=== PATIENT | male | born 1950 | race Caucasian/White ===

== ENCOUNTER → 2018-03-12 08:03 | Outpatient (CLI) | payer MEDICARE, OTHER, SELFPAY ==
[2018-03-12 12:39] LABS: Absolute Lymphocyte Count 1.04 X10^3/ul (0.83-4.51); Absolute Neutrophil Count 3.6 X10^3/uL (2.0-7.7); Basophil# 0.04 X10^3/uL; Basophil% 0.7 % (0-1); Eosinophil# 0.24 X10^3/uL; Eosinophils% 4.2 % (0-5); Hematocrit 37.7 % (40-54); Hemoglobin 11.5 g/dl (13.0-16.5); Lymphocyte # 1.04 X10^3/ul (4.0); Lymphocyte % 18.2 % (19-41); Mean Corp Hgb Conc 30.5 g/gl (32-36); Mean Corpuscular Hgb 26.9 pg (27.0-32.0); Mean Corpuscular Volume 88.1 fL (80-94); Mean Platelet Vol. 11.8 fl (6.2-12.0); Monocyte# 0.74 X10^3/uL; Neutrophil % 63.2 % (47-70); Platelet Count 213 K/mm3 (150-450); RBC Distribution Width CV 13.6 % (11.6-14.6); RBC Distribution Width SD 43.2 fl (35.1-43.9); Red Blood Count 4.28 M/mm3 (4.6-6.2); White Blood Count 5.7 K/mm3 (4.4-11.0)
[2018-03-12 12:41] LABS: POSITIVE COUNT NO; POSITIVE DIFFERENTIAL NO; POSITIVE MORPHOLOGY NO
[2018-03-12 12:56] LABS: ALB/GLOB Ratio 0.9 RATIO (0.9-2.4); AST(SGOT) 15 U/L (15-37); Alanine Aminotransfer ALT/SGPT 31 U/L (16-61); Albumin, Serum 3.3 g/dL (3.2-5.0); Alkaline Phosphatase 74 U/L (45-117); Anion Gap 7 (5-15); BUN 30 mg/dL (7-18); BUN/Creat Ratio 23.8 RATIO (10-20); Calcium,Total 8.4 mg/dL (8.5-10.1); Chloride 108 mmol/L (98-107); Cholesterol 200 mg/dL (200); Creatinine, Serum 1.26 mg/dL (0.70-1.30); EST Glomerular Filtration Rate 60 mL/min (>60); Est Glom Filt Rate - Afr Amer 73 mL/min (>60); Globulin 3.6 g/dL (2.2-4.2); Glucose 131 mg/dL (74-106); High Density Lipoprotein 44 mg/dL; PSA,Total - Annual Screen 1.07 ng/mL (0.00-4.00); Potassium 4.2 mmol/L (3.5-5.1); Protein, Total 6.9 g/dL (6.4-8.2); Sodium Level 141 mmol/L (136-145); Triglycerides 229 mg/dL; Very Low Density Lipoprotein 46 mg/dL (5-40)
[2018-03-12 13:04] LABS: Microalbumin,Random Urine 33.9 mg/L (NO RANGE EST.); Microalbumin:Creatinine Ratio 27.6 mg/g CRE (<30 mg/g CRE)
== END ==
PROVIDERS: Family Provider Family Medicine; PCP Family Medicine; Visit Provider Family Medicine
DX: E11.59 Type 2 diabetes mellitus with other circulatory complications (principal); I10 Essential (primary) hypertension; E78.5 Hyperlipidemia, unspecified; Z12.5 Encounter for screening for malignant neoplasm of prostate
CPT/HCPCS: 36415; 80053; 80061; 82043; 82570; 83036; 84153; 85025; G0103

== ENCOUNTER 2018-07-05 12:13 | Inpatient (IN) | payer MEDICARE, OTHER, SELFPAY ==
[2018-04-04 09:29] VITALS: BMI 38.5
[2018-07-05] VITALS (8 sets, daily range): BP systolic 117–153; BP diastolic 52–69; PULSE 72–104; RESP 15–18; TEMP 36.7–37.4; O2SAT 93–98; BMI 37.5
--- NOTE | 2018-07-05 12:50 | PCM.CONS.GEN ---
Reason for Consult Date of Consultation: 07/05/18 Reason for Consultation: Hematochezia History of Present Illness: The patient is a 67 year old M who noted onset of bright blood mixed within his stool starting this morning. He denied melena before. He notes no abdominal pain. He had a prior screening colonoscopy 20 years previously. His father of colon cancer which was the reason for his prior endoscopy. He has not had prior upper endoscopy. He takes a 81mg aspirin but has no other anticoagulants. hemoglobin today is 10.0 it is decreased approximately 2 g from previously measured Past Medical History Past Medical History (Chronic Problems): Chronic Problems (Last Reviewed 04/04/17 @ 10:59 by Vincent Gonzalez MD) History of left heart catheterization (Chronic) 09/26/2015 @ [facility]>tsfer to [facility] for CABG History of non-ST elevation myocardial infarction (NSTEMI) (Chronic) Hyperlipidemia (Chronic) Obstructive sleep apnea (Chronic) Diabetes mellitus, type II (Chronic) Hypertension (Chronic) Hx of CABG (Chronic) CABG X 3: BLANCO to LAD, SVG to PDA and SVG to Ramus 09/29/2015 @ [facility] per Dr. Milton Atherosclerotic heart disease of [place] coronary artery without angina pectoris (Chronic) CABG X 3: BLANCO to LAD, SVG to PDA and SVG to Ramus 09/29/2015 @ [facility] per Dr. Milton Obesity (BMI 30-39.9) (Chronic) Medical History: Medical History (Last Reviewed 04/04/17 @ 10:59 by Vincent Gonzalez MD) History of non-ST elevation myocardial infarction (NSTEMI) (Chronic) I25.2 Hyperlipidemia (Chronic) E78.5 Obstructive sleep apnea (Chronic) G47.33 Diabetes mellitus, type II (Chronic) E11.9 Hypertension (Chronic) I10 Atherosclerotic heart disease of [place] coronary artery without angina pectoris (Chronic) I25.10 CABG X 3: BLANCO to LAD, SVG to PDA and SVG to Ramus 09/29/2015 @ [facility] per Dr. Milton Obesity (BMI 30-39.9) (Chronic) E66.9 Allergies No Known Allergies Allergy (Verified 07/05/18 12:14) Home Medications: Ambulatory Orders Medication Instructions Recorded Amlodipine Besylate 10 mg PO DAILY 08/30/15 Garlic 2,000 mg PO DAILY 08/30/15 [place]-3 Fatty Acids/Fish Oil 2 ea PO BID 08/30/15 [[place] 3 1,000 mg Softgel] Aspirin [Aspirin, Baby] 81 mg PO DAILY@0800 09/23/15 Multivitamin [Daily Multiple 1 ea PO DAILY 09/23/15 Vitamin] Pravastatin [Pravachol] 80 mg PO QHS 11/03/15 cinnamon bark 500 mg capsule 1,000 mg PO BID ea 03/22/17 hydrochlorothiazide 25 mg tablet 25 mg PO QDAY 04/04/17 metformin 1,000 mg tablet 1,000 mg PO BID 04/04/17 lisinopril 40 mg tablet 40 mg PO DAILY 04/04/18 Surgical History: Surgical History (Last Reviewed 04/04/17 @ 10:59 by Vincent Gonzalez MD) History of left heart catheterization (Chronic) Z98.890 09/26/2015 @ [facility]>tsfer to [facility] for CABG Hx of CABG (Chronic) Z95.1 CABG X 3: BLANCO to LAD, SVG to PDA and SVG to Ramus 09/29/2015 @ [facility] per Dr. Milton Surgical History: - - Right thoracentesis for pleural effusion, Drain tube bile duct 08/24. Smoking Status: Never smoker - *Family History Maternal Family History: Family History (Last Reviewed 04/04/17 @ 10:59 by Vincent Gonzalez MD) Mother CAD (coronary artery disease) Hypertension Father Colon cancer Sister Parkinson's disease History Items: Diabetes Paternal Family History: Family History (Last Reviewed 04/04/17 @ 10:59 by Vincent Gonzalez MD) Mother CAD (coronary artery disease) Hypertension Father Colon cancer Sister Parkinson's disease History Items: Heart Disease Review of Systems Constitutional: Denies: Chills, Fever, Weight Change HEENT: Denies: Head Aches, Sinus Congestion, Sinus Drainage Cardiovascular: Denies: Chest Pain, Palpitations Respiratory: Denies: Cough, Shortness of breath at rest, Sputum production Gastrointestinal: Reports: Hematochezia. Denies: Abdominal Pain, Nausea, Vomiting Genitourinary: Denies: Dysuria Musculoskeletal: Denies: Joint Pain, Joint Tenderness Skin: Denies: Rash, Wounds Neurological: Denies: Numbness, Tingling, Focal weakness Psychiatric: Denies: Anxiety, Depression, Homicidal Ideations, Suicidal Ideations Hematologic/ Lymphatic: Denies: Easy Bruising, Easy Bleeding - Physical Exam General: Alert, Oriented x3, Cooperative Lungs: Clear to auscultation, Normal air movement Cardiovascular: Regular rate, No murmurs Abdomen: Bowel Sounds Present, Soft, Non Tender Vital Signs Temp Pulse Resp BP Pulse Ox 98.1 F 72 18 124/57 H 98 07/05/18 12:14 07/05/18 12:14 07/05/18 12:14 07/05/18 12:14 07/05/18 12:14 Oxygen Delivery Method Room Air Weight: 115.122 kg Body Mass Index (BMI) 37.5 Finger Stick Blood Glucose 391 Laboratory Tests Past 24 Hrs 07/05/18 07/05/18 07/05/18 12:30 12:30 12:30 WBC Pending RBC Pending Hgb Pending Hct Pending MCV Pending MCH Pending MCHC Pending RDW Pending RDW Differential Pending Plt Count Pending Neut % (Auto) Pending Absolute Neuts (auto) Pending Total Counted Pending PT Pending INR Pending APTT Pending Sodium Pending Potassium Pending Chloride Pending Carbon Dioxide Pending Anion Gap Pending BUN Pending Creatinine Pending Est GFR (MDRD) Af Amer Pending Est GFR (MDRD) Non-Af Pending BUN/Creatinine Ratio Pending Glucose Pending Calcium Pending Blood Type Antibody Screen 07/05/18 12:30 WBC RBC Hgb Hct MCV MCH MCHC RDW RDW Differential Plt Count Neut % (Auto) Absolute Neuts (auto) Total Counted PT INR APTT Sodium Potassium Chloride Carbon Dioxide Anion Gap BUN Creatinine Est GFR (MDRD) Af Amer Est GFR (MDRD) Non-Af BUN/Creatinine Ratio Glucose Calcium Blood Type Pending Antibody Screen Pending Assessment/Plan All Active Problems (Last Reviewed 04/04/17 @ 10:59 by Vincent Gonzalez MD) Carotid artery stenosis (Acute) Acute cholecystitis (Acute) Lactic acid increased (Acute) Abdominal pain (Acute) lower GI bleed-hematochezia I plan to perform upper and lower endoscopy. The patient understand the risks, benefits, complications and possible alternatives and consents to endoscopy. Plan for GoLYTELY bowel prep tonight and nothing by mouth with plans for endoscopy to 8:00 tomorrow morning. I already spoken with endoscopy staff and anesthesia.
--- NOTE | 2018-07-05 12:54 | CON.PCM_ITS ---
Reason for Consult Date of Consultation: 07/05/18 Reason for Consultation: Hematochezia History of Present Illness: The patient is a 67 year old M who noted onset of bright blood mixed within his stool starting this morning. He denied melena before. He notes no abdominal pain. He had a prior screening colonoscopy 20 years previously. His father of colon cancer which was the reason for his prior endoscopy. He has not had prior upper endoscopy. He takes a 81mg aspirin but has no other anticoagulants. hemoglobin today is 10.0 it is decreased approximately 2 g from previously measured Past Medical History Past Medical History (Chronic Problems): Chronic Problems (Last Reviewed 04/04/17 @ 10:59 by Vincent Gonzalez MD) History of left heart catheterization (Chronic) 09/26/[address] [facility]>tsfer to [facility] for CABG History of non-ST elevation myocardial infarction (NSTEMI) (Chronic) Hyperlipidemia (Chronic) Obstructive sleep apnea (Chronic) Diabetes mellitus, type II (Chronic) Hypertension (Chronic) Hx of CABG (Chronic) CABG X 3: BLANCO to LAD, SVG to PDA and SVG to Ramus 09/29/2015 @ [facility] per Dr. Milton Atherosclerotic heart disease of [place] coronary artery without angina pectoris (Chronic) CABG X 3: BLANCO to LAD, SVG to PDA and SVG to Ramus 09/29/2015 @ [facility] per Dr. Mitlon Obesity (BMI 30-39.9) (Chronic) Medical History: Medical History (Last Reviewed 04/04/17 @ 10:59 by Vincent Gonzalez MD) History of non-ST elevation myocardial infarction (NSTEMI) (Chronic) I25.2 Hyperlipidemia (Chronic) E78.5 Obstructive sleep apnea (Chronic) G47.33 Diabetes mellitus, type II (Chronic) E11.9 Hypertension (Chronic) I10 Atherosclerotic heart disease of [place] coronary artery without angina pectoris (Chronic) I25.10 CABG X 3: BLANCO to LAD, SVG to PDA and SVG to Ramus 09/29/2015 @ [facility] per Dr. Milton Obesity (BMI 30-39.9) (Chronic) E66.9 Allergies No Known Allergies Allergy (Verified 07/05/18 12:14) Home Medications: Ambulatory Orders Medication Instructions Recorded Amlodipine Besylate 10 mg PO DAILY 08/30/15 Garlic 2,000 mg PO DAILY 08/30/15 [place]-3 Fatty Acids/Fish Oil 2 ea PO BID 08/30/15 [[place] 3 1,000 mg Softgel] Aspirin [Aspirin, Baby] 81 mg PO DAILY@0800 09/23/15 Multivitamin [Daily Multiple 1 ea PO DAILY 09/23/15 Vitamin] Pravastatin [Pravachol] 80 mg PO QHS 11/03/15 cinnamon bark 500 mg capsule 1,000 mg PO BID ea 03/22/17 hydrochlorothiazide 25 mg tablet 25 mg PO QDAY 04/04/17 metformin 1,000 mg tablet 1,000 mg PO BID 04/04/17 lisinopril 40 mg tablet 40 mg PO DAILY 04/04/18 Surgical History: Surgical History (Last Reviewed 04/04/17 @ 10:59 by Vincent Gonzalez MD) History of left heart catheterization (Chronic) Z98.890 09/26/[address] [facility]>tsfer to [facility] for CABG Hx of CABG (Chronic) Z95.1 CABG X 3: BLANCO to LAD, SVG to PDA and SVG to Ramus 09/29/2015 @ [facility] per Dr. Milton Surgical History: - - Right thoracentesis for pleural effusion, Drain tube bile duct 08/24. Smoking Status: Never smoker - *Family History Maternal Family History: Family History (Last Reviewed 04/04/17 @ 10:59 by Vincent Gonzalez MD) Mother CAD (coronary artery disease) Hypertension Father Colon cancer Sister Parkinson's disease History Items: Diabetes Paternal Family History: Family History (Last Reviewed 04/04/17 @ 10:59 by Vincent Gonzalez MD) Mother CAD (coronary artery disease) Hypertension Father Colon cancer Sister Parkinson's disease History Items: Heart Disease Review of Systems Constitutional: Denies: Chills, Fever, Weight Change HEENT: Denies: Head Aches, Sinus Congestion, Sinus Drainage Cardiovascular: Denies: Chest Pain, Palpitations Respiratory: Denies: Cough, Shortness of breath at rest, Sputum production Gastrointestinal: Reports: Hematochezia. Denies: Abdominal Pain, Nausea, Vomiting Genitourinary: Denies: Dysuria Musculoskeletal: Denies: Joint Pain, Joint Tenderness Skin: Denies: Rash, Wounds Neurological: Denies: Numbness, Tingling, Focal weakness Psychiatric: Denies: Anxiety, Depression, Homicidal Ideations, Suicidal [place]le ations Hematologic/ Lymphatic: Denies: Easy Bruising, Easy Bleeding - Physical Exam General: Alert, Oriented x3, Cooperative Lungs: Clear to auscultation, Normal air movement Cardiovascular: Regular rate, No murmurs Abdomen: Bowel Sounds Present, Soft, Non Tender Vital Signs Temp Pulse Resp BP Pulse Ox 98.1 F 72 18 124/57 H 98 07/05/18 12:14 07/05/18 12:14 07/05/18 12:14 07/05/18 12:14 07/05/18 12:14 Oxygen Delivery Method Room Air Weight: 115.122 kg Body Mass Index (BMI) 37.5 Finger Stick Blood Glucose 391 Laboratory Tests Past 24 Hrs 07/05/18 07/05/18 07/05/18 12:30 12:30 12:30 WBC Pending RBC Pending Hgb Pending Hct Pending MCV Pending MCH Pending MCHC Pending RDW Pending RDW Differential Pending Plt Count Pending Neut % (Auto) Pending Absolute Neuts (auto) Pending Total Counted Pending PT Pending INR Pending APTT Pending Sodium Pending Potassium Pending Chloride Pending Carbon Dioxide Pending Anion Gap Pending BUN Pending Creatinine Pending Est GFR (MDRD) Af Amer Pending Est GFR (MDRD) Non-Af Pending BUN/Creatinine Ratio Pending Glucose Pending Calcium Pending Blood Type Antibody Screen 07/05/18 12:30 WBC RBC Hgb Hct MCV MCH MCHC RDW RDW Differential Plt Count Neut % (Auto) Absolute Neuts (auto) Total Counted PT INR APTT Sodium Potassium Chloride Carbon Dioxide Anion Gap BUN Creatinine Est GFR (MDRD) Af Amer Est GFR (MDRD) Non-Af BUN/Creatinine Ratio Glucose Calcium Blood Type Pending Antibody Screen Pending Assessment/Plan All Active Problems (Last Reviewed 04/04/17 @ 10:59 by Vincent Gonzalez MD) Carotid artery stenosis (Acute) Acute cholecystitis (Acute) Lactic acid increased (Acute) Abdominal pain (Acute) lower GI bleed-hematochezia I plan to perform upper and lower endoscopy. The patient understand the risks, benefits, complications and possible alternatives and consents to endoscopy. Plan for GoLYTELY bowel prep tonight and nothing by mouth with plans for endoscopy to 8:00 tomorrow morning. I already spoken with endoscopy staff and anesthesia.
[2018-07-05 12:56] LABS: Absolute Neutrophil Count 5.8 X10^3/uL (2.0-7.7); Basophil# 0.04 X10^3/uL; Basophil% 0.5 % (0-1); Eosinophil# 0.08 X10^3/uL; Eosinophils% 1.1 % (0-5); Hemoglobin 10.2 g/dl (13.0-16.5); Lymphocyte % 10.6 % (19-41); Mean Corp Hgb Conc 30.9 g/gl (32-36); Mean Corpuscular Hgb 26.4 pg (27.0-32.0); Mean Corpuscular Volume 85.5 fL (80-94); Mean Platelet Vol. 11.2 fl (6.2-12.0); Monocyte# 0.75 X10^3/uL; Neutrophil # 5.81 X10^3/uL (2.7-7.7); Neutrophil % 77.3 % (47-70); Platelet Count 203 K/mm3 (150-450); RBC Distribution Width CV 14.6 % (11.6-14.6); Red Blood Count 3.86 M/mm3 (4.6-6.2); White Blood Count 7.5 K/mm3 (4.4-11.0)
[2018-07-05 12:57] LABS: POSITIVE COUNT NO; POSITIVE DIFFERENTIAL NO; POSITIVE MORPHOLOGY NO
[2018-07-05 13:02] LABS: International Normalized Ratio 1.1; Prothrombin Time (Protime)PT. 13.7 SECONDS (11.7-14.9)
[2018-07-05 13:03] LABS: Partial Thromboplast Time 29.8 Seconds (24.1-36.2)
[2018-07-05] MEDS: 0.9% Normal Saline 1,000 ML 150 ML IV ×2 (13:14→18:05)
[2018-07-05 13:20] LABS: Anion Gap 7 (5-15); BUN 49 mg/dL (7-18); BUN/Creat Ratio 29.2 RATIO (10-20); Calcium,Total 8.4 mg/dL (8.5-10.1); Chloride 104 mmol/L (98-107); Creatinine, Serum 1.68 mg/dL (0.70-1.30); EST Glomerular Filtration Rate 43 mL/min (>60); Est Glom Filt Rate - Afr Amer 52 mL/min (>60); Estimated Creatinine Clearance 42.08 ml/min; Glucose 274 mg/dL (74-106); Potassium 5.3 mmol/L (3.5-5.1); Sodium Level 135 mmol/L (136-145)
--- NOTE | 2018-07-05 14:21 | ED.VISSUMM ---
- ER Visit Summary Date of Service: 07/05/18 Chief Complaint: GI bleed History of Present Illness: The patient is a 67 M who reports bright red blood in his stool today. He initially thought it was the red cough syrup he had been taking recently. Second episode of bloody stool made him feel lightheaded and he states he fell off the commode. He did not pass out. Patient has a history of coronary disease, [place], diabetes, sleep apnea. He takes baby aspirin daily but no other anticoagulants. He states his last colonoscopy was approximately 20 years ago. Physical Examination: Vital signs unremarkable. Patient lying in bed no acute distress. Heart is regular rate and rhythm. Lung sounds are clear. Abdomen is soft with no focal tenderness. Hypoactive bowel sounds are present. Rectal examination reveals what appears to be bright red blood on gloved finger. Test Results: CBC was normal white count with hemoglobin 10.2. In March his hemoglobin was 11.5. Chemistry studies reveal glucose of 274, BUN 49, creatinine 1.68. In March his creatinine was 1.26. Stool guaiac does return positive. Emergency Department Course and Treatment: Patient's vital signs been stable here. He has been receiving IV fluids. Dr. Arango saw the patient in the emergency room. He will plan to do upper and lower endoscopy tomorrow. Treatment Plan: [] Disposition: Admit Impression: GI bleed This note was generated with [employer] dictation software. It may contain incorrect words, spelling, and punctuation that were not noted in review of the chart prior to signing ED Disposition - Plan for ED Patient: Referrals: Refugio Peterson DO [Primary Care Provider] -
--- NOTE | 2018-07-05 14:49 | HP.PCM_ITS ---
Problem List (1) GI (gastrointestinal bleed) Status: Acute (2) Pre-syncope Status: Acute (3) Carotid artery stenosis Status: Chronic Comment: per Carotid doppler done10/01/15 prior to CABG @ [facility]. Right common carotid 50-69% (4) History of left heart catheterization Status: Chronic [facility] (5) History of non-ST elevation myocardial infarction (NSTEMI) Status: Chronic (6) Hyperlipidemia Status: Chronic Qualifiers: Hyperlipidemia type: pure hypercholesterolemia Qualified Code(s): E78.00 - Pure hypercholesterolemia, unspecified; E78.0 - Pure hypercholesterolemia (7) Obstructive sleep apnea Status: Chronic (8) Diabetes mellitus, type II Status: Chronic (9) Hypertension Status: Chronic Qualifiers: Hypertension type: essential hypertension Qualified Code(s): I10 - Essent ial (primary) hypertension (10) Hx of CABG Status: Chronic Comment: CABG X 3: BLANCO to LAD, SVG to PDA and SVG to Ramus 09/29/2015 @ [facility] per Dr. Milton (11) Atherosclerotic heart disease of [place] coronary artery without angina pectoris Status: Chronic Qualifiers: [place] vs. transplanted heart: [place] heart Qualified Code(s): I25.10 - Atherosclerotic heart disease of [place] coronary artery without angina pectoris Comment: CABG X 3: BLANCO to LAD, SVG to PDA and SVG to Ramus 09/29/2015 @ [facility] per Dr. Milton (12) Acute cholecystitis Status: Acute (13) Obesity (BMI 30-39.9) Status: Chronic (14) Lactic acid increased Status: Acute (15) Abdominal pain Status: Acute Qualifiers: Abdominal location: right upper quadrant Qualified Code(s): R10.11 - Right upper quadrant pain History of Present Illness Date of Admission: 07/05/18 Chief Complaint: Blood in stool The patient is a 67 year old M with past medical history cigar for hypertension, dyslipidemia CAD status post CABG who presented with blood in the stool. Per patient he was in his usual state of health until the morning of this admission when he used the bathroom and noticed sundar blood in the toilet bowl. Patient in addition did experience lightheadedness and apparently fell but did not lose consciousness. Subsequently presented to the emergency department and assessment of acute GI bleed of undetermined etiology made admitted to a monitored bed for further management. Patient was seen and assessed by Dr. Arango prior to patient being admitted with plans for patient undergo both upper and lower endoscopic evaluation on 07/06/2018. Past Medical History Past Medical History (Chronic Problems): Chronic Problems (Last Reviewed 04/04/17 @ 10:59 by Vincent Gonzalez MD) Carotid artery stenosis (Chronic) per Carotid doppler done10/01/15 prior to CABG @ [facility]. Right common carotid 50-69% History of left heart catheterization (Chronic) 09/26/2015 @ [facility]>tsfer to [facility] for CABG History of non-ST elevation myocardial infarction (NSTEMI) (Chronic) Hyperlipidemia (Chronic) Obstructive sleep apnea (Chronic) Diabetes mellitus, type II (Chronic) Hypertension (Chronic) Hx of CABG (Chronic) CABG X 3: BLANCO to LAD, SVG to PDA and SVG to Ramus 09/29/2015 @ [facility] per Dr. Milton Atherosclerotic heart disease of [place] coronary artery without angina pectoris (Chronic) CABG X 3: BLANCO to LAD, SVG to PDA and SVG to Ramus 09/29/2015 @ [facility] per Dr. Milton Obesity (BMI 30-39.9) (Chronic) Medical History: Medical History (Last Reviewed 07/05/18 @ 15:00 by Cr Hendricks MD) History of non-ST elevation myocardial infarction (NSTEMI) (Chronic) I25.2 Hyperlipidemia (Chronic) E78.5 Obstructive sleep apnea (Chronic) G47.33 Diabetes mellitus, type II (Chronic) E11.9 Hypertension (Chronic) I10 Atherosclerotic heart disease of [place] coronary artery without angina pectoris (Chronic) I25.10 CABG X 3: BLANCO to LAD, SVG to PDA and SVG to Ramus 09/29/2015 @ [facility] per Dr. Milton Obesity (BMI 30-39.9) (Chronic) E66.9 Allergies No Known Allergies Allergy (Verified 07/05/18 12:14) Home Medications: Ambulatory Orders Medication Instructions Recorded Amlodipine Besylate 10 mg PO DAILY 08/30/15 Garlic 2,000 mg PO DAILY 08/30/15 Simla-3 Fatty Acids/Fish Oil 2 ea PO BID 08/30/15 [Simla 3 1,000 mg Softgel] Aspirin [Aspirin, Baby] 81 mg PO DAILY@0800 09/23/15 Multivitamin [Daily Multiple 1 ea PO DAILY 09/23/15 Vitamin] Pravastatin [Pravachol] 80 mg PO QHS 11/03/15 cinnamon bark 500 mg capsule 1,000 mg PO BID ea 03/22/17 hydrochlorothiazide 25 mg tablet 25 mg PO QDAY 04/04/17 metformin 1,000 mg tablet 1,000 mg PO BID 04/04/17 lisinopril 40 mg tablet 40 mg PO DAILY 04/04/18 Surgical History: Surgical History (Last Reviewed 07/05/18 @ 15:00 by Cr Hendricks MD) History of left heart catheterization (Chronic) Z98.890 09/26/2015 @ [facility]>tsfer to [facility] for CABG Hx of CABG (Chronic) Z95.1 CABG X 3: BLANCO to LAD, SVG to PDA and SVG to Ramus 09/29/2015 @ [facility] per Dr. Milton Surgical History: - - Right thoracentesis for pleural effusion, Drain tube bile duct 08/24. Smoking Status: Never smoker - *Family History Maternal Family History: Family History (Last Reviewed 07/05/18 @ 15:00 by Cr Hendricks MD) Mother CAD (coronary artery disease) Hypertension Father Colon cancer Sister Parkinson's disease History Items: Diabetes Paternal Family History: Family History (Last Reviewed 07/05/18 @ 15:00 by Cr Hendricks MD) Mother CAD (coronary artery disease) Hypertension Father Colon cancer Sister Parkinson's disease History Items: Heart Disease Review of Systems Constitutional: Reports: Weakness HEENT: Denies: Head Aches, Sinus Congestion, Sinus Drainage Cardiovascular: Reports: Syncope. Denies: Chest Pain, Orthopnea, Palpitations, Paroxysmal Noc. Dyspnea Respiratory: Denies: Cough, Shortness of breath at rest, Shortness of breath upon exertion, Sputum production Gastrointestinal: Denies: Abdominal Pain, Hematemesis, Hematochezia, Nausea, Melena, Vomiting Genitourinary: Denies: Dysuria, Frequency, Hematuria, Urgency Musculoskeletal: Denies: Joint Pain, Joint Tenderness Skin: Denies: Rash Neurological: Denies: Focal weakness, Numbness, Tingling Psychiatric: Denies: Homicidal Ideations, Suicidal Ideations Hematologic/ Lymphatic: Denies: Easy Bruising, Easy Bleeding VTE Information - Inpt Only VTE Present on Admission: No VTE Mechan Device Prophylaxis: Knee High JUVE Hose VTE Pharm Prophylaxis ordered?: No Reason prophylaxis not ordered:: Medical Contraindication Patient Problems: Active and Suspected Problems (Last Reviewed 04/04/17 @ 10:59 by Vincent Gonzalez MD) GI (gastrointestinal bleed) (Acute) Pre-syncope (Acute) Objective: GENERAL: cooperative HEENT: Atraumatic; moist oral mucosa EYES; Anicteric, Normal Conjunctiva NECK; supple, normal thyroid, no distended JVD. RESPIRATORY: Diminished to auscultation bilaterally, CARDIOVASCULAR: Regular S1 S2, no audible murmurs GI: soft, non-tender, normoactive bowel sounds, : No Renal angle tenderness; EXTREMITIES: No edema, no clubbing, no cyanosis. MUSCULOSKELETAL: No Joint Tenderness; no muscle waisting NEURO: Awake; no lateralizing signs. SKIN: No Rash PSYCH; Normal affect - Physical Exam Vital Signs Temp Pulse Resp BP Pulse Ox 98.1 F 86 16 125/55 H 96 07/05/18 12:14 07/05/18 14:42 07/05/18 14:42 07/05/18 14:42 07/05/18 14:42 Oxygen Delivery Method Room Air Weight: 115.122 kg Body Mass Index (BMI) 37.5 Finger Stick Blood Glucose 391 Microbiology Past 72 Hours 07/05/18 13:35 Stool Occult Blood (SANTHOSH) - Final Stool Occult Blood Positive Laboratory Tests Past 24 Hrs 07/05/18 07/05/18 07/05/18 12:30 12:30 12:30 WBC 7.5 RBC 3.86 L Hgb 10.2 L Hct 33.0 L MCV 85.5 MCH 26.4 L MCHC 30.9 L RDW 14.6 RDW Differential 46.0 H Plt Count 203 MPV 11.2 Immature Gran % (Auto) 0.500 Neut % (Auto) 77.3 H Lymph % (Auto) 10.6 L [place] % (Auto) 10.0 Eos % (Auto) 1.1 Baso % (Auto) 0.5 Absolute Neuts (auto) 5.8 Absolute Lymphs (auto) 0.80 L Total Counted Not Reportable PT 13.7 INR 1.1 APTT 29.8 Sodium 135 L Potassium 5.3 H Chloride 104 Carbon Dioxide 24.0 Anion Gap 7 BUN 49 H Creatinine 1.68 H Estim Creat Clear Calc 42.08 Est GFR (MDRD) Af Amer 52 L Est GFR (MDRD) Non-Af 43 L BUN/Creatinine Ratio 29.2 H Glucose 274 H Calcium 8.4 L Blood Type Antibody Screen 07/05/18 12:30 WBC RBC Hgb Hct MCV MCH MCHC RDW RDW Differential Plt Count MPV Immature Gran % (Auto) Neut % (Auto) Lymph % (Auto) [place] % (Auto) Eos % (Auto) Baso % (Auto) Absolute Neuts (auto) Absolute Lymphs (auto) Total Counted PT INR APTT Sodium Potassium Chloride Carbon Dioxide Anion Gap BUN Creatinine Estim Creat Clear Calc Est GFR (MDRD) Af Amer Est GFR (MDRD) Non-Af BUN/Creatinine Ratio Glucose Calcium Blood Type O POSITIVE Antibody Screen NEGATIVE Assessment/Plan All Active Problems (Last Reviewed 04/04/17 @ 10:59 by Vincent Gonzalez MD) GI (gastrointestinal bleed) (Acute) Pre-syncope (Acute) Acute cholecystitis (Acute) Lactic acid increased (Acute) Abdominal pain (Acute) Patient is a 67-year-old gentleman who presented with bleeding per rectum and presyncope 1. Acute Lower GI bleed: Patient has been admitted to monitored bed. Patient was typed and screened for 2 unit PRBC started and PPI consultation placed to Dr. Otto who did evaluate the patient in the emergency department with plans for patient undergo endoscopic evaluation by yusef on 07/06/2018. 2. Presyncope secondary to above patient has been admitted to monitored bed for subsequent management 3. Coronary artery disease status post CABG; CABG X 3: BLANCO to LAD, SVG to PDA and SVG to Ramus 09/29/2015 @ [facility] 4. Essential hypertension held patient antihypertensive medication with patient having experienced presyncope 5. Dyslipidemia-patient is on statin therapy, continued at home dose 6. Diabetes mellitus type II: Controlled, patient's oral hypoglycemics held. Placed on Accu-Cheks a.c. and at bedtime and covered with sliding scale insulin 7. Obesity with BMI of 37.5 weight loss advised 8. DVT prophylaxis bilateral SCDs Code Visit Inpatient E&M: 34994 Init Hosp L3
[2018-07-05 17:55] LABS: Bedside Glucose 168 mg/dL (70-110)
[2018-07-05 18:05] LABS: Hematocrit 30.8 % (40-54); Hemoglobin 9.8 g/dl (13.0-16.5)
[2018-07-05] MEDS: Electrolyte Solution/Peg's 4000 ML PO (18:07)
[2018-07-05] MEDS: Pravastatin 80 MG Tablet PO (21:16)
[2018-07-05 22:35] LABS: Bedside Glucose 205 mg/dL (70-110)
[2018-07-05 22:44] LABS: Hematocrit 29.3 % (40-54); Hemoglobin 9.2 g/dl (13.0-16.5)
[2018-07-06] VITALS (13 sets, daily range): BP systolic 115–165; BP diastolic 58–76; PULSE 62–113; RESP 16–18; TEMP 36.3–37.4; O2SAT 92–97; BMI 37.5
[2018-07-06] MEDS: 0.9% Normal Saline 1,000 ML 100 ML IV ×3 (01:59→21:53)
[2018-07-06 02:34] LABS: Hematocrit 32.1 % (40-54); Hemoglobin 10.2 g/dl (13.0-16.5)
[2018-07-06 06:41] LABS: Bedside Glucose 193 mg/dL (70-110)
[2018-07-06 07:38] LABS: Absolute Lymphocyte Count 0.65 X10^3/ul (0.83-4.51); Absolute Neutrophil Count 4.2 X10^3/uL (2.0-7.7); Basophil# 0.03 X10^3/uL; Basophil% 0.5 % (0-1); Eosinophil# 0.05 X10^3/uL; Eosinophils% 0.8 % (0-5); Lymphocyte # 0.65 X10^3/ul (4.0); Lymphocyte % 10.8 % (19-41); Mean Corpuscular Hgb 26.5 pg (27.0-32.0); Mean Corpuscular Volume 85.3 fL (80-94); Mean Platelet Vol. 11.9 fl (6.2-12.0); Monocyte# 1.05 X10^3/uL; Monocyte% 17.4 % (0-10); Neutrophil # 4.18 X10^3/uL (2.7-7.7); Neutrophil % 69.5 % (47-70); Platelet Count 181 K/mm3 (150-450); RBC Distribution Width CV 14.5 % (11.6-14.6); RBC Distribution Width SD 43.2 fl (35.1-43.9)
[2018-07-06 07:43] LABS: POSITIVE COUNT NO; POSITIVE DIFFERENTIAL NO; POSITIVE MORPHOLOGY NO
[2018-07-06 07:56] LABS: Anion Gap 5 (5-15); BUN 33 mg/dL (7-18); BUN/Creat Ratio 25.4 RATIO (10-20); Calcium,Total 7.9 mg/dL (8.5-10.1); Chloride 109 mmol/L (98-107); EST Glomerular Filtration Rate 58 mL/min (>60); Est Glom Filt Rate - Afr Amer 70 mL/min (>60); Estimated Creatinine Clearance 54.38 ml/min; Glucose 190 mg/dL (74-106); Potassium 4.8 mmol/L (3.5-5.1); Sodium Level 138 mmol/L (136-145)
--- NOTE | 2018-07-06 08:00 | IMM_PTH ---
PATIENT: JESUS ALBERTO BUSTILLO Jr. LOC: [facility] U#:[id number] AGE/SX: 67/M ROOM: [facility] RE07/05/[address]: Dr. Jayden Vilchis DO : 1950 BED: 1 DIS: 07/10/2018 SPEC #: [id number] RECD: 07/07/18 09:22 STATUS: SOUSamia REQ #: [id number] WALESKA: 07/06/18 08:[address]: Fan Otto DEPT: IMMUNOHISTOCHEMISTRY RECD BY: Kay Llanos ENTERED: 07/07/18 09:24 SP TYPE: IMMUNO OTHR DR: MD Dr. Jayden Kenny DO Dr. Mark Stutzman, DO Dr. Paul Moodispaw, MD Tissues: A - Stomach, NOS Procedures: H Pylori (initial) Comments: @ Ordering doctor for H.PYLORI edited from to @ by CONCHA at 07/07/18923 @ Submitting doctor edited from to @ by CONCHA at 07/07/18923 PHYSICIAN & INSTITUTION [place] [id number] SPECIMEN INFORMATION: Tissue Source: A - Gastric antrum biopsy Clinical Info: GI bleed Specimen Number: [id number] CPT code: 82380 METHODOLOGY: Deparaffinized sections of prefer/formalin-fixed tissue or PAP/DQ stained slides are incubated with monoclonal/polyclonal antibodies/oligonucleotide probes. Localization is made via biotin free immunoperoxidase method. Appropriate controls are performed and reacted as expected. Results on target cell population are indicated in the following table: RESULTS: ANTIBODY / CLONE RESULT Block A H Pylori (polyclonal) negative These tests were developed and their performance characteristics determined by [facility]. They may not have been cleared or approved by the U.S. Food and Drug Administration. The FDA has determined that such clearance or approval is not necessary. INTERPRETATION: A. Gastric antrum, biopsy: Negative for Helicobacter pylori organisms. JAYY:paloma 07/08/18
--- NOTE | 2018-07-06 08:00 | EGD_PTH ---
PATIENT: JESUS ALBERTO BUSTILLO Jr. LOC: [facility] U#:[id number] AGE/SX: 67/M ROOM: [facility] RE07/05/[address]: Dr. Jayden Vilchis DO : 1950 BED: 1 DIS: 07/10/2018 SPEC #: [id number] RECD: 07/06/18 09:23 STATUS: IMMANUEL REAyla #: [id number] WALESKA: 07/06/18 08:[address]: Fan Otto DEPT: SURGICAL PATHOLOGY RECD BY: Donna Allison ENTERED: 07/07/18 10:29 SP TYPE: EGD BIOPSY OTHR DR: MD Dr. Jayden Kenny DO Dr. Mark Stutzman, DO Dr. Paul Moodispaw, MD Tissues: A - Gastric mucous membrane B - Ascending colon C - POLYP D - POLYP Procedures: Surgery Specimen Level IV Comments: @ Ordering doctor for SUIV edited from to @ melissa MARTINEZ at 07/07/18 1029 @ Submitting doctor edited from to @ melissa MARTINEZ at 07/07/18 1029 HEADER OPERATION: Colonoscopy, EGD ([facility] [place]) PRE-OP DIAGNOSIS: GI bleed TISSUE SUBMITTED: A. Biopsy gastric antrum, H. Pylori and path, B. Biopsy mass ascending colon, C. Polyp 35 cm, D. Polyp 20 cm MICROSCOPIC DIAGNOSIS A. Gastric antrum, biopsy: Mild gastritis. See microscopic description and comment. B. Mass ascending colon, biopsy: A fragment of colonic mucosa with changes suggestive of serrated adenoma and cautery artifacts. See comment. C. Polyp at 35 cm, biopsy: Fragments of tubulovillous adenoma with high grade dysplasia. See comment. D. Polyp at 20 cm, biopsy: Fragments of tubulovillous adenoma. SJ:paloma 07/08/18 COMMENT A. The results of immunohistochemistry for Helicobacter pylori will be reported separately ([id number]). B. Correlation with clinical, endoscopic findings and appropriate follow up are necessary. C. A pedicle is noted in the larger piece of polyp which is free of adenomatous changes. High grade dysplastic changes are noted on the luminal surface of the polyp. MICROSCOPIC DESCRIPTION Slides are reviewed. A. The specimen shows fragments of gastric mucosa with chronic inflammatory cell infiltrates in the lamina propria consisting of lymphocytes and plasma cells, consistent with mild chronic gastritis. GROSS DESCRIPTION A - Received in fixative is one container labeled with the patient's name and designated biopsy gastric antrum. The specimen consists of one irregular fragment of light gooden soft tissue that measures 0.4 x 0.3 x 0.1 cm. The specimen is totally submitted in one cassette. B - Received in fixative is one container labeled with the patient's name and designated biopsy mass ascending colon. The specimen consists of one irregular fragment of light gooden soft tissue that measures 0.3 x 0.2 x 0.1 cm. The specimen is totally submitted in one cassette. C - Received in fixative is one container labeled with the patient's name and designated polyp 35 cm. The specimen consists of two gooden-pink polyps measuring 2 x 2 x 1.2 cm and 1.5 x 1.5 x 0.8 cm. The larger polyp shows a pedicle and measures 0.5 cm in length and 0.7 cm in diameter. Apparent base of smaller polyp is inked black. The polyp is serially sectioned. The smaller polyp is bisected. The entire specimen is submitted in three cassettes as follows: 1 & 2 - larger polyp, 3 - smaller polyp. D - Received in fixative is one container labeled with the patient's name and designated polyp 20 cm. The specimen consists of multiple irregular fragments of light gooden soft tissue that in aggregate measure 1 x 0.3 x 0.1 cm. The specimen is totally submitted in one cassette. / SJ:rg 07/07/18 TC:1 CPT: 03599 x4
--- NOTE | 2018-07-06 08:39 | RAD_ITS ---
STUDY: X-RAY CHEST REASON FOR EXAM: Male, 67 years old. Cough. TECHNIQUE: Frontal and lateral views of the chest. COMPARISON: September 21, 2015 FINDINGS: The lungs are hyperexpanded and there is a diffuse interstitial pattern unchanged. There are no focal consolidations. There is no demonstrated pleural abnormality. There is stable cardiomegaly with sternotomy wires and changes of coronary artery bypass grafting. Normal mediastinum and benito. Normal visualized pulmonary arteries. There is atherosclerotic calcification of the aortic arch with tortuosity. There are diffuse degenerative changes of the visualized thoracic spine. Normal visualized ribs, clavicles, and shoulders. There is no demonstrated abnormality of the visualized soft tissue structures of the upper abdomen. RAD/Chest PA and Lateral IMPRESSION: Stable appearance of the chest. No acute finding. Electronically Signed: Red Simon MD at 15:27 EDT , Service support ,
--- NOTE | 2018-07-06 08:40 | EKG12_ITS ---
Test Reason : PRE-OP Blood Pressure : / mmHG Vent. Rate : 086 BPM Atrial Rate : 086 BPM P-R Int : 196 ms QRS Dur : 080 ms QT Int : 364 ms P-R-T Axes : 045 067 197 degrees QTc Int : 435 ms Normal sinus rhythm Cannot rule out Inferior infarct , age undetermined ST & T wave abnormality, consider lateral ischemia Abnormal ECG Confirmed by PRIYANKA HAM, ANU ([id number]), editor in chief newspaper HEATHER PHILLIP ([id number]) on 07/08/2018 11:31:37 AM Referred By: PALAK Confirmed By:ANU MATHEW MD
--- NOTE | 2018-07-06 08:41 | PCM.PN.SRG ---
Patient Problems: Active and Suspected Problems (Last Reviewed 07/05/18 @ 15:00 by Cr Hendricks MD) GI (gastrointestinal bleed) (Acute) Pre-syncope (Acute) Subjective: GI bleeding, some liquid stool still in commode - Physical Exam General: Alert, Oriented x3, Cooperative Neck: Supple, No JVD, Negative Carotid Bruits Lungs: Clear to auscultation, Normal air movement Cardiovascular: Regular rate, No murmurs Abdomen: Bowel Sounds Present, Soft, Non Tender Vital Signs Temp Pulse Resp BP Pulse Ox 97.4 F L 89 18 154/60 H 97 07/06/18 03:10 07/06/18 07:00 07/06/18 03:10 07/06/18 03:10 07/06/18 03:10 Oxygen Delivery Method Room Air Weight: 115.3 kg Body Mass Index (BMI) 37.5 Finger Stick Blood Glucose 391 Intake and Output for Last 24 Hours 07/04/18 07/05/18 07/06/18 23:59 23:59 23:59 Intake Total 1932 / 1932 3757 / 3757 Output Total 2 / 2 Balance 1932 / 1932 3755 / 3755 Microbiology Past 72 Hours 07/05/18 13:35 Stool Occult Blood (SANTHOSH) - Final Stool Occult Blood Positive Laboratory Tests Past 24 Hrs 07/05/18 07/05/18 07/05/18 12:30 12:30 12:30 WBC 7.5 RBC 3.86 L Hgb 10.2 L Hct 33.0 L MCV 85.5 MCH 26.4 L MCHC 30.9 L RDW 14.6 RDW Differential 46.0 H Plt Count 203 MPV 11.2 Immature Gran % (Auto) 0.500 Neut % (Auto) 77.3 H Lymph % (Auto) 10.6 L [place] % (Auto) 10.0 Eos % (Auto) 1.1 Baso % (Auto) 0.5 Absolute Neuts (auto) 5.8 Absolute Lymphs (auto) 0.80 L Total Counted Not Reportable PT 13.7 INR 1.1 APTT 29.8 Sodium 135 L Potassium 5.3 H Chloride 104 Carbon Dioxide 24.0 Anion Gap 7 BUN 49 H Creatinine 1.68 H Estim Creat Clear Calc 42.08 Est GFR (MDRD) Af Amer 52 L Est GFR (MDRD) Non-Af 43 L BUN/Creatinine Ratio 29.2 H Glucose 274 H Calcium 8.4 L Magnesium Troponin I Blood Type Antibody Screen Crossmatch 07/05/18 07/05/18 07/05/18 12:30 12:30 16:25 WBC RBC Hgb Hct MCV MCH MCHC RDW RDW Differential Plt Count MPV Immature Gran % (Auto) Neut % (Auto) Lymph % (Auto) [place] % (Auto) Eos % (Auto) Baso % (Auto) Absolute Neuts (auto) Absolute Lymphs (auto) Total Counted PT INR APTT Sodium Potassium Chloride Carbon Dioxide Anion Gap BUN Creatinine Estim Creat Clear Calc Est GFR (MDRD) Af Amer Est GFR (MDRD) Non-Af BUN/Creatinine Ratio Glucose Calcium Magnesium Troponin I 0.018 Blood Type O POSITIVE Antibody Screen NEGATIVE Crossmatch See Detail 07/05/18 07/05/18 07/05/18 17:45 19:15 22:30 WBC RBC Hgb 9.8 L 9.2 L Hct 30.8 L 29.3 L MCV MCH MCHC RDW RDW Differential Plt Count MPV Immature Gran % (Auto) Neut % (Auto) Lymph % (Auto) [place] % (Auto) Eos % (Auto) Baso % (Auto) Absolute Neuts (auto) Absolute Lymphs (auto) Total Counted PT INR APTT Sodium Potassium Chloride Carbon Dioxide Anion Gap BUN Creatinine Estim Creat Clear Calc Est GFR (MDRD) Af Amer Est GFR (MDRD) Non-Af BUN/Creatinine Ratio Glucose Calcium Magnesium Troponin I 0.022 Blood Type Antibody Screen Crossmatch 07/05/18 07/06/18 07/06/18 22:30 02:07 06:00 WBC 6.0 RBC 3.40 L Hgb 10.2 L 9.0 L Hct 32.1 L 29.0 L MCV 85.3 MCH 26.5 L MCHC 31.0 L RDW 14.5 RDW Differential 43.2 Plt Count 181 MPV 11.9 Immature Gran % (Auto) 1.000 H Neut % (Auto) 69.5 Lymph % (Auto) 10.8 L [place] % (Auto) 17.4 H Eos % (Auto) 0.8 Baso % (Auto) 0.5 Absolute Neuts (auto) 4.2 Absolute Lymphs (auto) 0.65 L Total Counted Not Reportable PT INR APTT Sodium Potassium Chloride Carbon Dioxide Anion Gap BUN Creatinine Estim Creat Clear Calc Est GFR (MDRD) Af Amer Est GFR (MDRD) Non-Af BUN/Creatinine Ratio Glucose Calcium Magnesium Troponin I 0.030 Blood Type Antibody Screen Crossmatch 07/06/18 06:00 WBC RBC Hgb Hct MCV MCH MCHC RDW RDW Differential Plt Count MPV Immature Gran % (Auto) Neut % (Auto) Lymph % (Auto) [place] % (Auto) Eos % (Auto) Baso % (Auto) Absolute Neuts (auto) Absolute Lymphs (auto) Total Counted PT INR APTT Sodium 138 Potassium 4.8 Chloride 109 H Carbon Dioxide 24.0 Anion Gap 5 BUN 33 H Creatinine 1.30 Estim Creat Clear Calc 54.38 Est GFR (MDRD) Af Amer 70 Est GFR (MDRD) Non-Af 58 L BUN/Creatinine Ratio 25.4 H Glucose 190 H Calcium 7.9 L Magnesium 2.0 Troponin I Blood Type Antibody Screen Crossmatch POC Glucose 07/06/18 07/05/18 07/05/18 06:33 21:12 17:48 POC Glucose 193 H 205 H 168 H Medical Necessity - Tobacco Use Smoking Status: Never smoker Assessment/Plan All Active Problems (Last Reviewed 07/05/18 @ 15:00 by Cr Hendricks MD) GI (gastrointestinal bleed) (Acute) Pre-syncope (Acute) Acute cholecystitis (Acute) Lactic acid increased (Acute) Abdominal pain (Acute) lower GI bleed-hematochezia - Ascending colon cancer, multiple polyps Patient has normal upper endoscopy. COlonsocopy demonstrated a bulky tumor in the ascending colon with smaller polyps in the cecal base. Tumor was biopsied, inked and marker clip applied. One larger polyp at 35cm was removed with a good stalk and fantasma inked. 2 smaller rectal polyps were removed with a snare. Discussed the findings with the patient. HE would like to proceed with laparoscopic right hemicolectomy. WIll maintain on clear liquids. continue per op prep with neomycin and flagyl. Will check KUB, EKG, CXR and labs with CEA. Will ask medicine colleagues risk stratification given his prior MN and CABG. patient currently has no cardiac symptoms.
--- NOTE | 2018-07-06 08:44 | OP.ENDO_ITS ---
07/06/2018 Refugio Peterson [address] [place] [address] Re : Upper GI endoscopy procedure for Frank Mcgrath Dear Dr. Peterson This procedure was performed on Friday, July 06, 2018. My impressions and recommendations are as follows: Impressions : - Normal examined jejunum. - Normal examined duodenum. - Normal stomach. Biopsied. - Normal esophagus. Recommendations : - Await pathology results. - [facility]. - Continue present medications. My findings are described in the full procedure note, which is enclosed. If I can be of further assistance, please feel free to contact me at Doctor phone number(s): , Work: . Sincerely, Fan Otto MD 07/06/2018 8:44:25 AM This report has been signed electronically.
--- NOTE | 2018-07-06 08:50 | OP.ENDO_ITS ---
07/06/2018 Refugio Peterson [address] [place] [address] Re : Colonoscopy procedure for Frank Mcgrath Dear Dr. Peterson This procedure was performed on Friday, July 06, 2018. My impressions and recommendations are as follows: Impressions : - Hemorrhoids found on perianal exam. - Likely malignant tumor in the mid ascending colon. Biopsied. Tattooed. Clip (MR conditional) was placed. - One 17 mm polyp at 35 cm proximal to the anus, removed with a hot snare. Resected and retrieved. Injected. - Two small polyps at the recto-sigmoid colon, removed with a hot snare. Resected and retrieved. - The distal rectum and anal verge are normal on retroflexion view. Recommendations : - [facility]. - Clear liquid diet. - Surgical consultation for consideration of a right hemicolectomy tomorrow. - Repeat colonoscopy in 1 year for surveillance. - Continue present medications. - No aspirin, ibuprofen, naproxen, or other non-steroidal anti-inflammatory drugs for 3 days. My findings are described in the full procedure note, which is enclosed. If I can be of further assistance, please feel free to contact me at Doctor phone number(s): , Work: . Sincerely, Fan Otto MD 07/06/2018 8:49:26 AM This report has been signed electronically.
--- NOTE | 2018-07-06 09:38 | PCM.PN.HOSP ---
Patient Problems: Active and Suspected Problems (Last Reviewed 07/05/18 @ 15:00 by Cr Hendricks MD) GI (gastrointestinal bleed) (Acute) Pre-syncope (Acute) Subjective: Patient is a 67-year-old gentleman who presented with bleeding per rectum and presyncope. Consultation was placed to general surgery patient was seen by Dr. Otto who did perform endoscopic evaluation both upper and lower on the morning of 07/06/2018. Findings included a bulky tumor in the ascending colon with small polyp in the cecal base. Tumor was biopsied. Patient was also found to have a large polyp at 35 cm which was removed. Case discussed with that meant plan is for patient to undergo colon resection on 07/07/2018 pending cardiology evaluation Objective: GENERAL: cooperative HEENT: Atraumatic; moist oral mucosa EYES; Anicteric, Normal Conjunctiva NECK; supple, normal thyroid, no distended JVD. RESPIRATORY: Diminished to auscultation bilaterally, CARDIOVASCULAR: Regular S1 S2, no audible murmurs GI: soft, non-tender, normoactive bowel sounds, : No Renal angle tenderness; EXTREMITIES: No edema, no clubbing, no cyanosis. MUSCULOSKELETAL: No Joint Tenderness; no muscle waisting NEURO: Awake; no lateralizing signs. SKIN: No Rash PSYCH; Normal affect Vitals/I&O's: Vital Signs Temp Pulse Resp BP Pulse Ox 98.2 F 90 16 129/66 H 93 07/06/18 08:55 07/06/18 08:55 07/06/18 08:55 07/06/18 08:55 07/06/18 08:55 Oxygen Delivery Method Room Air Weight: 115.3 kg Body Mass Index (BMI) 37.5 Finger Stick Blood Glucose 391 Intake and Output for Last 24 Hours 07/04/18 07/05/18 07/06/18 23:59 23:59 23:59 Intake Total 1932 2597 / 4757 Output Total / Balance 1932 4855 / 4755 Microbiology Past 72 Hours 07/05/18 13:35 Stool Stool Occult Blood ([facility]) - Final Occult Blood Positive Laboratory Results 07/05/18 12:30: WBC 7.5, RBC 3.86 L, Hgb 10.2 L, Hct 33.0 L, MCV 85.5, MCH 26.4 L, MCHC 30.9 L, RDW 14.6, RDW Differential 46.0 H, Plt Count 203, MPV 11.2, Immature Gran % (Auto) 0.500, Neut % (Auto) 77.3 H, Lymph % (Auto) 10.6 L, [place] % (Auto) 10.0, Eos % (Auto) 1.1, Baso % (Auto) 0.5, Absolute Neuts (auto) 5.8, Absolute Lymphs (auto) 0.80 L, Total Counted Not Reportable 07/05/18 12:30: PT 13.7, INR 1.1, APTT 29.8 07/05/18 12:30: Sodium 135 L, Potassium 5.3 H, Chloride 104, Carbon Dioxide 24.0, Anion Gap 7, BUN 49 H, Creatinine 1.68 H, Estim Creat Clear Calc 42.08, Est GFR (MDRD) Af Amer 52 L, Est GFR (MDRD) Non-Af 43 L, BUN/Creatinine Ratio 29.2 H, Glucose 274 H, Calcium 8.4 L 07/05/18 12:30: Blood Type O POSITIVE, Antibody Screen NEGATIVE 07/05/18 12:30: Crossmatch See Detail 07/05/18 16:25: Troponin I 0.018 07/05/18 17:45: Hgb 9.8 L, Hct 30.8 L 07/05/18 17:48: POC Glucose 168 H 07/05/18 19:15: Troponin I 0.022 07/05/18 21:12: POC Glucose 205 H 07/05/18 22:30: Hgb 9.2 L, Hct 29.3 L 07/05/18 22:30: Troponin I 0.030 07/06/18 02:07: Hgb 10.2 L, Hct 32.1 L 07/06/18 06:00: WBC 6.0, RBC 3.40 L, Hgb 9.0 L, Hct 29.0 L, MCV 85.3, MCH 26.5 L, MCHC 31.0 L, RDW 14.5, RDW Differential 43.2, Plt Count 181, MPV 11.9, Immature Gran % (Auto) 1.000 H, Neut % (Auto) 69.5, Lymph % (Auto) 10.8 L, [place] % (Auto) 17.4 H, Eos % (Auto) 0.8, Baso % (Auto) 0.5, Absolute Neuts (auto) 4.2, Absolute Lymphs (auto) 0.65 L, Total Counted Not Reportable 07/06/18 06:00: Sodium 138, Potassium 4.8, Chloride 109 H, Carbon Dioxide 24.0, Anion Gap 5, BUN 33 H, Creatinine 1.30, Estim Creat Clear Calc 54.38, Est GFR (MDRD) Af Amer 70, Est GFR (MDRD) Non-Af 58 L, BUN/Creatinine Ratio 25.4 H, Glucose 190 H, Calcium 7.9 L, Magnesium 2.0 07/06/18 06:33: POC Glucose 193 H 07/06/18 08:52: Carcinoembryonic Ag Pending Current Medications Acetaminophen (Tylenol) 650 mg PO Q6H PRN PRN PRN Reason: Mild Pain (1-3)/Temp > 100.7 F Al Hydroxide/Mg Hydroxide (Mylanta Ii) 30 ml PO Q6H PRN PRN PRN Reason: Gastric Burning Albuterol Sulfate (Ventolin Aerosols) 2.5 mg INHALATION Q2H PRN PRN PRN Reason: Shortness of Breath/Wheezing Dextrose (D50w Syringe) 0 gm IV X1 PRN; Protocol PRN Reason: Hypoglycemia Glucagon () 1 mg IM .X1 PRN PRN Reason: Hypoglycemia Guaifenesin (Robitussin) 20 ml PO Q4H PRN PRN PRN Reason: COUGH Pantoprazole Sodium 80 mg/ (Sodium Chloride) 100 mls @ 10 mls/hr CONT INF Q10H [facility] Last Admin: 07/06/18 01:59 Dose: 10 mls/hr Sodium Chloride () 1,000 mls @ 100 mls/hr IV .Q10H [facility] Last Admin: 07/06/18 01:59 Dose: 100 mls/hr Insulin Human Lispro (Humalog Kwikpen (Bkc)) 0 unit SQ ACHS [facility]; Protocol Last Admin: 07/06/18 06:34 Dose: Not Given Magnesium Hydroxide (Milk Of Magnesia) 30 ml PO DAILY PRN PRN PRN Reason: Constipation Melatonin (Melatonin) 3 mg PO QHS PRN PRN PRN Reason: INSOMNIA Metronidazole (Flagyl) 1,000 mg PO 1300,1400,2300 [facility] Stop: 07/06/18 23:01 Neomycin Sulfate (Neomycin) 1,000 mg PO 1300,1400,2300 [facility] Stop: 07/06/18 23:01 Ondansetron HCl (Zofran) 4 mg IV Q8H PRN PRN PRN Reason: NAUSEA/VOMITING Oxycodone HCl (Oxyir) 10 mg PO Q4H PRN PRN PRN Reason: Moderate Pain (4-6/10) Pravastatin Sodium (Pravachol) 80 mg PO QHS [facility] Last Admin: 07/05/18 21:16 Dose: 80 mg Promethazine HCl (Phenergan) 25 mg IM Q6H PRN PRN PRN Reason: Breakthrough nausea/vomiting Sodium Chloride () 5 - 15 ml IV UD PRN PRN Reason: SALINE FLUSH Medical Necessity - Tobacco Use Smoking Status: Never smoker Assessment/Plan All Active Problems (Last Reviewed 07/05/18 @ 15:00 by Cr Hendricks MD) GI (gastrointestinal bleed) (Acute) Pre-syncope (Acute) Acute cholecystitis (Acute) Lactic acid increased (Acute) Abdominal pain (Acute) Patient is a 67-year-old gentleman who presented with bleeding per rectum and presyncope. Consultation was placed to general surgery patient was seen by Dr. Otto who did perform endoscopic evaluation both upper and lower on the morning of 07/06/2018. Findings included a bulky tumor in the ascending colon with small polyp in the cecal base. Tumor was biopsied. Patient was also found to have a large polyp at 35 cm which was removed. 1. Acute Lower GI bleed: Patient has been admitted to monitored bed. Patient was typed and screened for 2 unit PRBC started and PPI consultation placed to Dr. Otto who did evaluate the patient in the emergency department; Dr. Otto did perform endoscopic evaluation both upper and lower on the morning of 07/06/2018. Findings included a bulky tumor in the ascending colon with small polyp in the cecal base. Tumor was biopsied. Patient was also found to have a large polyp at 35 cm which was removed. Patient undergo colonic resection pending cardiology evaluation consultation subsequently placed with Dr. Corado. Echo ordered as part of his preop evaluation 2. Presyncope secondary to above patient has been admitted to monitored bed for subsequent management 3. Anemia secondary to acute on chronic blood loss from patient colonic mass management as discussed above. Patient has no required any blood transfusion 4. Coronary artery disease status post CABG; CABG X 3: BLANCO to LAD, SVG to PDA and SVG to Ramus 09/29/2015 @ [facility] 5. Essential hypertension held patient antihypertensive medication with patient having experienced presyncope 6. Dyslipidemia-patient is on statin therapy, continued at home dose 7. Diabetes mellitus type II: Controlled, patient's oral hypoglycemics held. Placed on Accu-Cheks a.c. and at bedtime and covered with sliding scale insulin 8. Obesity with BMI of 37.5 weight loss advised 9. DVT prophylaxis bilateral SCDs Code Visit Inpatient E&M: 19467 Subs Hosp L3
--- NOTE | 2018-07-06 09:45 | ECHOCS_ITS ---
Reason For Study: CAD- CABG Procedure This was a 2D Doppler, Color Flow transthoracic echocardiogram. The exam was of adequate technical quality. Exam performed portable in patient room. Left Ventricle Normal LV size. Segmental dysfunction with preserved ejection fraction (see wall motion). The estimated ejection fraction is 65 %. There is evidence of diastolic dysfunction. Infero-Basal: Hypokinetic. Mid-Inferior: Mildly hypokinetic. Inferior [place] : Hypokinetic. Right Ventricle Normal RV size. Normal systolic function. Atria The left atrium is mildly enlarged. Normal right atrium. Hypermobile atrial septum. Color flow doppler cannot exclude a small PFO vs. ASD. Mitral Valve There is no mitral annular calcification. Normal mitral valve. Trivial mitral valve insufficiency. Tricuspid Valve Normal tricuspid valve. Trivial tricuspid valve insufficiency. Right ventricular systolic pressure estimated to be 32 mmHg. Aortic Valve Trisinus/trileaflet aortic valve. Mild diffuse aortic valve thickening. Mild diffuse aortic valve calcification. Mild aortic stenosis. Pulmonic Valve The pulmonic valve is not well visualized. Mild (1+) pulmonic valve insufficiency. Great Vessels Normal sized aortic root. Pericardium/Pleural No pericardial effusion. MMode/2D Measurements & Calculations LVIDd: 3.8 cm IVSd: 1.5 cm LVOT diam: 2.1 cm LVIDs: 2.5 cm LVPWd: 1.5 cm LVOT area: 3.5 cm2 FS: 34.7 % Ao root diam: 3.5 cm LAV(MOD-bp): 80.7 ml LA A4 area: 23.9 cm2 LAV(MOD-bp) Indexed: 35.3 ml/m2 LAV(MOD-sp2): 86.6 ml LAV(MOD-sp4): 72.7 ml LA dimension(2D): 4.6 cm RA A4 area: 21.0 cm2 Doppler Measurements & Calculations MV E max rashid: 99.7 cm/sec Lat Peak E' Rashid: 7.2 cm/sec Med Peak E' Rashid: 4.9 cm/sec MV A max rashid: 107.2 cm/sec E/E' lat: 13.8 E/E' med: 20.3 MV E/A: 0.93 Ao V2 max: 291.3 cm/sec LV V1 max: 162.7 cm/sec SV(LVOT): 110.3 ml Ao max P.0 mmHg LV V1 max P.6 mmHg Ao V2 mean: 210.8 cm/sec LV V1 mean P.3 mmHg Ao mean P.7 mmHg LV V1 mean: 119.5 cm/sec Ao V2 VTI: 52.9 cm LV V1 VTI: 31.7 cm KI(I,D): 2.1 cm2 KI(V,D): 1.9 cm2 PA V2 max: 116.5 cm/sec TR max rashid: 267.0 cm/sec TR max P.7 mmHg Interpretation Summary Segmental dysfunction with preserved ejection fraction (see wall motion). The estimated ejection fraction is 65 %. The left atrium is mildly enlarged. Trivial mitral valve insufficiency. Trivial tricuspid valve insufficiency. Mild aortic stenosis. Mild (1+) pulmonic valve insufficiency. Right ventricular systolic pressure estimated to be 32 mmHg. Color flow doppler cannot exclude a small PFO vs. ASD. Ordering Physician: Cr Hendricks Referring Physician: Refugio Peterson Performed By: Lamar Landeros RDCS, RVT
[2018-07-06 12:56] LABS: Bedside Glucose 191 mg/dL (70-110)
--- NOTE | 2018-07-06 13:15 | PCM.CONS.C ---
Problem List (1) CAD (coronary artery disease) Status: Chronic Qualifiers: Coronary Disease-Associated Artery/Lesion type: [place] artery [place] vs. transplanted heart: [place] heart (2) Hx of CABG Status: Chronic Comment: CABG X 3: BLANCO to LAD, SVG to PDA and SVG to Ramus 09/29/2015 @ [facility] per Dr. Milton (3) Aortic valve disease Status: Chronic (4) Hyperlipidemia Status: Chronic Qualifiers: Hyperlipidemia type: pure hypercholesterolemia Qualified Code(s): E78.00 - Pure hypercholesterolemia, unspecified; E78.0 - Pure hypercholesterolemia (5) Hypertension Status: Chronic Qualifiers: Hypertension type: essential hypertension Qualified Code(s): I10 - Essential (primary) hypertension (6) Diabetes mellitus, type II Status: Chronic (7) GI (gastrointestinal bleed) Status: Acute (8) Pre-operative cardiovascular examination Status: Acute Reason for Consult Date of Consultation: 07/06/18 History of Present Illness: The patient is a 67 year old white male with a past medical history of hyperlipidemia, hypertension, CAD, CABG, aortic valve disorder/stenosis, superimposed upon diabetes mellitus, who now presents for evaluation of gastrointestinal bleeding with subsequent colonoscopy finding and ascending colonic mass concerning for malignancy who is pending upcoming general surgery. The patient states that since his last outpatient cardiovascular visit he has noted no ongoing chest discomfort or worsening shortness of breath or dyspnea. There is been no episodes of orthopnea, PND, or peripheral pitting edema. There has been no near syncope or syncope other than that related to his current presentation. He states that he was in his usual state of health until yesterday. Yesterday he had abdominal discomfort. He was having a bowel movement. He noted his bowel movement appeared to be somewhat red. He states later on he had recurrent abdominal discomfort and a recurrent bowel movement. At that time he stated that he did not feel well, he felt somewhat warm and clammy, and subsequently found himself partially on the commode and partially propping himself up from the floor. He states that he subsequently noted that the commode was full of blood. He subsequently had his family bring him to the hospital for further evaluation. He has since then undergone evaluation by colonoscopy and found to have an a sending colonic mass lesion concerning for malignancy. He is scheduled for general surgery tomorrow. From a cardiac standpoint he had a troponin I level performed which was negative. He had an ECG that demonstrated sinus rhythm with nonspecific ST and T wave abnormality. He has been monitored and his remained in sinus rhythm. [] Past Medical History Allergies/Adverse Reactions: Allergies No Known Allergies Allergy (Verified 07/05/18 12:14) Home Medications: Ambulatory Orders Medication Instructions Recorded Amlodipine Besylate 10 mg PO DAILY 08/30/15 Garlic 2,000 mg PO DAILY 08/30/15 [place]-3 Fatty Acids/Fish Oil 2 ea PO BID 08/30/15 [[place] 3 1,000 mg Softgel] Aspirin [Aspirin, Baby] 81 mg PO DAILY@0800 09/23/15 Multivitamin [Daily Multiple 1 ea PO DAILY 09/23/15 Vitamin] Pravastatin [Pravachol] 80 mg PO QHS 11/03/15 cinnamon bark 500 mg capsule 1,000 mg PO BID ea 03/22/17 hydrochlorothiazide 25 mg tablet 25 mg PO QDAY 04/04/17 metformin 1,000 mg tablet 1,000 mg PO BID 04/04/17 lisinopril 40 mg tablet 40 mg PO DAILY 04/04/18 Past Medical History (Chronic Problems): Chronic Problems (Last Reviewed 07/05/18 @ 15:00 by Cr Hendricks MD) CAD (coronary artery disease) (Chronic) Aortic valve disease (Chronic) Carotid artery stenosis (Chronic) per Carotid doppler done10/01/15 prior to CABG @ [facility]. Right common carotid 50-69% History of left heart catheterization (Chronic) 09/26/2015 @ [facility]>tsfer to [facility] for CABG History of non-ST elevation myocardial infarction (NSTEMI) (Chronic) Hyperlipidemia (Chronic) Obstructive sleep apnea (Chronic) Diabetes mellitus, type II (Chronic) Hypertension (Chronic) Hx of CABG (Chronic) CABG X 3: BLANCO to LAD, SVG to PDA and SVG to Ramus 09/29/2015 @ [facility] per Dr. Milton Atherosclerotic heart disease of [place] coronary artery without angina pectoris (Chronic) CABG X 3: BLANCO to LAD, SVG to PDA and SVG to Ramus 09/29/2015 @ [facility] per Dr. Milton Obesity (BMI 30-39.9) (Chronic) Surgical History: coronary bypass surgery, - - Right thoracentesis for pleural effusion, Drain tube bile duct 08/24. - *Family History Maternal Family History: Family History (Last Reviewed 07/05/18 @ 15:00 by Cr Hendricks MD) Mother CAD (coronary artery disease) Hypertension Father Colon cancer Sister Parkinson's disease History Items: Diabetes Paternal Family History: Family History (Last Reviewed 07/05/18 @ 15:00 by Cr Hendricks MD) Mother CAD (coronary artery disease) Hypertension Father Colon cancer Sister Parkinson's disease History Items: Heart Disease Smoking Status: Never smoker Alcohol: None Drugs: None Review of Systems - Review of Systems General: Denies: Fever, Night Sweats, Fatigue Cardiovascular: Denies: Chest Discomfort, Shortness of Breath, Orthopnea, PND, Peripheral Edema, Palpitations, Lightheadedness, Dizziness, Near Syncope, Syncope Respiratory: Denies: Cough, Sputum Production, Hemoptysis Gastrointestinal: Reports: Abdominal Discomfort, Hematochezia. Denies: Hematemesis, Melena Genitourinary: Denies: Dysuria, Hematuria Skin: Denies: Rash Subjectve: This is an overweight 59-year-old white male who appears resting comfortably at the moment in no acute distress. Objective: Vital Signs Temp Pulse Resp BP Pulse Ox 99.2 F H 90 17 149/63 H 94 07/06/18 10:40 07/06/18 10:40 07/06/18 10:40 07/06/18 10:40 07/06/18 10:40 Oxygen Delivery Method Room Air Weight: 254 lb 3.088 oz Body Mass Index (BMI) 37.5 Finger Stick Blood Glucose 391 Intake and Output for Last 24 Hours 07/04/18 07/05/18 07/06/18 23:59 23:59 23:59 Intake Total 1932 5753 / 4757 Output Total / Balance 1932 7663 / 4755 General: Awake, Alert, Oriented x 3, Cooperative, No Acute Distress HEENT: Atraumatic, Normocephalic, PERRL, EOMI Oral: Moist Mucosa Neck: Supple, Good ROM, No JVD Lungs: Clear to auscultation Cardiovascular: Regular Rhythm, Normal S1, Normal S2 Murmur Murmur: Grade 3/6, Harsh, Mid Systolic, LLSB, LVOT, Sternal Notch Vascular: No Carotid Bruits Abdomen: Bowel Sounds Present, Soft, Non Tender Extremities: No edema Neurological: No Focal Motor or Sensory Deficit Psych/Mental Status: Appropriate 07/05/18 12:30: Sodium 135 L, Potassium 5.3 H, Chloride 104, Carbon Dioxide 24.0, Anion Gap 7, BUN 49 H, Creatinine 1.68 H, Est GFR (MDRD) Af Amer 52 L, Est GFR (MDRD) Non-Af 43 L, BUN/Creatinine Ratio 29.2 H, Glucose 274 H, Calcium 8.4 L 07/05/18 16:25: Troponin I 0.018 07/05/18 17:45: Hgb 9.8 L, Hct 30.8 L 07/05/18 19:15: Troponin I 0.022 07/05/18 22:30: Hgb 9.2 L, Hct 29.3 L 07/05/18 22:30: Troponin I 0.030 07/06/18 02:07: Hgb 10.2 L, Hct 32.1 L 07/06/18 06:00: WBC 6.0, RBC 3.40 L, Hgb 9.0 L, Hct 29.0 L, MCV 85.3, MCH 26.5 L, MCHC 31.0 L, RDW 14.5, RDW Differential 43.2, Plt Count 181, MPV 11.9, Immature Gran % (Auto) 1.000 H, Neut % (Auto) 69.5, Lymph % (Auto) 10.8 L, [place] % (Auto) 17.4 H, Eos % (Auto) 0.8, Baso % (Auto) 0.5, Absolute Neuts (auto) 4.2, Total Counted Not Reportable 07/06/18 06:00: Sodium 138, Potassium 4.8, Chloride 109 H, Carbon Dioxide 24.0, Anion Gap 5, BUN 33 H, Creatinine 1.30, Est GFR (MDRD) Af Amer 70, Est GFR (MDRD) Non-Af 58 L, BUN/Creatinine Ratio 25.4 H, Glucose 190 H, Calcium 7.9 L, Magnesium 2.0 Rhythm: Sinus rhythm EKG: As noted above ECHO: 09-27-15: [facility]: Left ventricle considered normal with an LVEF of 60%; moderate concentric LVH mild left atrial enlargement; mild MR; aortic valve sclerosis/mild aortic valve stenosis Stress Test: 02-01-16: Exercise tolerance test/nuclear imaging study: Considered negative for myocardial perfusion changes indicative of stress-induced myocardial ischemia with a gated LVEF of 60% Cardiac Cath: 09-26-15: Left ventricle reported as normal with an LVEF of 65%; left main coronary artery with distal 20% stenosis; LAD reporting with proximal 80% stenosis; LCx reported as ectatic and aneurysmal with a mid 80% stenosis and a third OM branch with 80% stenosis; RCA reported as occluded CT Surgery: 09-29-15: [facility]: BLANCO to the LAD; SVG to the intermediate ramus; SVG to the PDA Assessment/Plan 1. CAD status post CABG The patient has history of CAD. He is undergone noninvasive and invasive evaluation as noted above. This led to CABG as noted above. The present time he describes no acute cardiovascular symptoms with respect to his underlying coronary status. His initial troponin I level is negative. His ECG demonstrated no acute ECG changes. He should continue medical management as deemed appropriate at this time. Ideally he would be on medical therapy such as aspirin although that is on hold secondary to his gastrointestinal bleeding process. He can have nitrates as needed. He apparently has not been on beta-janet therapy in the past. This can be introduced as needed. He should continue lipid-lowering therapy. 2. Aortic valve disorder/stenosis The patient does have an underlying cardiac murmur. He does have a history of aortic valve sclerosis/stenosis as previously noted. At the present time he will continue to be followed. A follow-up echocardiogram will be requested to further assess his aortic valve anatomy and physiology. 3. Hyperlipidemia The patient will continue lipid-lowering therapy. 4. Hypertension The patient's blood pressure can be followed. His medications which he has been on, which has included GISELA inhibitors and dihydropyridine agents, can be adjusted as deemed appropriate. 5. Diabetes mellitus He will continue under the care of internal medicine. 6. Gastrointestinal bleeding process He has been found to have hematochezia. He has been found to have a colonic mass in the ascending colon. The concern is malignancy. He is tentatively scheduled for general surgery tomorrow. 7. Preoperative cardiovascular evaluation At the present time he appears to be symptomatically and hemodynamically stable. He will continue to be monitored. He will continue medical therapy with adjustment as needed. He is been asked to have further evaluation with a transthoracic echocardiogram to reassess his left ventricular wall motion systolic function and his aortic valve anatomy and physiology to help guide future evaluation and care. However, it does not appear that there is a cardiovascular issue at this time that would prohibit him to proceeding with his much-needed general surgical procedure. He should have close monitoring of his cardiac rate rhythm and blood pressure during and following his procedure. He should continue with cardiac monitoring post procedure. Hopefully based upon what appears to be his stable cardiovascular course, with close monitoring, etc. he has risks for adverse cardiovascular events for noncardiac surgery will be at a minimum. Comment: The patient's case was discussed and reviewed with the patient and Dr. Hendricks. This note was generated with [employer] dictation software. It may contain incorrect words, spelling, and punctuation that were not noted in checking the note before signing.
--- NOTE | 2018-07-06 13:20 | CON.PCM_ITS ---
Problem List (1) CAD (coronary artery disease) Status: Chronic Qualifiers: Coronary Disease-Associated Artery/Lesion type: holy cross artery Platinum vs. transplanted heart: holy cross heart (2) Hx of CABG Status: Chronic Comment: CABG X 3: BLANCO to LAD, SVG to PDA and SVG to Ramus 09/29/2015 @ [facility] per Dr. Milton (3) Aortic valve disease Status: Chronic (4) Hyperlipidemia Status: Chronic Qualifiers: Hyperlipidemia type: pure hypercholesterolemia Qualified Code(s): E78.00 - Pure hypercholesterolemia, unspecified; E78.0 - Pure hypercholesterolemia (5) Hypertension Status: Chronic Qualifiers: Hypertension type: essential hypertension Qualified Code(s): I10 - Essential (primary) hypertension (6) Diabetes mellitus, type II Status: Chronic (7) GI (gastrointestinal bleed) Status: Acute (8) Pre-operative cardiovascular examination Status: Acute Reason for Consult Date of Consultation: 07/06/18 History of Present Illness: The patient is a 67 year old white male with a past medical history of hyperlipidemia, hypertension, CAD, CABG, aortic valve disorder/stenosis, superimposed upon diabetes mellitus, who now presents for evaluation of gastrointestinal bleeding with subsequent colonoscopy finding and ascending colonic mass concerning for malignancy who is pending upcoming general surgery. The patient states that since his last outpatient cardiovascular visit he has noted no ongoing chest discomfort or worsening shortness of breath or dyspnea. There is been no episodes of orthopnea, PND, or peripheral pitting edema. There has been no near syncope or syncope other than that related to his current presentation. He states that he was in his usual state of health until yesterday. Yesterday he had abdominal discomfort. He was having a bowel movement. He noted his bowel movement appeared to be somewhat red. He states later on he had recurrent abdominal discomfort and a recurrent bowel movement. At that time he stated that he did not feel well, he felt somewhat warm and clammy, and subsequently found himself partially on the commode and partially propping himself up from the floor. He states that he subsequently noted that the commode was full of blood. He subsequently had his family bring him to the hospital for further evaluation. He has since then undergone evaluation by colonoscopy and found to have an a sending colonic mass lesion concerning for malignancy. He is scheduled for general surgery tomorrow. From a cardiac standpoint he had a troponin I level performed which was negative. He had an ECG that demonstrated sinus rhythm with nonspecific ST and T wave abnormality. He has been monitored and his remained in sinus rhythm. [] Past Medical History Allergies/Adverse Reactions: Allergies No Known Allergies Allergy (Verified 07/05/18 12:14) Home Medications: Ambulatory Orders Medication Instructions Recorded Amlodipine Besylate 10 mg PO DAILY 08/30/15 Garlic 2,000 mg PO DAILY 08/30/15 [place]-3 Fatty Acids/Fish Oil 2 ea PO BID 08/30/15 [[place] 3 1,000 mg Softgel] Aspirin [Aspirin, Baby] 81 mg PO DAILY@0800 09/23/15 Multivitamin [Daily Multiple 1 ea PO DAILY 09/23/15 Vitamin] Pravastatin [Pravachol] 80 mg PO QHS 11/03/15 cinnamon bark 500 mg capsule 1,000 mg PO BID ea 03/22/17 hydrochlorothiazide 25 mg tablet 25 mg PO QDAY 04/04/17 metformin 1,000 mg tablet 1,000 mg PO BID 04/04/17 lisinopril 40 mg tablet 40 mg PO DAILY 04/04/18 Past Medical History (Chronic Problems): Chronic Problems (Last Reviewed 07/05/18 @ 15:00 by Cr Hendricks MD) CAD (coronary artery disease) (Chronic) Aortic valve disease (Chronic) Carotid artery stenosis (Chronic) per Carotid doppler done10/01/15 prior to CABG @ [facility]. Right common carotid 50-69% History of left heart catheterization (Chronic) 09/26/2015 @ [facility]>tsfer to [facility] for CABG History of non-ST elevation myocardial infarction (NSTEMI) (Chronic) Hyperlipidemia (Chronic) Obstructive sleep apnea (Chronic) Diabetes mellitus, type II (Chronic) Hypertension (Chronic) Hx of CABG (Chronic) CABG X 3: BLANCO to LAD, SVG to PDA and SVG to Ramus 09/29/2015 @ [facility] per Dr. Milton Atherosclerotic heart disease of holy cross coronary artery without angina pectoris (Chronic) CABG X 3: BLANCO to LAD, SVG to PDA and SVG to Ramus 09/29/2015 @ [facility] per Dr. Milton Obesity (BMI 30-39.9) (Chronic) Surgical History: coronary bypass surgery, - - Right thoracentesis for pleural effusion, Drain tube bile duct 08/24. - *Family History Maternal Family History: Family History (Last Reviewed 07/05/18 @ 15:00 by Cr Hendricks MD) Mother CAD (coronary artery disease) Hypertension Father Colon cancer Sister Parkinson's disease History Items: Diabetes Paternal Family History: Family History (Last Reviewed 07/05/18 @ 15:00 by Cr Hendricks MD) Mother CAD (coronary artery disease) Hypertension Father Colon cancer Sister Parkinson's disease History Items: Heart Disease Smoking Status: Never smoker Alcohol: None Drugs: None Review of Systems - Review of Systems General: Denies: Fever, Night Sweats, Fatigue Cardiovascular: Denies: Chest Discomfort, Shortness of Breath, Orthopnea, PND, Peripheral Edema, Palpitations, Lightheadedness, Dizziness, Near Syncope, Syncope Respiratory: Denies: Cough, Sputum Production, Hemoptysis Gastrointestinal: Reports: Abdominal Discomfort, Hematochezia. Denies: Hematemesis, Melena Genitourinary: Denies: Dysuria, Hematuria Skin: Denies: Rash Subjectve: This is an overweight 59-year-old white male who appears resting comfortably at the moment in no acute distress. Objective: Vital Signs Temp Pulse Resp BP Pulse Ox 99.2 F H 90 17 149/63 H 94 07/06/18 10:40 07/06/18 10:40 07/06/18 10:40 07/06/18 10:40 07/06/18 10:40 Oxygen Delivery Method Room Air Weight: 254 lb 3.088 oz Body Mass Index (BMI) 37.5 Finger Stick Blood Glucose 391 Intake and Output for Last 24 Hours 07/04/18 07/05/18 07/06/18 23:59 23:59 23:59 Intake Total 1932 5044 / 4757 Output Total / Balance 1932 9094 / 4755 General: Awake, Alert, Oriented x 3, Cooperative, No Acute Distress HEENT: Atraumatic, Normocephalic, PERRL, EOMI Oral: Moist Mucosa Neck: Supple, Good ROM, No JVD Lungs: Clear to auscultation Cardiovascular: Regular Rhythm, Normal S1, Normal S2 Murmur Murmur: Grade 3/6, Harsh, Mid Systolic, LLSB, LVOT, Sternal Notch Vascular: No Carotid Bruits Abdomen: Bowel Sounds Present, Soft, Non Tender Extremities: No edema Neurological: No Focal Motor or Sensory Deficit Psych/Mental Status: Appropriate 07/05/18 12:30: Sodium 135 L, Potassium 5.3 H, Chloride 104, Carbon Dioxide 24.0, Anion Gap 7, BUN 49 H, Creatinine 1.68 H, Est GFR (MDRD) Af Amer 52 L, Est GFR (MDRD) Non-Af 43 L, BUN/Creatinine Ratio 29.2 H, Glucose 274 H, Calcium 8.4 L 07/05/18 16:25: Troponin I 0.018 07/05/18 17:45: Hgb 9.8 L, Hct 30.8 L 07/05/18 19:15: Troponin I 0.022 07/05/18 22:30: Hgb 9.2 L, Hct 29.3 L 07/05/18 22:30: Troponin I 0.030 07/06/18 02:07: Hgb 10.2 L, Hct 32.1 L 07/06/18 06:00: WBC 6.0, RBC 3.40 L, Hgb 9.0 L, Hct 29.0 L, MCV 85.3, MCH 26.5 L , MCHC 31.0 L, RDW 14.5, RDW Differential 43.2, Plt Count 181, MPV 11.9, Immat ure Gran % (Auto) 1.000 H, Neut % (Auto) 69.5, Lymph % (Auto) 10.8 L, [place] % (Auto) 17.4 H, Eos % (Auto) 0.8, Baso % (Auto) 0.5, Absolute Neuts (auto) 4.2, Total Counted Not Reportable 07/06/18 06:00: Sodium 138, Potassium 4.8, Chloride 109 H, Carbon Dioxide 24.0, Anion Gap 5, BUN 33 H, Creatinine 1.30, Est GFR (MDRD) Af Amer 70, Est GFR (MDRD) Non-Af 58 L, BUN/Creatinine Ratio 25.4 H, Glucose 190 H, Calcium 7.9 L, Magnesium 2.0 Rhythm: Sinus rhythm EKG: As noted above ECHO: 09-27-15: [facility]: Left ventricle considered normal with an LVEF of 60%; moderate concentric LVH mild left atrial enlargement; mild MR; aortic valve sclerosis/mild aortic valve stenosis Stress Test: 02-01-16: Exercise tolerance test/nuclear imaging study: Considered negative for myocardial perfusion changes indicative of stress-induced myocardial ischemia with a gated LVEF of 60% Cardiac Cath: 09-26-15: Left ventricle reported as normal with an LVEF of 65%; left main coronary artery with distal 20% stenosis; LAD reporting with proximal 80% stenosis; LCx reported as ectatic and aneurysmal with a mid 80% stenosis and a third OM branch with 80% stenosis; RCA reported as occluded CT Surgery: 09-29-15: [facility]: BLANCO to the LAD; SVG to the intermediate ramus; SVG to the PDA Assessment/Plan 1. CAD status post CABG The patient has history of CAD. He is undergone noninvasive and invasive evaluation as noted above. This led to CABG as noted above. The present time he describes no acute cardiovascular symptoms with respect to his underlying coronary status. His initial troponin I level is negative. His ECG demonstrated no acute ECG changes. He should continue medical management as deemed appropriate at this time. Ideally he would be on medical therapy such as aspirin although that is on hold secondary to his gastrointestinal bleeding process. He can have nitrates as needed. He apparently has not been on beta-janet therapy in the past. This can be introduced as needed. He should continue lipid-lowering therapy. 2. Aortic valve disorder/stenosis The patient does have an underlying cardiac murmur. He does have a history of aortic valve sclerosis/stenosis as previously noted. At the present time he will continue to be followed. A follow-up echocardiogram will be requested to further assess his aortic valve anatomy and physiology. 3. Hyperlipidemia The patient will continue lipid-lowering therapy. 4. Hypertension The patient's blood pressure can be followed. His medications which he has been on, which has included GISELA inhibitors and dihydropyridine agents, can be adjusted as deemed appropriate. 5. Diabetes mellitus He will continue under the care of internal medicine. 6. Gastrointestinal bleeding process He has been found to have hematochezia. He has been found to have a colonic mass in the ascending colon. The concern is malignancy. He is tentatively scheduled for general surgery tomorrow. 7. Preoperative cardiovascular evaluation At the present time he appears to be symptomatically and hemodynamically stable. He will continue to be monitored. He will continue medical therapy with adjustment as needed. He is been asked to have further evaluation with a transthoracic echocardiogram to reassess his left ventricular wall motion sy stolic function and his aortic valve anatomy and physiology to help guide future evaluation and care. However, it does not appear that there is a cardiovascular issue at this time that would prohibit him to proceeding with his much-needed general surgical procedure. He should have close monitoring of his cardiac rate rhythm and blood pressure during and following his procedure. He should continue with cardiac monitoring post procedure. Hopefully based upon what appears to be his stable cardiovascular course, with close monitoring, etc. he has risks for adverse cardiovascular events for noncardiac surgery will be at a minimum. Comment: The patient's case was discussed and reviewed with the patient and Dr. Hendricks. This note was generated with [employer] dictation software. It may contain incorrect words, spelling, and punctuation that were not noted in checking the note before signing.
--- NOTE | 2018-07-06 14:20 | RAD_ITS ---
STUDY: X-RAY - ABDOMEN/PELVIS REASON FOR EXAM: Male, 67 years old. Colonoscopy this morning. Ascending colon cancer. TECHNIQUE: Single AP view of the abdomen / pelvis. COMPARISON: None. FINDINGS: Normal visualized lung bases. There is mild dilatation of both large and small bowel with air seen to the level of the rectosigmoid. There is an endoscopic clip at the distal aspect of the ascending colon. There is no demonstrated free abdominal air. The visualized liver, spleen and kidneys are grossly normal in size and morphology. Normal soft tissue structures. Normal visualized osseous structures. RAD/Abdomen Single View IMPRESSION: No acute abnormality. Electronically Signed: Red Simon MD at 14:42 EDT , Service support ,
[2018-07-06] MEDS: metroNIDAZOLE 500 MG Tablet 1000 MG PO ×3 (15:01→22:02)
[2018-07-06] MEDS: 0.9% NaCl Peripheral Flush Adult/Peds IV (15:04)
[2018-07-06 16:41] LABS: Bedside Glucose 180 mg/dL (70-110)
[2018-07-06] MEDS: Pravastatin 80 MG Tablet PO (21:45)
[2018-07-06] MEDS: Insulin Lispro 100 UNIT/ML INSULN.PEN SQ (21:53)
[2018-07-06 21:55] LABS: Bedside Glucose 230 mg/dL (70-110)
[2018-07-06] MEDS: Lisinopril 10 MG Tablet PO (22:05)
[2018-07-07] VITALS (23 sets, daily range): BP systolic 141–227; BP diastolic 43–107; PULSE 80–108; RESP 12–25; TEMP 36.9–37.7; O2SAT 92–100; BMI 37.5
--- NOTE | 2018-07-07 | COL._PTH ---
PATIENT: JESUS ALBERTO BUSTILLO Jr. LOC: [facility] U#:[id number] AGE/SX: 67/M ROOM: [facility] RE07/05/[address]: Dr. Jayden Vilchis DO : 1950 BED: 1 DIS: 07/10/2018 SPEC #: [id number] RECD: 07/07/18 12:12 STATUS: IMMANUEL REQ #: [id number] WALESKA: 07/07/18 00:[address]: Fan Otto DEPT: SURGICAL PATHOLOGY RECD BY: Bin Luciano ENTERED: 07/08/18 12:13 SP TYPE: COLON OTHR DR: MD Dr. Cr Mcintyre MD Dr. Eric Jopperi, DO Dr. Mark Stutzman, DO Dr. Paul Moodispaw, MD Dr. Richard Guttman, MD Tissues: A - Colon, NOS B - HERNIA Procedures: Surgery Specimen Level II Surgery Specimen Level Comments: @ Ordering doctor for SUII edited from to DR.RGUTTM Feldman by CONCHA at 07/08/18 1557 @ Ordering doctor for SUVI edited from to DR.RGUTTM Feldman by CONCHA at 07/08/18 1555 @ Submitting doctor edited from to @ by CONCHA at 07/08/18 1555 HEADER OPERATION: Colonoscopy, [place] PRE-OP DIAGNOSIS: GI bleed TISSUE SUBMITTED: A - Right colon segment and omentum, B - Hernia sac MICROSCOPIC DIAGNOSIS A. Right colon segment and omentum: Ulcerated mass 3 cm distal to ileocecal valve: Invasive adenocarcinoma, moderately to poorly differentiated (4 x 3 x 0.3 cm) involving muscularis propria. Terminal ileum, serosal surface, mesenteric margin and distal colectomy margin are free of tumor. Large polypoid mass, 8 cm distal to ileocecal valve: Tubulovillous adenoma (6 x 4 x 1 cm). Additional polyps: Tubulovillous adenoma (1). Tubular adenomas (4). Appendix: Mild lymphoid hyperplasia, negative for tumor. B. Hernia sac: Mesothelium-lined fibroadipose tissue, compatible with hernia sac. CE:paloma 07/10/18 COLON CANCER SUMMARY: Specimen - terminal ileum, cecum, appendix, ascending colon, transverse colon Procedure - right hemicolectomy Specimen length - 32.5 cm Tumor site - cecum Tumor size - 4 x 3 x 0.3 cm Macroscopic tumor perforation - not identified Histologic type - adenocarcinoma Histologic grade - predominantly moderately differentiated and focally poorly differentiated. Histologic features suggestive of Microsatellite Instability: Intratumoral lymphocytic response - mild Peritumoral lymphocytic response (Crohn-like) - mild Tumor subtype and differentiation: High histologic grade (focal) Microscopic tumor extension - tumor invades muscularis propria Margins: Proximal margin - uninvolved Distal margin - uninvolved Mesenteric margin - uninvolved Lymph-Vascular invasion - not identified Perineural invasion - not identified Tumor deposits - present (1) Type of polyp in which invasive carcinoma arose - none identified Primary tumor - tumor invades muscularis propria Regional lymph nodes - no regional lymph node metastasis Number of lymph nodes examined - 18 Number of lymph nodes involved - 0 Distant metastasis - not applicable Additional pathologic findings - tubulovillous adenomas and tubular adenomas Ancillary studies: Immunohistochemistry studies for mismatch repair proteins are pending and will be reported separately ([id number]). PATHOLOGIC STAGE: pT2 pN0 M0 The above summary is in compliance with [employer] (CAP) Cancer Protocols Checklist and [place] [employer] Committee on Cancer (AJCC), Staging Manual, 8th Ed. MICROSCOPIC DESCRIPTION Slides are reviewed. GROSS DESCRIPTION A - Received in fixative is one container labeled with the patient's name and designated right colon segment and omentum. The specimen consists of a previously opened right hemicolectomy specimen consisting of cecum and ascending colon, portion of transverse colon, small segment of small intestine and appendix. The cecum, ascending colon and transverse colon measures 24 cm in length. The segment of small intestine measures 8.5 cm in length and the appendix measures 6 cm in length and 0.5 cm in diameter. 3 cm away from the ileocecal valve there is a gooden, ulcerated, indurated mass measuring 4 x 3 x 0.3 cm. Sections of this mass reveal full thickness involvement of the bowel wall. A second large polypoid mass is also noted 5 cm distal to the ulcerated mass and 8 cm away from the ileocecal valve and 11 cm away from the distal resection margin and this second mass measures 6 x 4 x 1 cm. Multiple smaller polyps are also noted proximal and distal to these masses and measure 0.3 to 0.7 cm in greatest dimension. A metallic clip is noted slightly distal to the second mass described. Both resection margins are stapled. The omentum measures 34 x 13 x 3 cm. The lumen contains small amount of fecal material. Sections of omentum do not reveal any mass lesion. The pericolonic adipose tissue is fixed in lymph node revealing solution. Sections will be submitted after overnight fixation. / SJ:paloma 07/08/18 A staple line is also noted in the container measuring 5 x 0.5 x 0.5 cm. Sections of appendix reveal pinpoint lumen without any mass lesion. A total of five smaller polyps are identified. Sections of the larger polypoid mass closer to the clip show predominantly mucosa in location. Sections of pericolonic adipose tissue reveal multiple lymph nodes. The largest lymph node measures 1 cm. Retail Training Manager sections are submitted as follows: 1 - staple line, 2 - appendix, 3 - proximal and distal resection margins, 4 - three smaller polyps (one of the polyps is bisected and inked black), 5 - two polyps, bisected (one polyp is noted close to the ulcerated mass which is inked black and another polyp is inked blue), 6-10 - ulcerated mass, entirely submitted, 11-16 - larger polypoid mass close to the clip, 17 - ileocecal valve, small intestine, large intestine patient financial representative sections, 18 - omentum and one bisected lymph node, 19 - multiple lymph nodes, 20 - one bisected lymph node, 21 - one bisected lymph node, 22 - one serially sectioned lymph node / SJ:paloma 07/09/18 B - Received in fixative is one container labeled with the patient's name and designated hernia sac. The specimen consists of multiple variable sized pieces of gooden-pink soft tissue that in aggregate measure 5 x 5 x 0.8 cm. No mass lesion is identified. Retail Training Manager sections are submitted in one cassette. / SJ:paloma 07/08/18 TC:0 CPT: 77836, 37703
--- NOTE | 2018-07-07 | IMM_PTH ---
PATIENT: JESUS ALBERTO BUSTILLO Jr. LOC: [facility] U#:[id number] AGE/SX: 67/M ROOM: [facility] RE07/05/[address]: Dr. Jayden Vilchis DO : 1950 BED: 1 DIS: 07/10/2018 SPEC #: [id number] RECD: 07/10/18 14:02 STATUS: IMMANUEL REQ #: [id number] WALESKA: 07/07/18 00:[address]: Fan Otto DEPT: IMMUNOHISTOCHEMISTRY RECD BY: Kay Llanos ENTERED: 07/10/18 14:06 SP TYPE: IMMUNO OTHR DR: MD Dr. Cr Mcintyre MD Dr. Eric Jopperi, DO Dr. Mark Stutzman, DO Dr. Paul Moodispaw, MD Tissues: Colon, NOS Procedures: MSH2 (add) MLH-1 (add) MSH6 (add) Anti-PMS2 (add) [place]-2 (add) P53 (add) KI-67 (initial) PHYSICIAN & [place] [id number] SPECIMEN INFORMATION: Tissue Source: A - Right colon segment and omentum Clinical Info: GI bleed Specimen Number: [id number] A10 CPT code: 35007, 74500 x6 METHODOLOGY: Deparaffinized sections of prefer/formalin-fixed tissue or PAP/DQ stained slides are incubated with monoclonal/polyclonal antibodies/oligonucleotide probes. Localization is made via biotin free immunoperoxidase method. Appropriate controls are performed and reacted as expected. Results on target cell population are indicated in the following table: RESULTS: ANTIBODY / CLONE RESULT Block A10 Ki-67 (30-9) positive, high P53 (DO-7) positive [place]-2 (SP21) positive MLH-1 (M1) positive MSH2 (25D12) positive MSH6 (44) positive PMS2 ([id number]) positive These tests were developed and their performance characteristics determined by [facility]. They may not have been cleared or approved by the U.S. Food and Drug Administration. The FDA has determined that such clearance or approval is not necessary. INTERPRETATION: A. Right colon segment and omentum: Invasive adenocarcinoma. Result of Microsatellite Instability Study: Negative (no loss of mismatch protein; no microsatellite instability detected). SJ:paloma 07/11/18
[2018-07-07 05:42] LABS: Absolute Lymphocyte Count 0.74 X10^3/ul (0.83-4.51); Basophil# 0.02 X10^3/uL; Basophil% 0.3 % (0-1); Hematocrit 27.3 % (40-54); Hemoglobin 8.4 g/dl (13.0-16.5); Lymphocyte # 0.74 X10^3/ul (4.0); Lymphocyte % 9.5 % (19-41); Mean Corp Hgb Conc 30.8 g/gl (32-36); Mean Corpuscular Volume 84.5 fL (80-94); Mean Platelet Vol. 11.4 fl (6.2-12.0); Monocyte# 1.02 X10^3/uL; Monocyte% 13.2 % (0-10); Neutrophil # 5.95 X10^3/uL (2.7-7.7); Neutrophil % 76.7 % (47-70); Platelet Count 166 K/mm3 (150-450); RBC Distribution Width CV 14.5 % (11.6-14.6); RBC Distribution Width SD 43.1 fl (35.1-43.9); Red Blood Count 3.23 M/mm3 (4.6-6.2); White Blood Count 7.8 K/mm3 (4.4-11.0)
[2018-07-07 05:46] LABS: POSITIVE COUNT NO; POSITIVE DIFFERENTIAL NO; POSITIVE MORPHOLOGY NO
[2018-07-07 06:09] LABS: ALB/GLOB Ratio 0.8 RATIO (0.9-2.4); AST(SGOT) 18 U/L (15-37); Alanine Aminotransfer ALT/SGPT 24 U/L (16-61); Albumin, Serum 2.7 g/dL (3.2-5.0); Alkaline Phosphatase 59 U/L (45-117); Anion Gap 6 (5-15); BUN 18 mg/dL (7-18); BUN/Creat Ratio 13.7 RATIO (10-20); Calcium,Total 7.7 mg/dL (8.5-10.1); Chloride 108 mmol/L (98-107); Creatinine, Serum 1.31 mg/dL (0.70-1.30); EST Glomerular Filtration Rate 58 mL/min (>60); Est Glom Filt Rate - Afr Amer 70 mL/min (>60); Estimated Creatinine Clearance 53.97 ml/min; Globulin 3.2 g/dL (2.2-4.2); Glucose 214 mg/dL (74-106); Potassium 4.3 mmol/L (3.5-5.1); Protein, Total 5.9 g/dL (6.4-8.2); Sodium Level 139 mmol/L (136-145)
[2018-07-07] MEDS: Insulin Lispro 100 UNIT/ML INSULN.PEN SQ ×2 (06:50→21:42)
[2018-07-07 06:55] LABS: Bedside Glucose 215 mg/dL (70-110)
--- NOTE | 2018-07-07 07:35 | PN.SURG_ITS ---
Patient Problems: Active and Suspected Problems (Last Updated 07/07/18 @ 07:28 by Fan Otto MD) GI (gastrointestinal bleed) (Acute) Pre-syncope (Acute) Pre-operative cardiovascular examination (Acute) S/P laparoscopic cholecystectomy (Acute) Hx laparoscopic cholecystectomy (Acute) Subjective: ready for surgery, does not wish to be transferred elsewhere - Physical Exam General: Alert, Oriented x3, Cooperative Lungs: Clear to auscultation, Normal air movement Cardiovascular: Regular rate, Murmur - aortic outflow mild consistent with aortic stenosis Abdomen: Bowel Sounds Present, Soft, Non Tender, Hernia - at supraumbilical incision Vital Signs Temp Pulse Resp BP Pulse Ox 98.8 F 102 H 16 165/75 H 94 07/07/18 04:00 07/07/18 04:10 07/07/18 04:00 07/07/18 04:00 07/07/18 04:00 Oxygen Flow Rate (L/min) 2 Oxygen Delivery Method Nasal Cannula Weight: 115.3 kg Body Mass Index (BMI) 37.5 Finger Stick Blood Glucose 391 Intake and Output for Last 24 Hours 07/05/18 07/06/18 07/07/18 23:59 23:59 23:59 Intake Total 1932 6373.0 / 6373.0 1657 / 1657 Output Total 2 / 2 Balance 1932 / 1932 6371.0 / 6371.0 1657 / 1657 Microbiology Past 72 Hours 07/05/18 13:35 Stool Occult Blood ([facility]) - Final Stool Occult Blood Positive Laboratory Tests Past 24 Hrs 07/06/18 07/06/18 07/06/18 06:00 06:00 08:52 WBC 6.0 RBC 3.40 L Hgb 9.0 L Hct 29.0 L MCV 85.3 MCH 26.5 L MCHC 31.0 L RDW 14.5 RDW Differential 43.2 Plt Count 181 MPV 11.9 Immature Gran % (Auto) 1.000 H Neut % (Auto) 69.5 Lymph % (Auto) 10.8 L [place] % (Auto) 17.4 H Eos % (Auto) 0.8 Baso % (Auto) 0.5 Absolute Neuts (auto) 4.2 Absolute Lymphs (auto) 0.65 L Total Counted Not Reportable Sodium 138 Potassium 4.8 Chloride 109 H Carbon Dioxide 24.0 Anion Gap 5 BUN 33 H Creatinine 1.30 Estim Creat Clear Calc 54.38 Est GFR (MDRD) Af Amer 70 Est GFR (MDRD) Non-Af 58 L BUN/Creatinine Ratio 25.4 H Glucose 190 H Calcium 7.9 L Magnesium 2.0 Total Bilirubin AST ALT Alkaline Phosphatase Total Protein Albumin Globulin Albumin/Globulin Ratio Carcinoembryonic Ag Pending 07/07/18 07/07/18 05:10 05:10 WBC 7.8 RBC 3.23 L Hgb 8.4 L Hct 27.3 L MCV 84.5 MCH 26.0 L MCHC 30.8 L RDW 14.5 RDW Differential 43.1 Plt Count 166 MPV 11.4 Immature Gran % (Auto) 0.300 Neut % (Auto) 76.7 H Lymph % (Auto) 9.5 L [place] % (Auto) 13.2 H Eos % (Auto) 0.0 Baso % (Auto) 0.3 Absolute Neuts (auto) 6.0 Absolute Lymphs (auto) 0.74 L Total Counted Not Reportable Sodium 139 Potassium 4.3 Chloride 108 H Carbon Dioxide 25.0 Anion Gap 6 BUN 18 Creatinine 1.31 H Estim Creat Clear Calc 53.97 Est GFR (MDRD) Af Amer 70 Est GFR (MDRD) Non-Af 58 L BUN/Creatinine Ratio 13.7 Glucose 214 H Calcium 7.7 L Magnesium Total Bilirubin 0.40 AST 18 ALT 24 Alkaline Phosphatase 59 Total Protein 5.9 L Albumin 2.7 L Globulin 3.2 Albumin/Globulin Ratio 0.8 L Carcinoembryonic Ag POC Glucose 07/07/18 07/06/18 07/06/18 06:45 21:47 16:10 POC Glucose 215 H 230 H 180 H 07/06/18 12:52 POC Glucose 191 H Medical Necessity - Tobacco Use Smoking Status: Never smoker Assessment/Plan All Active Problems (Last Updated 07/07/18 @ 07:28 by Fan Otto MD) Acute cholecystitis (Acute) Lactic acid increased (Acute) Abdominal pain (Acute) GI (gastrointestinal bleed) (Acute) Pre-syncope (Acute) Pre-operative cardiovascular examination (Acute) S/P laparoscopic cholecystectomy (Acute) Hx laparoscopic cholecystectomy (Acute) lower GI bleed-hematochezia - Ascending colon cancer, multiple polyps Patient has normal upper endoscopy. Colonsocopy demonstrated a bulky tumor in the ascending colon with smaller polyps in the cecal base. Tumor was biopsied, inked and marker clip applied. One larger polyp at 35cm was removed with a good stalk and fantasma inked. 2 smaller rectal polyps were removed with a snare. Discussed the findings with the patient. He would like to proceed with laparoscopic right hemicolectomy. Maintained on clear liquids. completed pre op prep with neomycin and flagyl. Will check KUB - demonstrates clip at hepatic flexure, EKG no acute changes, CXR and labs with CEA pending. appreciate note from Dr. Corado for his risk stratification given his prior TX and CABG. patient currently has no cardiac symptoms. recall the patient had presented to [facility] with acute cholecystitis in 2016. Did not tolerate attempt at percutaneous cholecystostomy tube and had ST segment changes on induction for surgery. transferred to [place] where underwent percutaneous cholecystostomy tube. Patient then failed stress test and cardiac catheterization resulting in coronary bypass grafting on September 29, 2015. 4 months later he underwent laparoscopic cholecystectomy. Patient's aortic stenosis was associated mild on echocardiogram at that time. Spoke with Dr. Arriaga and Dr. Long this morning - a letter repeat echocardiogram this morning and if no significant worsening in the aortic stenosis we'll plan for surgery at 2:00 this afternoon. We'll plan for admission to ICU post procedure.
[2018-07-07] MEDS: 0.9% Normal Saline 1,000 ML 100 ML IV (07:56)
--- NOTE | 2018-07-07 12:00 | CASEMGMT ---
CINDY TERRY Face to Face with patient for initial transition planning/care coordination assessment. RN CM introduced self and role at [facility]. Patient lying in bed, alert and oriented, son at beside. Patient willing to participate in assessment and is able to answer all questions appropriately. Care providers, pharmacy, and demographics verified. Patient wishes to discharge home, denies need for home health at this time. Patient states he has no further needs or concerns at this time. CM to follow for discharge planning needs that may arise. PCP: Kristen Specialists: Lisa windsmith [facility]erred [facility] Benef[facility]: Yes Living Will/HPOA: Yes son Daniel Mcgrath HPOA LNOK: sons Living Arrangements: Patient lives with son Adolfo in mobile home. Patient states he is independent and able to navigate stairs at home. Transportation: self/sons DME/HHC: Patient has cane, grab bars, and Cpap at home. Patient agreeable to DME through [employer] if needed. Patient denies previous HHC or SNF Disposition Plan: Patient to discharge home with family support and follow-up plans in place. Xi ALBERTO, RN, CM
--- NOTE | 2018-07-07 12:32 | PCM.PROGNOTE ---
Patient Problems: Active and Suspected Problems (Last Updated 07/07/18 @ 07:28 by Fan Otot MD) GI (gastrointestinal bleed) (Acute) Pre-syncope (Acute) Pre-operative cardiovascular examination (Acute) S/P laparoscopic cholecystectomy (Acute) Hx laparoscopic cholecystectomy (Acute) Subjective: Patient seen and examined. States he wants to get surgery this afternoon over with. Denies current pain. Complains of persistent cough which she reports has been ongoing for approximately 1 week. Denies fever, chills. - Physical Exam General: Alert, Oriented x3, Cooperative HEENT: Atraumatic, PERRLA, EOMI, Normocephalic Neck: Supple, No JVD, Negative Carotid Bruits Lungs: Clear to auscultation, Normal air movement Cardiovascular: Regular rate, Regular Rhythm, Normal S1, Normal S2, No murmurs Abdomen: Bowel Sounds Present, Soft, Non Tender, Non-Distended, Obese Extremities: No clubbing, No cyanosis, No edema, Capillary Refill Less than 3 Seconds Skin: No rashes, No breakdown Musculoskeletal: No Tenderness to Palpation of Joints or Extremities Neurological: Cranial nerves II-XII grossly intact, Neuro grossly intact Psych/Mental Status: Normal Affect, Appropriate Vital Signs Temp Pulse Resp BP Pulse Ox 98.4 F 94 18 157/43 H 97 07/07/18 12:03 07/07/18 12:03 07/07/18 12:03 07/07/18 12:03 07/07/18 12:03 Oxygen Flow Rate (L/min) 2 Oxygen Delivery Method Nasal Cannula Weight: 254 lb 3.088 oz Body Mass Index (BMI) 37.5 Finger Stick Blood Glucose 391 Intake and Output for Last 24 Hours 07/05/18 07/06/18 07/07/18 23:59 23:59 23:59 Intake Total 1932 6373.0 / 6373.0 2851 / 2851 Output Total / Balance 1932 6371.0 / 6371.0 2851 / 2851 Microbiology Past 72 Hours 07/05/18 13:35 Stool Occult Blood ([facility]) - Final Stool Occult Blood Positive Laboratory Tests Past 24 Hrs 07/05/18 07/07/18 07/07/18 12:30 05:10 05:10 WBC 7.8 RBC 3.23 L Hgb 8.4 L Hct 27.3 L MCV 84.5 MCH 26.0 L MCHC 30.8 L RDW 14.5 RDW Differential 43.1 Plt Count 166 MPV 11.4 Immature Gran % (Auto) 0.300 Neut % (Auto) 76.7 H Lymph % (Auto) 9.5 L [place] % (Auto) 13.2 H Eos % (Auto) 0.0 Baso % (Auto) 0.3 Absolute Neuts (auto) 6.0 Absolute Lymphs (auto) 0.74 L Total Counted Not Reportable Sodium 139 Potassium 4.3 Chloride 108 H Carbon Dioxide 25.0 Anion Gap 6 BUN 18 Creatinine 1.31 H Estim Creat Clear Calc 53.97 Est GFR (MDRD) Af Amer 70 Est GFR (MDRD) Non-Af 58 L BUN/Creatinine Ratio 13.7 Glucose 214 H Calcium 7.7 L Total Bilirubin 0.40 AST 18 ALT 24 Alkaline Phosphatase 59 Total Protein 5.9 L Albumin 2.7 L Globulin 3.2 Albumin/Globulin Ratio 0.8 L Crossmatch See Detail POC Glucose 07/07/18 07/06/18 07/06/18 06:45 21:47 16:10 POC Glucose 215 H 230 H 180 H 07/06/18 12:52 POC Glucose 191 H Medical Necessity - Tobacco Use Smoking Status: Never smoker Assessment/Plan All Active Problems (Last Updated 07/07/18 @ 07:28 by Fan Otto MD) Acute cholecystitis (Acute) Lactic acid increased (Acute) Abdominal pain (Acute) GI (gastrointestinal bleed) (Acute) Pre-syncope (Acute) Pre-operative cardiovascular examination (Acute) S/P laparoscopic cholecystectomy (Acute) Hx laparoscopic cholecystectomy (Acute) 1. Acute lower GI bleed/ascending colon cancer/multiple polyps-status post 1 unit PRBC, second unit infusing. Continue PPI. Dr. Otto following. Patient underwent EGD/colonoscopy 07/06/2018 which found a bulky tumor in the ascending colon with small polyp in the cecal base. Tumor biopsied. Patient additionally had a large polyp 35 cm which was removed. Plan to undergo laparoscopic right hemicolectomy with Dr. Otto this afternoon. 2. Presyncope secondary to #1- Echocardiogram shows an EF of 65%, mild aortic stenosis, mild pulmonic valve insufficiency, RVSP estimated to be 32 mmHg. 3. Acute blood loss anemia secondary to #1 on chronic normocytic anemia-status post 1 units PRBC. Second unit ordered and infusing. Hemoglobin stable. Trend CBC. 4. CAD status post CABG x3-cardiology following for perioperative cardiovascular clearance. Aspirin on hold secondary to #1. Continue statin. 5. Hypertension-stable, continue home lisinopril, amlodipine. HCTZ on hold. 6. Hyperlipidemia-continue statin. 7. Type 2 diabetes mellitus-hold oral regimen. Accu-Cheks AC at bedtime with sliding scale insulin. 8. Obesity-encouraged diet lifestyle modifications. 9. Chronic kidney disease stage III-at baseline. DVT prophylaxis-SCDs This patient was seen by KYARA Reddy under the supervision of Dr. Vilchis.
[2018-07-07 12:35] LABS: Bedside Glucose 221 mg/dL (70-110)
--- NOTE | 2018-07-07 13:29 | NURSING ---
report called to Jennifer in AC. pt transported down at this time via bed by LUKE Frost.
[2018-07-07 15:07] LABS: Hematocrit 28.5 % (40-54); Hemoglobin 9.3 g/dl (13.0-16.5); Mean Corp Hgb Conc 32.6 g/gl (32-36); Mean Corpuscular Hgb 27.4 pg (27.0-32.0); Mean Corpuscular Volume 83.8 fL (80-94); Mean Platelet Vol. 11.1 fl (6.2-12.0); Platelet Count 179 K/mm3 (150-450); RBC Distribution Width CV 14.8 % (11.6-14.6); RBC Distribution Width SD 45.8 fl (35.1-43.9); White Blood Count 7.3 K/mm3 (4.4-11.0)
[2018-07-07 15:10] LABS: Scan Indicated on CBC? Y/N NO
--- NOTE | 2018-07-07 16:12 | NURSING ---
report called to Tiarra in ICU and pt belongings transferred up to ICU
[2018-07-07] MEDS: BUPIVACAINE LIPOSOME/PF 20 ML VIAL OPERA.SITE (19:13)
[2018-07-07] MEDS: Bupivacaine Mpf 0.5% 30 ML VIAL (19:13)
--- NOTE | 2018-07-07 19:38 | PCM.OPRPT ---
Report of Operation Date of Procedure: 07/07/18 Pre-Operative Diagnosis: RIght colon cancer - hepatic flexure Post-Operative Diagnosis: right metasyncronous colon cancers - Cecum and hepatic flexure, adhesions to liver, right abdomen, incisional herna Surgery/Procedure Performed:: Laparoscopic extended right hemicolectomy, laparoscopic lysis of adhesions production operations manager: Deanne Phillips production operations manager: Alicia Cotter Type of Anesthesia:: General Anesthesiologist: Doni Leone ASA4 Specimen's removed: right colon and omentum, hernia sac Estimated Blood Loss (mL): 150 Fluids Replaced: 1999 Description of Procedure: The patient was brought to the operating suite. Sign in was performed verifying patient, site, procedure, position, and DVT prophylaxis with SCDs. Patient 2 g of cefotetan. Preoperative bowel prep of mechanical and antibiotic comprised of GoLYTELY and then neomycin and Flagyl 1 g 3 doses evening before was given Following induction of general anesthetic. The patient?s abdomen was prepped and draped in the usual fashion. Timeout was performed verifying patient, site, position. Local anesthetic was injected below the umbilicus. Incision made at a super umbilical incisional hernia from his laparoscopic cholecystectomy and the peritoneal cavity entered under direct visualization. A 10 mm Tucker trocar was inserted and the balloon inflated. Pneumoperitoneum to 15 mmHg was insufflated. Visual inspection revealed omental adhesions to the hernia sac and defect, significant adhesions the right upper quadrant and the anterior ink marking tumor noted to be at the hepatic flexure. 3 - 5mm ports were placed in the standard midline position. Harmonic scalpel was used to divide the adhesions to the margin of the hernia sac. Next the patient have dense adhesions to the right upper quadrant abdominal wall and once these were taken down adhesions of the omentum and colon directly to both the right upper quadrant abdominal wall and densely urine to the liver from his previous cholecystectomy. Harmonic scalpel was used to very carefully divided the colon and liver from its adhesions to the abdominal wall and then the colon divided and dissected from the liver again using Harmonic scalpel. At this point the lesser sac was divided to the left of midline and dissection was continued from the left of midline past the midline to the edge of the hepatic flexure and dissection carried down until the proximal duodenum was identified. allowing this,Mobilization the avascular plane was undertaken from the base of the cecum up and around the hepatic flexure. The duodenum was visualized from the right flank region. Next, the terminal ileum area was brought up and a cleavage point noted in the mesentery. Harmonic Scalpel was used to create a window in the terminal ileal mesentery and division was taken down to the ileocolic root. Next the transverse colon was grasped and the vasculature coming from the middle colic vessel was identified. A window was made in the bare area proximal to the middle colic vessels just overlying the duodenal sweep. This was also fully divided. Dissection was then carried out at the ileal colic vessel root. The artery and vein were identified and doubly clipped proximally and doubly clipped distally with Hem-o-karma clips. With full dissection of the mesentery and full mobilization the colon, the supraumbilical incision was extended and a wound protector placed. The terminal ileum and cecum ascending colon part of the transverse colon were delivered through the wound protector. Complete division of the mesentery to the bowel was undertaken at both sites. the in the inked tumor was noted to be right at the hepatic flexure and I therefore performed an extended right hemicolectomy dissecting the colon past the midline. Approximately two thirds the transverse colon omentum was divided and sent with the specimen. both the small bowel and just beyond the mid transverse colon were transected with an intestinal load echelon stapler. following this, a functional stapled end-to-end anastomosis was performed between the ileum and transverse colon with an echelon stapler. The staple line was checked for hemostasis and following this the anastomosis closed with a TA stapler creating a wide triangle opening that was easily palpable. A 3-0 silk suture was used to take tension off the apex of the staple line . At this point, the specimen was opened on the back table. There was noted to be tumor in the expected location at hepatic flexure and a second tumor noted in the ascending colon cecal junction along with a few smaller polyps. Pneumoperitoneum was reestablished and the anastomosis was noted to sit properly in the right upper abdomen.. Gown and gloves were changed. The site had clean towels placed and new instruments were used for fascial closure. the hernia sac was fully dissected and the supra umbilical fascial defect was closed with a running 0 PDS suture. Penumoperitenum was reestablished. There was good anatomic positioning of the small bowel. There was good hemostasis along the incisions. the fascia closure was complete without any trapped material. A lateral rectus abdominus block was performed with Exparal diluted with bupivacaine to 50cc total volume. Additional mixture was injected in the 5mm port sites and lasts some saved for the skin injection Pneumoperitoneum was released. Skin was closed with interrupted 4-0 Monocryl subcuticular sutures. with Exparal diluted with bupivacaine was injected into the skin. Steri-Strips and bandages were applied. The patient was brought to recovery room in stable condition. - Admit VTE Documentation VTE Present on Admission: No VTE Mechan Device Prophylaxis: SCD's VTE Pharm Prophylaxis ordered?: No
--- NOTE | 2018-07-07 19:45 | EKG12_ITS ---
Test Reason : RHYTHM CHANGE Blood Pressure : / mmHG Vent. Rate : 093 BPM Atrial Rate : 093 BPM P-R Int : 182 ms QRS Dur : 080 ms QT Int : 384 ms P-R-T Axes : 038 072 240 degrees QTc Int : [address] & T wave abnormality, consider inferolateral ischemia Premature ventricular complexes Prolonged QT Abnormal ECG When compared with ECG of 06-JUL-2018 09:21, MANUAL COMPARISON REQUIRED, DATA IS UNCONFIRMED Confirmed by JOHANNY BECKETT ([id number]), loan expeditor SWETHA WESTON ([id number]) on 07/14/2018 2:28:14 PM Referred By: PALAK Confirmed By:SILVANA BECKETT
[2018-07-07 20:06] LABS: Bedside Glucose 146 mg/dL (70-110)
[2018-07-07] MEDS: Lactated Ringers 1,000 ML 40 ML IV (20:35)
--- NOTE | 2018-07-07 20:40 | CPS ---
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 Pt with low spo2 on room air so 6L bleed in to his pap was added. SPO2 increased to 96%. Nursing aware.
[2018-07-07] MEDS: Morphine 2 MG/ML Syringe IV (21:35)
[2018-07-07] MEDS: Lisinopril 10 MG Tablet PO (21:37)
[2018-07-07] MEDS: Pravastatin 80 MG Tablet PO (21:37)
[2018-07-07] MEDS: Docusate Sodium 100 MG Capsule PO (21:37)
[2018-07-07 22:01] LABS: Bedside Glucose 220 mg/dL (70-110)
[2018-07-07] MEDS: Acetaminophen 500 MG Tablet 1000 MG PO (23:19)
[2018-07-08] VITALS (22 sets, daily range): BP systolic 116–178; BP diastolic 39–67; PULSE 76–96; RESP 12–21; TEMP 36.6–37.2; O2SAT 94–100
[2018-07-08] MEDS: oxyCODONE 5 MG Tablet 10 MG PO ×2 (00:14→10:05)
[2018-07-08 04:29] LABS: Hematocrit 27.5 % (40-54); Hemoglobin 8.7 g/dl (13.0-16.5); Mean Corp Hgb Conc 31.6 g/gl (32-36); Mean Corpuscular Volume 85.4 fL (80-94); Mean Platelet Vol. 10.9 fl (6.2-12.0); Platelet Count 161 K/mm3 (150-450); RBC Distribution Width CV 14.6 % (11.6-14.6); RBC Distribution Width SD 43.7 fl (35.1-43.9); Red Blood Count 3.22 M/mm3 (4.6-6.2)
[2018-07-08 04:33] LABS: Scan Indicated on CBC? Y/N NO
[2018-07-08 04:42] LABS: Anion Gap 7 (5-15); BUN 21 mg/dL (7-18); BUN/Creat Ratio 13.4 RATIO (10-20); Calcium,Total 7.5 mg/dL (8.5-10.1); Chloride 106 mmol/L (98-107); Creatinine, Serum 1.57 mg/dL (0.70-1.30); EST Glomerular Filtration Rate 47 mL/min (>60); Est Glom Filt Rate - Afr Amer 57 mL/min (>60); Estimated Creatinine Clearance 45.03 ml/min; Glucose 293 mg/dL (74-106); Potassium 4.7 mmol/L (3.5-5.1); Sodium Level 137 mmol/L (136-145)
--- NOTE | 2018-07-08 05:00 | EKG12_ITS ---
Test Reason : AM EKG Blood Pressure : / mmHG Vent. Rate : 081 BPM Atrial Rate : 081 BPM P-R Int : 188 ms QRS Dur : 078 ms QT Int : 378 ms P-R-T Axes : 042 073 230 degrees QTc Int : 439 ms Normal sinus rhythm ST & T wave abnormality, consider lateral ischemia Abnormal ECG When compared with ECG of 07-JUL-2018 20:20, MANUAL COMPARISON REQUIRED, DATA IS UNCONFIRMED Confirmed by JOHANNY BECKETT ([id number]), photo editor SWETHA WESTON ([id number]) on 07/14/2018 2:27:48 PM Referred By: NEISHA Confirmed By:SILVANA BECKETT
[2018-07-08] MEDS: Acetaminophen 500 MG Tablet 1000 MG PO ×3 (05:32→17:03)
[2018-07-08 06:45] LABS: Bedside Glucose 294 mg/dL (70-110)
--- NOTE | 2018-07-08 07:19 | PCM.CON.CC ---
Problem List (1) Abdominal pain Status: Acute Qualifiers: Abdominal location: right upper quadrant Qualified Code(s): R10.11 - Right upper quadrant pain (2) Carotid artery stenosis Status: Chronic Comment: per Carotid doppler done10/01/15 prior to CABG @ [facility]. Right common carotid 50-69% (3) GI (gastrointestinal bleed) Status: Acute (4) CAD (coronary artery disease) Status: Chronic Qualifiers: Coronary Disease-Associated Artery/Lesion type: [place] artery [place] vs. transplanted heart: [place] heart (5) Aortic valve disease Status: Chronic (6) Pre-operative cardiovascular examination Status: Acute (7) S/P laparoscopic cholecystectomy Status: Acute (8) History of left heart catheterization Status: Chronic Comment: 09/26/2015 @ [facility]>tsfer to [facility] for CABG (9) History of non-ST elevation myocardial infarction (NSTEMI) Status: Chronic (10) Hyperlipidemia Status: Chronic Qualifiers: Hyperlipidemia type: pure hypercholesterolemia Qualified Code(s): E78.00 - Pure hypercholesterolemia, unspecified; E78.0 - Pure hypercholesterolemia (11) Obstructive sleep apnea Status: Chronic (12) Diabetes mellitus, type II Status: Chronic (13) Hypertension Status: Chronic Qualifiers: Hypertension type: essential hypertension Qualified Code(s): I10 - Essential (primary) hypertension (14) Atherosclerotic heart disease of [place] coronary artery without angina pectoris Status: Chronic Qualifiers: [place] vs. transplanted heart: [place] heart Qualified Code(s): I25.10 - Atherosclerotic heart disease of [place] coronary artery without angina pectoris Comment: CABG X 3: BLANCO to LAD, SVG to PDA and SVG to Ramus 09/29/2015 @ [facility] per Dr. Milton (15) Obesity (BMI 30-39.9) Status: Chronic Reason for Consult Date of Consultation: 07/08/18 Reason for Consultation: ICU management History of Present Illness: The patient is a 67 year old M, with past medical history listed below, who presented to [facility] on 07/05/2018 secondary to bright red blood per rectum. Patient had originally thought this was some red cough syrup, but the bloody stool made him feel lightheaded and he fell off the commode. Patient denied passing out. Patient does have a history of coronary artery disease, diabetes and sleep apnea and takes a daily aspirin, but no other anticoagulants. Patient had not had a colonoscopy recently. Patient was noted to have a hemoglobin of 11.5. Patient was initiated on IV fluids and seen by surgery in the ER. Patient was admitted to the floor with plans for an upper and lower endoscopy. Lower endoscopy did show a probable colon cancer of the ascending colon. There was some concern given previous cardiac history to proceed with surgery here. Patient went to surgery yesterday at approximately 2 PM and had a laparoscopic right hemicolectomy. Patient tolerated the procedure well. Patient was transferred to the intensive care unit monitored overnight with an arterial line in place. Patient was compliant with baseline ADRIANA therapy. This morning, patient states his pain is well controlled. Patient has not had any bowel sounds, but denies any nausea or vomiting. Patient tolerated CPAP well overnight and feels rested. No hemodynamic instability has been reported. Patient is not reporting any chest pain. No change on telemetry noted. Review of systems otherwise negative x10 systems. Past Medical History Past Medical History (Chronic Problems): Chronic Problems (Last Reviewed 07/07/18 @ 07:28 by Fan Otto MD) Carotid artery stenosis (Chronic) per Carotid doppler done10/01/15 prior to CABG @ [facility]. Right common carotid 50-69% CAD (coronary artery disease) (Chronic) Aortic valve disease (Chronic) History of left heart catheterization (Chronic) 09/26/2015 @ [facility]>tsfer to [facility] for CABG History of non-ST elevation myocardial infarction (NSTEMI) (Chronic) Hyperlipidemia (Chronic) Obstructive sleep apnea (Chronic) Diabetes mellitus, type II (Chronic) Hypertension (Chronic) Hx of CABG (Chronic) CABG X 3: BLANCO to LAD, SVG to PDA and SVG to Ramus 09/29/2015 @ [facility] per Dr. Milton Atherosclerotic heart disease of [place] coronary artery without angina pectoris (Chronic) CABG X 3: BLANCO to LAD, SVG to PDA and SVG to Ramus 09/29/2015 @ [facility] per Dr. Milton Obesity (BMI 30-39.9) (Chronic) Medical History: Medical History (Last Reviewed 07/07/18 @ 07:28 by Fan Otto MD) History of non-ST elevation myocardial infarction (NSTEMI) (Chronic) I25.2 Hyperlipidemia (Chronic) E78.5 Obstructive sleep apnea (Chronic) G47.33 Diabetes mellitus, type II (Chronic) E11.9 Hypertension (Chronic) I10 Atherosclerotic heart disease of [place] coronary artery without angina pectoris (Chronic) I25.10 CABG X 3: BLANCO to LAD, SVG to PDA and SVG to Ramus 09/29/2015 @ [facility] per Dr. Milton Obesity (BMI 30-39.9) (Chronic) E66.9 Allergies No Known Allergies Allergy (Verified 07/05/18 12:14) Home Medications: Ambulatory Orders Medication Instructions Recorded Amlodipine Besylate 10 mg PO DAILY 08/30/15 Garlic 2,000 mg PO DAILY 08/30/15 Hallam-3 Fatty Acids/Fish Oil 2 ea PO BID 08/30/15 [Hallam 3 1,000 mg Softgel] Aspirin [Aspirin, Baby] 81 mg PO DAILY@0800 09/23/15 Multivitamin [Daily Multiple 1 ea PO DAILY 09/23/15 Vitamin] Pravastatin [Pravachol] 80 mg PO QHS 11/03/15 cinnamon bark 500 mg capsule 1,000 mg PO BID ea 03/22/17 hydrochlorothiazide 25 mg tablet 25 mg PO QDAY 04/04/17 metformin 1,000 mg tablet 1,000 mg PO BID 04/04/17 lisinopril 40 mg tablet 40 mg PO DAILY 04/04/18 Surgical History: Surgical History (Last Updated 07/07/18 @ 07:28 by Fan Otto MD) S/P laparoscopic cholecystectomy (Acute) Z90.49 Hx laparoscopic cholecystectomy (Acute) Z90.49 History of left heart catheterization (Chronic) Z98.890 09/26/2015 @ [facility]>tsfer to [facility] for CABG Hx of CABG (Chronic) Z95.1 CABG X 3: BLANCO to LAD, SVG to PDA and SVG to Ramus 09/29/2015 @ [facility] per Dr. Milton Surgical History: coronary bypass surgery, - - Right thoracentesis for pleural effusion, Drain tube bile duct 08/24. Smoking Status: Never smoker Alcohol: None Drugs: None - *Family History Maternal Family History: Family History (Last Reviewed 07/05/18 @ 15:00 by Cr Hendricks MD) Mother CAD (coronary artery disease) Hypertension Father Colon cancer Sister Parkinson's disease History Items: Diabetes Paternal Family History: Family History (Last Reviewed 07/05/18 @ 15:00 by Cr Hendricks MD) Mother CAD (coronary artery disease) Hypertension Father Colon cancer Sister Parkinson's disease History Items: Heart Disease Review of Systems Genitourinary: Reports: - - Some retention noted overnight, but Lan did not need to be placed. Comment: See HPI Patient Problems: Active and Suspected Problems (Last Updated 07/07/18 @ 07:28 by Fan Otto MD) GI (gastrointestinal bleed) (Acute) Pre-syncope (Acute) Pre-operative cardiovascular examination (Acute) S/P laparoscopic cholecystectomy (Acute) Hx laparoscopic cholecystectomy (Acute) Objective: Echocardiogram shows an EF of 65% with focal wall motion abnormality. Left atrium is enlarged. Possible small PFO noted with elevated right ventricular systolic pressure of 32 mmHg and mild aortic valve calcification resulting in mild aortic stenosis. Patient is never had pulmonary function testing previously. - Physical Exam General: Alert, Oriented x3, Cooperative, No apparent distress, Well developed, Well nourished, - - Obese. No conversational dyspnea noted. HEENT: Atraumatic, PERRLA, EOMI, Normocephalic, - - No scleral icterus or injection noted. Oral: Moist Mucosa, No Gingival or Mucosal Lesions/ Ulcerations Neck: Supple, No JVD, No Nodes, Trachea Midline Lungs: No rhonchi, No wheeze, No rales, Diminished, - - Fair effort. Cardiovascular: Regular rate, Regular Rhythm, Normal S1, Normal S2, No murmurs, No rub noted, No Gallop Abdomen: Soft, Bowel Sounds Not Present, Distended - Slightly, Tender - Only to palpation, no rebound Extremities: No clubbing, No cyanosis, No edema, Capillary Refill Less than 3 Seconds Skin: No rashes, No breakdown, Incision - Clean, dry and intact. Musculoskeletal: No Tenderness to Palpation of Joints or Extremities Lymphatic: No Cervical, Supraclavicular, or Inguinal Adenopathy Neurological: Cranial nerves II-XII grossly intact, Neuro grossly intact, Motor Exam 5/5 strength throughout Psych/Mental Status: Alert and oriented to time, place, person, mood and affect Vital Signs Temp Pulse Resp BP Pulse Ox 36.9 C 81 18 135/47 H 99 07/08/18 04:00 07/08/18 07:00 07/08/18 07:00 07/08/18 07:00 07/08/18 07:00 Oxygen Flow Rate (L/min) 2 Oxygen Delivery Method CPAP Weight: 121.3 kg Body Mass Index (BMI) 37.5 Finger Stick Blood Glucose 391 Intake and Output for Last 24 Hours 07/06/18 07/07/18 07/08/18 23:59 23:59 23:59 Intake Total 6373.0 / 6373.0 2851 / 2851 2043 / 2043 Output Total 1450 / 1450 Balance 6371.0 / 6371.0 2851 / 2851 593 / 593 Microbiology Past 72 Hours 07/05/18 13:35 Stool Occult Blood ([place]) - Final Stool Occult Blood Positive Laboratory Tests Past 24 Hrs 07/05/18 07/07/18 07/07/18 12:30 14:48 14:48 WBC 7.3 RBC 3.40 L Hgb 9.3 L Hct 28.5 L MCV 83.8 MCH 27.4 MCHC 32.6 RDW 14.8 H RDW Differential 45.8 H Plt Count 179 MPV 11.1 Sodium Potassium Chloride Carbon Dioxide Anion Gap BUN Creatinine Estim Creat Clear Calc Est GFR (MDRD) Af Amer Est GFR (MDRD) Non-Af BUN/Creatinine Ratio Glucose Calcium Troponin I Blood Type O POSITIVE Antibody Screen NEGATIVE Crossmatch See Detail See Detail 07/07/18 07/08/18 07/08/18 20:25 04:20 04:20 WBC 13.0 H RBC 3.22 L Hgb 8.7 L Hct 27.5 L MCV 85.4 MCH 27.0 MCHC 31.6 L RDW 14.6 RDW Differential 43.7 Plt Count 161 MPV 10.9 Sodium 137 Potassium 4.7 Chloride 106 Carbon Dioxide 24.0 Anion Gap 7 BUN 21 H Creatinine 1.57 H Estim Creat Clear Calc 45.03 Est GFR (MDRD) Af Amer 57 L Est GFR (MDRD) Non-Af 47 L BUN/Creatinine Ratio 13.4 Glucose 293 H Calcium 7.5 L Troponin I 0.077 H Blood Type Antibody Screen Crossmatch 07/08/18 04:20 WBC RBC Hgb Hct MCV MCH MCHC RDW RDW Differential Plt Count MPV Sodium Potassium Chloride Carbon Dioxide Anion Gap BUN Creatinine Estim Creat Clear Calc Est GFR (MDRD) Af Amer Est GFR (MDRD) Non-Af BUN/Creatinine Ratio Glucose Calcium Troponin I 0.061 H Blood Type Antibody Screen Crossmatch POC Glucose 07/08/18 07/07/18 07/07/18 06:43 21:41 17:52 POC Glucose 294 H 220 H 146 H 07/07/18 11:58 POC Glucose 221 H Assessment/Plan Active and Suspected Problems (Last Updated 07/07/18 @ 07:28 by Fan Otto MD) GI (gastrointestinal bleed) (Acute) Pre-syncope (Acute) Pre-operative cardiovascular examination (Acute) S/P laparoscopic cholecystectomy (Acute) Hx laparoscopic cholecystectomy (Acute) RECOMMENDATIONS: 1. Remove arterial line 2. Continue nocturnal CPAP 3. Aggressive pain control/incentive spirometer 4. Transfuse to keep hemoglobin greater than 7 5. Okay to reinitiate baseline medications from my perspective 6. Continue sliding scale insulin 7. Hemodynamically stable on room air. Okay to leave the intensive care unit from my perspective 8. Will sign off from a critical care perspective. Please call with any further issues IMPRESSIONS: 1. Acute blood loss anemia secondary to acute lower GI bleed secondary to probable colon cancer Patient appears to be doing well at this time. Patient did tolerate colon resection without complication. Would recommend monitoring CBC intermittently and keeping hemoglobin greater than 7. Patient will need aggressive pain control and to continue with incentive spirometer to avoid further complications. Increase activity as tolerated. Hemodynamically stable on room air. Okay to discontinue art line and transfer from the intensive care unit from my perspective. 2. Diabetes mellitus type 2 Will need to watch patient's blood sugar closely. Patient is normally on an oral regimen, but this will be held secondary to n.p.o. status. May require subcu insulin. Recommend transitioning to every 6 if remains n.p.o. Q. before meals and at bedtime may be necessary if patient is able to take oral diet. 3. Obstructive sleep apnea Stressed to the patient importance of being compliant with obstructive sleep apnea therapy with all sleep. Patient is on pain medications and this can exacerbate underlying sleep apnea. Patient is compliant with his ADRIANA therapy at baseline. 4. Hyperlipidemia/obesity/CKD stage III/CAD status post CABG x3 Complicates care, management, recovery and prognosis. Okay to continue baseline medications from my perspective once patient able to take p.o. from a surgical perspective. Code Visit Inpatient E&M: [id number] Init Hosp L2
--- NOTE | 2018-07-08 07:27 | CON.PCM_ITS ---
Problem List (1) Abdominal pain Status: Acute Qualifiers: Abdominal location: right upper quadrant Qualified Code(s): R10.11 - Right upper quadrant pain (2) Carotid artery stenosis Status: Chronic Comment: per Carotid doppler done10/01/15 prior to CABG @ [facility]. Right common carotid 50-69% (3) GI (gastrointestinal bleed) Status: Acute (4) CAD (coronary artery disease) Status: Chronic Qualifiers: Coronary Disease-Associated Artery/Lesion type: [place] artery [place] vs. transplanted heart: [place] heart (5) Aortic valve disease Status: Chronic (6) Pre-operative cardiovascular examination Status: Acute (7) S/P laparoscopic cholecystectomy Status: Acute (8) History of left heart catheterization Status: Chronic Comment: 09/26/2015 @ [facility]>tsfer to [facility] for CABG (9) History of non-ST elevation myocardial infarction (NSTEMI) Status: Chronic (10) Hyperlipidemia Status: Chronic Qualifiers: Hyperlipidemia type: pure hypercholesterolemia Qualified Code(s): E78.00 - Pure hypercholesterolemia, unspecified; E78.0 - Pure hypercholesterolemia (11) Obstructive sleep apnea Status: Chronic (12) Diabetes mellitus, type II Status: Chronic (13) Hypertension Status: Chronic Qualifiers: Hypertension type: essential hypertension Qualified Code(s): I10 - Essential (primary) hypertension (14) Atherosclerotic heart disease of [place] coronary artery without angina pectoris Status: Chronic Qualifiers: [place] vs. transplanted heart: [place] heart Qualified Code(s): I25.10 - Atherosclerotic heart disease of [place] coronary artery without angina pectoris Comment: CABG X 3: BLANCO to LAD, SVG to PDA and SVG to Ramus 09/29/2015 @ [facility] per Dr. Milton (15) Obesity (BMI 30-39.9) Status: Chronic Reason for Consult Date of Consultation: 07/08/18 Reason for Consultation: ICU management History of Present Illness: The patient is a 67 year old M, with past medical history listed below, who presented to [facility] on 07/05/2018 secondary to bright red blood per rectum. Patient had originally thought this was some red cough syrup, but the bloody stool made him feel lightheaded and he fell off the commode. Patient denied passing out. Patient does have a history of coronary artery disease, diabetes and sleep apnea and takes a daily aspirin, but no other anticoagulants. Patient had not had a colonoscopy recently. Patient was noted to have a hemoglobin of 11.5. Patient was initiated on IV fluids and seen by surgery in the ER. Patient was admitted to the floor with plans for an upper and lower endoscopy. Lower endoscopy did show a probable colon cancer of the ascending colon. There was some concern given previous cardiac history to proceed with surgery here. Patient went to surgery yesterday at approximately 2 PM and had a laparoscopic right hemicolectomy. Patient tolerated the procedure well. Patient was transferred to the intensive care unit monitored overnight with an arterial line in place. Patient was compliant with baseline ADRIANA therapy. This morning, patient states his pain is well controlled. Patient has not had any bowel sounds, but denies any nausea or vomiting. Patient tolerated CPAP well overnight and feels rested. No hemodynamic instability has been reported. Patient is not reporting any chest pain. No change on telemetry noted. Review of systems otherwise negative x10 systems. Past Medical History Past Medical History (Chronic Problems): Chronic Problems (Last Reviewed 07/07/18 @ 07:28 by Fan Otto MD) Carotid artery stenosis (Chronic) per Carotid doppler done10/01/15 prior to CABG @ [facility]. Right common carotid 50-69% CAD (coronary artery disease) (Chronic) Aortic valve disease (Chronic) History of left heart catheterization (Chronic) 09/26/2015 @ [facility]>tsfer to [facility] for CABG History of non-ST elevation myocardial infarction (NSTEMI) (Chronic) Hyperlipidemia (Chronic) Obstructive sleep apnea (Chronic) Diabetes mellitus, type II (Chronic) Hypertension (Chronic) Hx of CABG (Chronic) CABG X 3: BLANCO to LAD, SVG to PDA and SVG to Ramus 09/29/2015 @ [facility] per Dr. Milton Atherosclerotic heart disease of [place] coronary artery without angina pectoris (Chronic) CABG X 3: BALNCO to LAD, SVG to PDA and SVG to Ramus 09/29/2015 @ [facility] per Dr. Milton Obesity (BMI 30-39.9) (Chronic) Medical History: Medical History (Last Reviewed 07/07/18 @ 07:28 by Fan Otto MD) History of non-ST elevation myocardial infarction (NSTEMI) (Chronic) I25.2 Hyperlipidemia (Chronic) E78.5 Obstructive sleep apnea (Chronic) G47.33 Diabetes mellitus, type II (Chronic) E11.9 Hypertension (Chronic) I10 Atherosclerotic heart disease of [place] coronary artery without angina pectoris (Chronic) I25.10 CABG X 3: BLANCO to LAD, SVG to PDA and SVG to Ramus 09/29/2015 @ [facility] per Dr. Milton Obesity (BMI 30-39.9) (Chronic) E66.9 Allergies No Known Allergies Allergy (Verified 07/05/18 12:14) Home Medications: Ambulatory Orders Medication Instructions Recorded Amlodipine Besylate 10 mg PO DAILY 08/30/15 Garlic 2,000 mg PO DAILY 08/30/15 Wagoner-3 Fatty Acids/Fish Oil 2 ea PO BID 08/30/15 [[place]er 3 1,000 mg Softgel] Aspirin [Aspirin, Baby] 81 mg PO DAILY@0800 09/23/15 Multivitamin [Daily Multiple 1 ea PO DAILY 09/23/15 Vitamin] Pravastatin [Pravachol] 80 mg PO QHS 11/03/15 cinnamon bark 500 mg capsule 1,000 mg PO BID ea 03/22/17 hydrochlorothiazide 25 mg tablet 25 mg PO QDAY 04/04/17 metformin 1,000 mg tablet 1,000 mg PO BID 04/04/17 lisinopril 40 mg tablet 40 mg PO DAILY 04/04/18 Surgical History: Surgical History (Last Updated 07/07/18 @ 07:28 by Fan Otto MD) S/P laparoscopic cholecystectomy (Acute) Z90.49 Hx laparoscopic cholecystectomy (Acute) Z90.49 History of left heart catheterization (Chronic) Z98.890 09/26/2015 @ [facility]>tsfer to [facility] for CABG Hx of CABG (Chronic) Z95.1 CABG X 3: BLANCO to LAD, SVG to PDA and SVG to Ramus 09/29/2015 @ [facility] per Dr. Milton Surgical History: coronary bypass surgery, - - Right thoracentesis for pleural effusion, Drain tube bile duct 08/24. Smoking Status: Never smoker Alcohol: None Drugs: None - *Family History Maternal Family History: Family History (Last Reviewed 07/05/18 @ 15:00 by Cr Hendricks MD) Mother CAD (coronary artery disease) Hypertension Father Colon cancer Sister Parkinson's disease History Items: Diabetes Paternal Family History: Family History (Last Reviewed 07/05/18 @ 15:00 by Cr Hendricks MD) Mother CAD (coronary artery disease) Hypertension Father Colon cancer Sister Parkinson's disease History Items: Heart Disease Review of Systems Genitourinary: Reports: - - Some retention noted overnight, but Lan did not need to be placed. Comment: See HPI Patient Problems: Active and Suspected Problems (Last Updated 07/07/18 @ 07:28 by Fan Otto MD) GI (gastrointestinal bleed) (Acute) Pre-syncope (Acute) Pre-operative cardiovascular examination (Acute) S/P laparoscopic cholecystectomy (Acute) Hx laparoscopic cholecystectomy (Acute) Objective: Echocardiogram shows an EF of 65% with focal wall motion abnormality. Left atrium is enlarged. Possible small PFO noted with elevated right ventricular systolic pressure of 32 mmHg and mild aortic valve calcification resulting in mild aortic stenosis. Patient is never had pulmonary function testing previously. - Physical Exam General: Alert, Oriented x3, Cooperative, No apparent distress, Well developed, Well nourished, - - Obese. No conversational dyspnea noted. HEENT: Atraumatic, PERRLA, EOMI, Normocephalic, - - No scleral icterus or injection noted. Oral: Moist Mucosa, No Gingival or Mucosal Lesions/ Ulcerations Neck: Supple, No JVD, No Nodes, Trachea Midline Lungs: No rhonchi, No wheeze, No rales, Diminished, - - Fair effort. Cardiovascular: Regular rate, Regular Rhythm, Normal S1, Normal S2, No murmurs, No rub noted, No Gallop Abdomen: Soft, Bowel Sounds Not Present, Distended - Slightly, Tender - Only to palpation, no rebound Extremities: No clubbing, No cyanosis, No edema, Capillary Refill Less than 3 Seconds Skin: No rashes, No breakdown, Incision - Clean, dry and intact. Musculoskeletal: No Tenderness to Palpation of Joints or Extremities Lymphatic: No Cervical, Supraclavicular, or Inguinal Adenopathy Neurological: Cranial nerves II-XII grossly intact, Neuro grossly intact, Motor Exam 5/5 strength throughout Psych/Mental Status: Alert and oriented to time, place, person, mood and affect Vital Signs Temp Pulse Resp BP Pulse Ox 36.9 C 81 18 135/47 H 99 07/08/18 04:00 07/08/18 07:00 07/08/18 07:00 07/08/18 07:00 07/08/18 07:00 Oxygen Flow Rate (L/min) 2 Oxygen Delivery Method CPAP Weight: 121.3 kg Body Mass Index (BMI) 37.5 Finger Stick Blood Glucose 391 Intake and Output for Last 24 Hours 07/06/18 07/07/18 07/08/18 23:59 23:59 23:59 Intake Total 6373.0 / 6373.0 2851 / 2851 2043 / 2043 Output Total 1450 / 1450 Balance 6371.0 / 6371.0 2851 / 2851 593 / 593 Microbiology Past 72 Hours 07/05/18 13:35 Stool Occult Blood ([facility]) - Final Stool Occult Blood Positive Laboratory Tests Past 24 Hrs 07/05/18 07/07/18 07/07/18 12:30 14:48 14:48 WBC 7.3 RBC 3.40 L Hgb 9.3 L Hct 28.5 L MCV 83.8 MCH 27.4 MCHC 32.6 RDW 14.8 H RDW Differential 45.8 H Plt Count 179 MPV 11.1 Sodium Potassium Chloride Carbon Dioxide Anion Gap BUN Creatinine Estim Creat Clear Calc Est GFR (MDRD) Af Amer Est GFR (MDRD) Non-Af BUN/Creatinine Ratio Glucose Calcium Troponin I Blood Type O POSITIVE Antibody Screen NEGATIVE Crossmatch See Detail See Detail 07/07/18 07/08/18 07/08/18 20:25 04:20 04:20 WBC 13.0 H RBC 3.22 L Hgb 8.7 L Hct 27.5 L MCV 85.4 MCH 27.0 MCHC 31.6 L RDW 14.6 RDW Differential 43.7 Plt Count 161 MPV 10.9 Sodium 137 Potassium 4.7 Chloride 106 Carbon Dioxide 24.0 Anion Gap 7 BUN 21 H Creatinine 1.57 H Estim Creat Clear Calc 45.03 Est GFR (MDRD) Af Amer 57 L Est GFR (MDRD) Non-Af 47 L BUN/Creatinine Ratio 13.4 Glucose 293 H Calcium 7.5 L Troponin I 0.077 H Blood Type Antibody Screen Crossmatch 07/08/18 04:20 WBC RBC Hgb Hct MCV MCH MCHC RDW RDW Differential Plt Count MPV Sodium Potassium Chloride Carbon Dioxide Anion Gap BUN Creatinine Estim Creat Clear Calc Est GFR (MDRD) Af Amer Est GFR (MDRD) Non-Af BUN/Creatinine Ratio Glucose Calcium Troponin I 0.061 H Blood Type Antibody Screen Crossmatch POC Glucose 07/08/18 07/07/18 07/07/18 06:43 21:41 17:52 POC Glucose 294 H 220 H 146 H 07/07/18 11:58 POC Glucose 221 H Assessment/Plan Active and Suspected Problems (Last Updated 07/07/18 @ 07:28 by Fan Otto MD) GI (gastrointestinal bleed) (Acute) Pre-syncope (Acute) Pre-operative cardiovascular examination (Acute) S/P laparoscopic cholecystectomy (Acute) Hx laparoscopic cholecystectomy (Acute) RECOMMENDATIONS: 1. Remove arterial line 2. Continue nocturnal CPAP 3. Aggressive pain control/incentive spirometer 4. Transfuse to keep hemoglobin greater than 7 5. Okay to reinitiate baseline medications from my perspective 6. Continue sliding scale insulin 7. Hemodynamically stable on room air. Okay to leave the intensive care unit from my perspective 8. Will sign off from a critical care perspective. Please call with any further issues IMPRESSIONS: 1. Acute blood loss anemia secondary to acute lower GI bleed secondary to probable colon cancer Patient appears to be doing well at this time. Patient did tolerate colon resection without complication. Would recommend monitoring CBC intermittently and keeping hemoglobin greater than 7. Patient will need aggressive pain control and to continue with incentive spirometer to avoid further complications. Increase activity as tolerated. Hemodynamically stable on room air. Okay to discontinue art line and transfer from the intensive care unit from my perspective. 2. Diabetes mellitus type 2 Will need to watch patient's blood sugar closely. Patient is normally on an oral regimen, but this will be held secondary to n.p.o. status. May require subcu insulin. Recommend transitioning to every 6 if remains n.p.o. Q. before meals and at bedtime may be necessary if patient is able to take oral diet. 3. Obstructive sleep apnea Stressed to the patient importance of being compliant with obstructive sleep apnea therapy with all sleep. Patient is on pain medications and this can exacerbate underlying sleep apnea. Patient is compliant with his ADRIANA therapy at baseline. 4. Hyperlipidemia/obesity/CKD stage III/CAD status post CABG x3 Complicates care, management, recovery and prognosis. Okay to continue baseline medications from my perspective once patient able to take p.o. from a surgical perspective. Code Visit Inpatient E&M: 15375 Init Hosp L2
--- NOTE | 2018-07-08 08:30 | PCM.PN.HOSP ---
Patient Problems: Active and Suspected Problems (Last Updated 07/07/18 @ 07:28 by Fan Otto MD) GI (gastrointestinal bleed) (Acute) Pre-syncope (Acute) Pre-operative cardiovascular examination (Acute) S/P laparoscopic cholecystectomy (Acute) Hx laparoscopic cholecystectomy (Acute) Subjective: Feeling well. Moderate abdominal pain. Vitals/I&O's: Vital Signs Temp Pulse Resp BP Pulse Ox 36.9 C 81 18 135/47 H 99 07/08/18 04:00 07/08/18 07:00 07/08/18 07:00 07/08/18 07:00 07/08/18 07:00 Oxygen Flow Rate (L/min) 2 Oxygen Delivery Method CPAP Weight: 121.3 kg Body Mass Index (BMI) 37.5 Finger Stick Blood Glucose 391 Intake and Output for Last 24 Hours 07/06/18 07/07/18 07/08/18 23:59 23:59 23:59 Intake Total 6373.0 / 6373.0 2851 / 2851 2043 / 2043 Output Total 1450 / 1450 Balance 6371.0 / 6371.0 2851 / 2851 593 / 593 General: Alert, No apparent distress HEENT: Atraumatic, Normocephalic Oral: Moist Mucosa, No Gingival or Mucosal Lesions/ Ulcerations Neck: No Nodes, Thyroid Normal Size and Texture Lungs: Clear to auscultation, Normal air movement, No rhonchi, No wheeze Cardiovascular: Regular rate, Regular Rhythm, Normal S1, Normal S2 Abdomen: Soft, Non Tender, Hypoactive Bowel Sounds, Distended Extremities: No edema, No Calf Tenderness Skin: No rashes, No breakdown Psych/Mental Status: Normal Affect, Appropriate Microbiology Past 72 Hours 07/05/18 13:35 Stool Stool Occult Blood ([facility]) - Final Occult Blood Positive Laboratory Results 07/05/18 12:30: Crossmatch See Detail 07/07/18 11:58: POC Glucose 221 H 07/07/18 14:48: Blood Type O POSITIVE, Antibody Screen NEGATIVE, Crossmatch See Detail 07/07/18 14:48: WBC 7.3, RBC 3.40 L, Hgb 9.3 L, Hct 28.5 L, MCV 83.8, MCH 27.4, MCHC 32.6, RDW 14.8 H, RDW Differential 45.8 H, Plt Count 179, MPV 11.1 07/07/18 17:52: POC Glucose 146 H 07/07/18 20:25: Troponin I 0.077 H 07/07/18 21:41: POC Glucose 220 H 07/08/18 04:20: WBC 13.0 H, RBC 3.22 L, Hgb 8.7 L, Hct 27.5 L, MCV 85.4, MCH 27.0, MCHC 31.6 L, RDW 14.6, RDW Differential 43.7, Plt Count 161, MPV 10.9 07/08/18 04:20: Sodium 137, Potassium 4.7, Chloride 106, Carbon Dioxide 24.0, Anion Gap 7, BUN 21 H, Creatinine 1.57 H, Estim Creat Clear Calc 45.03, Est GFR (MDRD) Af Amer 57 L, Est GFR (MDRD) Non-Af 47 L, BUN/Creatinine Ratio 13.4, Glucose 293 H, Calcium 7.5 L 07/08/18 04:20: Troponin I 0.061 H 07/08/18 06:43: POC Glucose 294 H Current Medications Acetaminophen (Tylenol) 1,000 mg PO Q6 [facility] Last Admin: 07/08/18 05:32 Dose: 1,000 mg Al Hydroxide/Mg Hydroxide (Mylanta Ii) 30 ml PO Q6H PRN PRN PRN Reason: Gastric Burning Albuterol Sulfate (Ventolin Aerosols) 2.5 mg INHALATION Q2H PRN PRN PRN Reason: Shortness of Breath/Wheezing Amlodipine Besylate (Norvasc) 10 mg PO DAILY [facility] Dextrose (D50w Syringe) 0 gm IV X1 PRN; Protocol PRN Reason: Hypoglycemia Docusate Sodium (Colace) 100 mg PO BID [facility] Last Admin: 07/07/18 21:37 Dose: 100 mg Enoxaparin Sodium (Lovenox) 40 mg SC DAILY [facility] Glucagon () 1 mg IM .X1 PRN PRN Reason: Hypoglycemia Guaifenesin (Robitussin) 20 ml PO Q4H PRN PRN PRN Reason: COUGH Pantoprazole Sodium 80 mg/ (Sodium Chloride) 100 mls @ 10 mls/hr CONT INF Q10H [facility] Last Admin: 07/08/18 06:38 Dose: 10 mls/hr Lactated Ringer's () 1,000 mls @ 40 mls/hr IV .Q25H [facility] Stop: 07/08/18 19:46 Last Admin: 07/07/18 20:35 Dose: 40 mls/hr Insulin Human Lispro (Humalog Kwikpen (Bkc)) 0 unit SQ ACHS [facility]; Protocol Last Admin: 07/07/18 21:42 Dose: 4 u Labetalol HCl (Trandate) 10 mg IV Q1H PRN PRN PRN Reason: SBP GREATER THAN 170 Last Admin: 07/07/18 23:19 Dose: 10 mg Lisinopril (Zestril) 10 mg PO BID [facility] Last Admin: 07/07/18 21:37 Dose: 10 mg Magnesium Hydroxide (Milk Of Magnesia) 30 ml PO DAILY PRN PRN PRN Reason: Constipation Magnesium Oxide (Mag-Ox 400) 400 mg PO DAILY PRN PRN PRN Reason: Constipation Melatonin (Melatonin) 3 mg PO QHS PRN PRN PRN Reason: INSOMNIA Morphine Sulfate () 1 - 3 mg IV Q2H PRN PRN PRN Reason: SEVERE PAIN (6-10/10) Last Admin: 07/07/18 21:35 Dose: 2 mg Nutritional Formula (Lactose Free) (Ensure Clear) 120 ml PO 4X/DAY [facility] Ondansetron HCl (Zofran) 4 mg IV Q8H PRN PRN PRN Reason: NAUSEA/VOMITING Ondansetron HCl (Zofran Odt) 4 mg PO Q6H PRN PRN PRN Reason: NAUSEA Oxycodone HCl (Oxyir) 10 mg PO Q4H PRN PRN PRN Reason: Moderate Pain (4-6/10) Last Admin: 07/08/18 00:14 Dose: 10 mg Pravastatin Sodium (Pravachol) 80 mg PO QHS [facility] Last Admin: 07/07/18 21:37 Dose: 80 mg Promethazine HCl (Phenergan) 25 mg IM Q6H PRN PRN PRN Reason: Breakthrough nausea/vomiting Sodium Chloride () 5 - 15 ml IV UD PRN PRN Reason: SALINE FLUSH Last Admin: 07/06/18 15:04 Dose: 10 ml Medical Necessity - Tobacco Use Smoking Status: Never smoker Assessment/Plan All Active Problems (Last Updated 07/07/18 @ 07:28 by Fan Otto MD) Acute cholecystitis (Acute) Lactic acid increased (Acute) Abdominal pain (Acute) GI (gastrointestinal bleed) (Acute) Pre-syncope (Acute) Pre-operative cardiovascular examination (Acute) S/P laparoscopic cholecystectomy (Acute) Hx laparoscopic cholecystectomy (Acute) 1. GI bleed 2/2 colon mass transfused 1 unit PRBC 2. Colon mass status post right hemicolectomy with LAMBERTO on 07/07 3. Elevated troponins minimal likely d/t surgery and known CAD cardiology on consult 4. near syncope likely 2/2 anemia 5. ABLA Hg went from 10.2 to 8.4 transfused 1 unit PRBC no need for additional units at this time monitor 6. CAD stable resume ASA when ok with general surgery 7. VTE prophylaxis: SCDs Code Visit Inpatient E&M: 06236 Subs Hosp L2
--- NOTE | 2018-07-08 08:38 | PN_ITS ---
Patient Problems: Active and Suspected Problems (Last Updated 07/07/18 @ 07:28 by Fan Otto MD) GI (gastrointestinal bleed) (Acute) Pre-syncope (Acute) Pre-operative cardiovascular examination (Acute) S/P laparoscopic cholecystectomy (Acute) Hx laparoscopic cholecystectomy (Acute) Subjective: Feeling well. Moderate abdominal pain. Vitals/I&O's: Vital Signs Temp Pulse Resp BP Pulse Ox 36.9 C 81 18 135/47 H 99 07/08/18 04:00 07/08/18 07:00 07/08/18 07:00 07/08/18 07:00 07/08/18 07:00 Oxygen Flow Rate (L/min) 2 Oxygen Delivery Method CPAP Weight: 121.3 kg Body Mass Index (BMI) 37.5 Finger Stick Blood Glucose 391 Intake and Output for Last 24 Hours 07/06/18 07/07/18 07/08/18 23:59 23:59 23:59 Intake Total 6373.0 / 6373.0 2851 / 2851 2043 / 2043 Output Total 1450 / 1450 Balance 6371.0 / 6371.0 2851 / 2851 593 / 593 General: Alert, No apparent distress HEENT: Atraumatic, Normocephalic Oral: Moist Mucosa, No Gingival or Mucosal Lesions/ Ulcerations Neck: No Nodes, Thyroid Normal Size and Texture Lungs: Clear to auscultation, Normal air movement, No rhonchi, No wheeze Cardiovascular: Regular rate, Regular Rhythm, Normal S1, Normal S2 Abdomen: Soft, Non Tender, Hypoactive Bowel Sounds, Distended Extremities: No edema, No Calf Tenderness Skin: No rashes, No breakdown Psych/Mental Status: Normal Affect, Appropriate Microbiology Past 72 Hours 07/05/18 13:35 Stool Stool Occult Blood ([facility]) - Final Occult Blood Positive Laboratory Results 07/05/18 12:30: Crossmatch See Detail 07/07/18 11:58: POC Glucose 221 H 07/07/18 14:48: Blood Type O POSITIVE, Antibody Screen NEGATIVE, Crossmatch See Detail 07/07/18 14:48: WBC 7.3, RBC 3.40 L, Hgb 9.3 L, Hct 28.5 L, MCV 83.8, MCH 27.4, MCHC 32.6, RDW 14.8 H, RDW Differential 45.8 H, Plt Count 179, MPV 11.1 07/07/18 17:52: POC Glucose 146 H 07/07/18 20:25: Troponin I 0.077 H 07/07/18 21:41: POC Glucose 220 H 07/08/18 04:20: WBC 13.0 H, RBC 3.22 L, Hgb 8.7 L, Hct 27.5 L, MCV 85.4, MCH 27.0, MCHC 31.6 L, RDW 14.6, RDW Differential 43.7, Plt Count 161, MPV 10.9 07/08/18 04:20: Sodium 137, Potassium 4.7, Chloride 106, Carbon Dioxide 24.0, Anion Gap 7, BUN 21 H, Creatinine 1.57 H, Estim Creat Clear Calc 45.03, Est GFR (MDRD) Af Amer 57 L, Est GFR (MDRD) Non-Af 47 L, BUN/Creatinine Ratio 13.4, Glucose 293 H, Calcium 7.5 L 07/08/18 04:20: Troponin I 0.061 H 07/08/18 06:43: POC Glucose 294 H Current Medications Acetaminophen (Tylenol) 1,000 mg PO Q6 [facility] Last Admin: 07/08/18 05:32 Dose: 1,000 mg Al Hydroxide/Mg Hydroxide (Mylanta Ii) 30 ml PO Q6H PRN PRN PRN Reason: Gastric Burning Albuterol Sulfate (Ventolin Aerosols) 2.5 mg INHALATION Q2H PRN PRN PRN Reason: Shortness of Breath/Wheezing Amlodipine Besylate (Norvasc) 10 mg PO DAILY [facility] Dextrose (D50w Syringe) 0 gm IV X1 PRN; Protocol PRN Reason: Hypoglycemia Docusate Sodium (Colace) 100 mg PO BID [facility] Last Admin: 07/07/18 21:37 Dose: 100 mg Enoxaparin Sodium (Lovenox) 40 mg SC DAILY [facility] Glucagon () 1 mg IM .X1 PRN PRN Reason: Hypoglycemia Guaifenesin (Robitussin) 20 ml PO Q4H PRN PRN PRN Reason: COUGH Pantoprazole Sodium 80 mg/ (Sodium Chloride) 100 mls @ 10 mls/hr CONT INF Q10H [facility] Last Admin: 07/08/18 06:38 Dose: 10 mls/hr Lactated Ringer's () 1,000 mls @ 40 mls/hr IV .Q25H [facility] Stop: 07/08/18 19:46 Last Admin: 07/07/18 20:35 Dose: 40 mls/hr Insulin Human Lispro (Humalog Kwikpen (Bkc)) 0 unit SQ ACHS [facility]; Protocol Last Admin: 07/07/18 21:42 Dose: 4 u Labetalol HCl (Trandate) 10 mg IV Q1H PRN PRN PRN Reason: SBP GREATER THAN 170 Last Admin: 07/07/18 23:19 Dose: 10 mg Lisinopril (Zestril) 10 mg PO BID [facility] Last Admin: 07/07/18 21:37 Dose: 10 mg Magnesium Hydroxide (Milk Of Magnesia) 30 ml PO DAILY PRN PRN PRN Reason: Constipation Magnesium Oxide (Mag-Ox 400) 400 mg PO DAILY PRN PRN PRN Reason: Constipation Melatonin (Melatonin) 3 mg PO QHS PRN PRN PRN Reason: INSOMNIA Morphine Sulfate () 1 - 3 mg IV Q2H PRN PRN PRN Reason: SEVERE PAIN (6-10/10) Last Admin: 07/07/18 21:35 Dose: 2 mg Nutritional Formula (Lactose Free) (Ensure Clear) 120 ml PO 4X/DAY [facility] Ondansetron HCl (Zofran) 4 mg IV Q8H PRN PRN PRN Reason: NAUSEA/VOMITING Ondansetron HCl (Zofran Odt) 4 mg PO Q6H PRN PRN PRN Reason: NAUSEA Oxycodone HCl (Oxyir) 10 mg PO Q4H PRN PRN PRN Reason: Moderate Pain (4-6/10) Last Admin: 07/08/18 00:14 Dose: 10 mg Pravastatin Sodium (Pravachol) 80 mg PO QHS [facility] Last Admin: 07/07/18 21:37 Dose: 80 mg Promethazine HCl (Phenergan) 25 mg IM Q6H PRN PRN PRN Reason: Breakthrough nausea/vomiting Sodium Chloride () 5 - 15 ml IV UD PRN PRN Reason: SALINE FLUSH Last Admin: 07/06/18 15:04 Dose: 10 ml Medical Necessity - Tobacco Use Smoking Status: Never smoker Assessment/Plan All Active Problems (Last Updated 07/07/18 @ 07:28 by Fan Otto MD) Acute cholecystitis (Acute) Lactic acid increased (Acute) Abdominal pain (Acute) GI (gastrointestinal bleed) (Acute) Pre-syncope (Acute) Pre-operative cardiovascular examination (Acute) S/P laparoscopic cholecystectomy (Acute) Hx laparoscopic cholecystectomy (Acute) 1. GI bleed * 2/2 colon mass * transfused 1 unit PRBC 2. Colon mass * status post right hemicolectomy with LAMBERTO on 07/07 3. Elevated troponins * minimal * likely d/t surgery and known CAD * cardiology on consult 4. near syncope * likely 2/2 anemia 5. ABLA * Hg went from 10.2 to 8.4 * transfused 1 unit PRBC * no need for additional units at this time * monitor 6. CAD * stable * resume ASA when ok with general surgery 7. VTE prophylaxis: SCDs Code Visit Inpatient E&M: 86850 Subs Hosp L2
[2018-07-08] MEDS: Insulin Lispro 100 UNIT/ML INSULN.PEN SQ ×4 (08:49→22:07)
--- NOTE | 2018-07-08 09:05 | PN.SURG_ITS ---
Patient Problems: Active and Suspected Problems (Last Updated 07/07/18 @ 07:28 by Fan Otto MD) GI (gastrointestinal bleed) (Acute) Pre-syncope (Acute) Pre-operative cardiovascular examination (Acute) S/P laparoscopic cholecystectomy (Acute) Hx laparoscopic cholecystectomy (Acute) Subjective: minimal incisional pain - Physical Exam General: Alert, Oriented x3, Cooperative Neck: Supple, No JVD, Negative Carotid Bruits Lungs: Clear to auscultation, Normal air movement Cardiovascular: Regular rate, No murmurs, Murmur Abdomen: Soft, Non Tender, Hypoactive Bowel Sounds, - - incisions clean, dry, intact Vital Signs Temp Pulse Resp BP Pulse Ox 98.6 F 82 15 133/56 H 96 07/08/18 08:44 07/08/18 08:44 07/08/18 08:44 07/08/18 08:44 07/08/18 08:44 Oxygen Flow Rate (L/min) 2 Oxygen Delivery Method Room Air Weight: 121.3 kg Body Mass Index (BMI) 37.5 Finger Stick Blood Glucose 391 Intake and Output for Last 24 Hours 07/06/18 07/07/18 07/08/18 23:59 23:59 23:59 Intake Total 6373.0 / 6373.0 2851 / 2851 2043 / 2043 Output Total 2 / 1450 / 1450 Balance 6371.0 / 6371.0 2851 / 2851 593 / 593 Microbiology Past 72 Hours 07/05/18 13:35 Stool Occult Blood ([facility]) - Final Stool Occult Blood Positive Laboratory Tests Past 24 Hrs 07/05/18 07/07/18 07/07/18 12:30 14:48 14:48 WBC 7.3 RBC 3.40 L Hgb 9.3 L Hct 28.5 L MCV 83.8 MCH 27.4 MCHC 32.6 RDW 14.8 H RDW Differential 45.8 H Plt Count 179 MPV 11.1 Sodium Potassium Chloride Carbon Dioxide Anion Gap BUN Creatinine Estim Creat Clear Calc Est GFR (MDRD) Af Amer Est GFR (MDRD) Non-Af BUN/Creatinine Ratio Glucose Calcium Troponin I Blood Type O POSITIVE Antibody Screen NEGATIVE Crossmatch See Detail See Detail 07/07/18 07/08/18 07/08/18 20:25 04:20 04:20 WBC 13.0 H RBC 3.22 L Hgb 8.7 L Hct 27.5 L MCV 85.4 MCH 27.0 MCHC 31.6 L RDW 14.6 RDW Differential 43.7 Plt Count 161 MPV 10.9 Sodium 137 Potassium 4.7 Chloride 106 Carbon Dioxide 24.0 Anion Gap 7 BUN 21 H Creatinine 1.57 H Estim Creat Clear Calc 45.03 Est GFR (MDRD) Af Amer 57 L Est GFR (MDRD) Non-Af 47 L BUN/Creatinine Ratio 13.4 Glucose 293 H Calcium 7.5 L Troponin I 0.077 H Blood Type Antibody Screen Crossmatch 07/08/18 04:20 WBC RBC Hgb Hct MCV MCH MCHC RDW RDW Differential Plt Count MPV Sodium Potassium Chloride Carbon Dioxide Anion Gap BUN Creatinine Estim Creat Clear Calc Est GFR (MDRD) Af Amer Est GFR (MDRD) Non-Af BUN/Creatinine Ratio Glucose Calcium Troponin I 0.061 H Blood Type Antibody Screen Crossmatch POC Glucose 07/08/18 07/07/18 07/07/18 06:43 21:41 17:52 POC Glucose 294 H 220 H 146 H 07/07/18 11:58 POC Glucose 221 H Medical Necessity - Tobacco Use Smoking Status: Never smoker Assessment/Plan All Active Problems (Last Updated 07/07/18 @ 07:28 by Fan Otto MD) Acute cholecystitis (Acute) Lactic acid increased (Acute) Abdominal pain (Acute) GI (gastrointestinal bleed) (Acute) Pre-syncope (Acute) Pre-operative cardiovascular examination (Acute) S/P laparoscopic cholecystectomy (Acute) Hx laparoscopic cholecystectomy (Acute) lower GI bleed-hematochezia - Ascending colon cancer, multiple polyps Post op day #1 status laparoscopic post extended right hemicolectomy with laparoscopic lysis of adhesions patient underwent laparoscopic extended right hemicolectomy and extensive lysis of adhesions complicated by very dense adhesions from his previous cholecystectomy site.patient had a few episodes of bradycardia during surgery likely secondary to intra-abdominal pressure which responded to vagolytics. patient stable overnight in ICU. Initially hypertensive which responded to labetalol. Pressures of been appropriate overnight since area did Patient with reasonable urine output. appreciate note from Dr. Corado for his risk stratification given his prior TX and CABG and now on echocardiogram moderate aortic stenosis. given his hemodynamic stability I am comfortable with the artery line being d iscontinued and being transferred to progressive care unit. the patient is encouraged to ambulate, chew gum and use his incentive spirometer.
--- NOTE | 2018-07-08 09:58 | PN.CARD_ITS ---
Subjectve: The patient is now status post his general surgical procedure. He denies ongoing chest discomfort or difficulty breathing. Objective: Vital Signs Temp Pulse Resp BP Pulse Ox 98.6 F 82 15 133/56 H 96 07/08/18 08:44 07/08/18 08:44 07/08/18 08:44 07/08/18 08:44 07/08/18 08:44 Oxygen Flow Rate (L/min) 2 Oxygen Delivery Method Room Air Weight: 267 lb 6.731 oz Body Mass Index (BMI) 37.5 Finger Stick Blood Glucose 391 Intake and Output for Last 24 Hours 07/06/18 07/07/18 07/08/18 23:59 23:59 23:59 Intake Total 6373.0 / 6373.0 2851 / 2851 2043 / 2043 Output Total 1450 / 1450 Balance 6371.0 / 6371.0 2851 / 2851 593 / 593 General: Awake, Alert, Oriented x 3, Cooperative, No Acute Distress HEENT: Atraumatic, Normocephalic, PERRL, EOMI, Sclera Non Icteric Oral: Moist Mucosa Neck: Supple, Good ROM, No JVD Lungs: Clear to auscultation Cardiovascular: Regular Rhythm, Normal S1, Normal S2 Murmur Murmur: Grade 3/6, Harsh, Mid Systolic, LLSB, LVOT, Sternal Notch Abdomen: Hypoactive Bowel Sounds, Distended Extremities: Trace RLE Edema, Trace LLE Edema Psych/Mental Status: Appropriate 07/07/18 14:48: WBC 7.3, RBC 3.40 L, Hgb 9.3 L, Hct 28.5 L, MCV 83.8, MCH 27.4, MCHC 32.6, RDW 14.8 H, RDW Differential 45.8 H, Plt Count 179, MPV 11.1 07/07/18 20:25: Troponin I 0.077 H 07/08/18 04:20: WBC 13.0 H, RBC 3.22 L, Hgb 8.7 L, Hct 27.5 L, MCV 85.4, MCH 27.0, MCHC 31.6 L, RDW 14.6, RDW Differential 43.7, Plt Count 161, MPV 10.9 07/08/18 04:20: Sodium 137, Potassium 4.7, Chloride 106, Carbon Dioxide 24.0, Anion Gap 7, BUN 21 H, Creatinine 1.57 H, Est GFR (MDRD) Af Amer 57 L, Est GFR (MDRD) Non-Af 47 L, BUN/Creatinine Ratio 13.4, Glucose 293 H, Calcium 7.5 L 07/08/18 04:20: Troponin I 0.061 H Rhythm: Sinus rhythm EKG: Sinus rhythm; ST/T wave abnormality: Consideration for inferolateral myocardial ischemia: Compared to the previous ECGs there appears to be no significant change ECHO: Interpretation Summary Segmental dysfunction with preserved ejection fraction (see wall motion). The estimated ejection fraction is 65 %. The left atrium is mildly enlarged. Trivial mitral valve insufficiency. Trivial tricuspid valve insufficiency. Mild aortic stenosis. Mild (1+) pulmonic valve insufficiency. Right ventricular systolic pressure estimated to be 32 mmHg. Color flow doppler cannot exclude a small PFO vs. ASD. Medical Necessity - Tobacco Use Smoking Status: Never smoker Assessment/Plan 1. CAD status post CABG The patient has history of CAD. At the present time the patient denies ongoing symptoms of chest discomfort or difficulty breathing. He underwent his surgical procedure without report of any obvious adverse cardiovascular events. However, per his surgery team, cardiac enzymes were obtained. He was noted to have indeterminate troponin I levels. This may be secondary, especially in light of his surgery and anemia, to a type II supply demand mismatch event. At the present time he will continue to be followed and treated medically. This will include agents such as aspirin along with nitrates as needed, beta blockers, lipid-lowering agents, and additional antiplatelet/anticoagulant agents as deemed appropriate. Depending upon his clinical course, as he recuperates from his surgical procedure, he may need further future evaluation with either noninvasive or invasive studies to reassess his coronary physiology/anatomy. 2. Aortic valve disorder/stenosis His aortic valve was reassessed by transthoracic echocardiogram. He was found to have mild aortic valve stenosis. 3. Hyperlipidemia The patient will continue lipid-lowering therapy. 4. Hypertension The patient's blood pressure can be followed. His medications which he has been on, which has included GISELA inhibitors and dihydropyridine agents, can be adjusted as deemed appropriate. 5. Diabetes mellitus He will continue under the care of internal medicine. 6. Gastrointestinal bleeding process He is now status post his general surgical procedure. He will continue to be followed by general surgery as he recuperates. This note was generated with [employer] software. It may contain incorrect words, spelling, and punctuation that were not noted in checking the note before signing.
[2018-07-08] MEDS: Lisinopril 10 MG Tablet PO ×2 (10:06→22:11)
[2018-07-08] MEDS: Ensure Clear 120 ML Liquid PO (10:06)
[2018-07-08] MEDS: Docusate Sodium 100 MG Capsule PO ×2 (10:07→22:07)
[2018-07-08] MEDS: Enoxaparin 40 MG/0.4 ML Syringe SC (10:07)
[2018-07-08] MEDS: amLODIPine 10 MG Tablet PO (10:07)
[2018-07-08] MEDS: Metoprolol Tartrate 25 MG Tablet PO ×2 (10:09→22:10)
[2018-07-08] MEDS: Aspirin 81 MG TAB.CHEW PO (10:09)
[2018-07-08 12:10] LABS: Bedside Glucose 248 mg/dL (70-110)
--- NOTE | 2018-07-08 14:48 | CPS ---
This [facility] did a short pap education/mask fitting with patient. New nasal mask given to pt from [facility]. Made patient aware that multiple voicemails were left to schedule outpatient PAP Education/Mask fitting. Also, patient stated that he needed a new [employer], information given to patient on [employer].
[2018-07-08 16:21] LABS: Bedside Glucose 191 mg/dL (70-110)
[2018-07-08 17:44] LABS: Carcinoembryonic Antigen 3.3 ng/mL (0.0-4.7)
[2018-07-08] MEDS: Pravastatin 80 MG Tablet PO (22:11)
[2018-07-09] VITALS (15 sets, daily range): BP systolic 130–148; BP diastolic 42–66; PULSE 72–93; RESP 16–18; TEMP 36.8–37.4; O2SAT 93–96
[2018-07-09 01:01] LABS: Bedside Glucose 222 mg/dL (70-110)
[2018-07-09 06:28] LABS: Absolute Lymphocyte Count 1.11 X10^3/ul (0.83-4.51); Absolute Neutrophil Count 11.7 X10^3/uL (2.0-7.7); Basophil# 0.02 X10^3/uL; Basophil% 0.1 % (0-1); Eosinophil# 0.02 X10^3/uL; Eosinophils% 0.1 % (0-5); Hematocrit 28.3 % (40-54); Lymphocyte # 1.11 X10^3/ul (4.0); Lymphocyte % 7.6 % (19-41); Mean Corp Hgb Conc 31.8 g/gl (32-36); Mean Corpuscular Hgb 26.9 pg (27.0-32.0); Mean Corpuscular Volume 84.5 fL (80-94); Mean Platelet Vol. 11.2 fl (6.2-12.0); Monocyte# 1.66 X10^3/uL; Monocyte% 11.4 % (0-10); Neutrophil # 11.73 X10^3/uL (2.7-7.7); Neutrophil % 80.3 % (47-70); Platelet Count 207 K/mm3 (150-450); RBC Distribution Width CV 15.1 % (11.6-14.6); RBC Distribution Width SD 46.7 fl (35.1-43.9); Red Blood Count 3.35 M/mm3 (4.6-6.2); White Blood Count 14.6 K/mm3 (4.4-11.0)
[2018-07-09 06:32] LABS: Differential Indicated SCAN CRITERIA MET; POSITIVE COUNT NO; POSITIVE DIFFERENTIAL YES; POSITIVE MORPHOLOGY NO
[2018-07-09 06:45] LABS: Differential Comment SCANNED; Macrocytosis 1+
[2018-07-09] MEDS: Acetaminophen 500 MG Tablet 1000 MG PO ×4 (06:45→23:13)
[2018-07-09] MEDS: Insulin Lispro 100 UNIT/ML INSULN.PEN SQ ×4 (06:46→21:54)
[2018-07-09 07:01] LABS: Bedside Glucose 200 mg/dL (70-110)
[2018-07-09 07:03] LABS: Anion Gap 8 (5-15); BUN 25 mg/dL (7-18); BUN/Creat Ratio 15.4 RATIO (10-20); Chloride 104 mmol/L (98-107); Creatinine, Serum 1.62 mg/dL (0.70-1.30); EST Glomerular Filtration Rate 45 mL/min (>60); Est Glom Filt Rate - Afr Amer 55 mL/min (>60); Estimated Creatinine Clearance 43.64 ml/min; Glucose 219 mg/dL (74-106); Potassium 4.3 mmol/L (3.5-5.1); Sodium Level 136 mmol/L (136-145)
[2018-07-09] MEDS: Metoprolol Tartrate 25 MG Tablet PO ×2 (10:03→11:56)
[2018-07-09] MEDS: Aspirin 81 MG TAB.CHEW PO (10:03)
[2018-07-09] MEDS: Docusate Sodium 100 MG Capsule PO (10:03)
[2018-07-09] MEDS: Lisinopril 10 MG Tablet PO ×2 (10:03→21:53)
[2018-07-09] MEDS: Enoxaparin 40 MG/0.4 ML Syringe SC (10:03)
[2018-07-09] MEDS: amLODIPine 10 MG Tablet PO (10:03)
--- NOTE | 2018-07-09 10:27 | PCM.PN.CARD ---
Subjectve: The patient is awake and alert. He has been up and ambulating. His diet is slowly progressing. He denies ongoing chest discomfort or difficulty breathing. He has had no obvious palpitations. He does complain of a cough. Objective: Vital Signs Temp Pulse Resp BP Pulse Ox 98.4 F 90 16 142/57 H 94 07/09/18 09:40 07/09/18 10:03 07/09/18 09:40 07/09/18 10:03 07/09/18 09:40 Oxygen Flow Rate (L/min) 2 Oxygen Delivery Method Room Air Weight: 262 lb 12.656 oz Body Mass Index (BMI) 37.5 Finger Stick Blood Glucose 391 Intake and Output for Last 24 Hours 07/07/18 07/08/18 07/09/18 23:59 23:59 23:59 Intake Total 2851 / 2851 2466 / 2466 747 / 747 Output Total 1450 / 1450 450 / 450 Balance 2851 / 2851 1016 / 1016 297 / 297 General: Awake, Alert, Oriented x 3, Cooperative, No Acute Distress, Obese HEENT: Atraumatic, Normocephalic, PERRL, EOMI, Sclera Non Icteric Oral: Moist Mucosa Neck: Supple, Good ROM, No JVD Lungs: Expiratory Wheezes-Zaid Cardiovascular: Regular Rhythm, Premature Ectopic Beats, Normal S1, Normal S2 Murmur Murmur: Grade 3/6, Harsh, Mid Systolic, LLSB, LVOT, Sternal Notch Abdomen: Hypoactive Bowel Sounds Psych/Mental Status: Appropriate 07/09/18 05:45: WBC 14.6 H, RBC 3.35 L, Hgb 9.0 L, Hct 28.3 L, MCV 84.5, MCH 26.9 L, MCHC 31.8 L, RDW 15.1 H, RDW Differential 46.7 H, Plt Count 207, MPV 11.2, Immature Gran % (Auto) 0.500, Neut % (Auto) 80.3 H, Lymph % (Auto) 7.6 L, Hickman % (Auto) 11.4 H, Eos % (Auto) 0.1, Baso % (Auto) 0.1, Absolute Neuts (auto) 11.7 H, Total Counted Not Reportable 07/09/18 05:45: Sodium 136, Potassium 4.3, Chloride 104, Carbon Dioxide 24.0, Anion Gap 8, BUN 25 H, Creatinine 1.62 H, Est GFR (MDRD) Af Amer 55 L, Est GFR (MDRD) Non-Af 45 L, BUN/Creatinine Ratio 15.4, Glucose 219 H, Calcium 8.0 L Rhythm: Sinus rhythm; PVCs Medical Necessity - Tobacco Use Smoking Status: Never smoker Assessment/Plan 1. CAD status post CABG The patient has history of CAD. At the present time the patient denies ongoing symptoms of chest discomfort or difficulty breathing. He underwent his surgical procedure without report of any obvious adverse cardiovascular events. However, per his surgery team, cardiac enzymes were obtained. He was noted to have indeterminate troponin I levels. This may be secondary, especially in light of his surgery and anemia, to a type II supply demand mismatch event. At the present time he will continue to be followed and treated medically. This will include agents such as aspirin along with nitrates as needed, beta blockers, lipid-lowering agents, and additional antiplatelet/anticoagulant agents as deemed appropriate. Depending upon his clinical course, as he recuperates from his surgical procedure, he may need further future evaluation with either noninvasive or invasive studies to reassess his coronary physiology/anatomy. 2. Aortic valve disorder/stenosis His aortic valve was reassessed by transthoracic echocardiogram. He was found to have mild aortic valve stenosis. 3. PVCs He does have some underlying ventricular ectopy. He appears without obvious symptoms or compromise at this time. He will continue medical management including his beta-blockers. 4. Hyperlipidemia The patient will continue lipid-lowering therapy. 5. Hypertension The patient's blood pressure can be followed. His medications which he has been on, which has included GISELA inhibitors and dihydropyridine agents, can be adjusted as deemed appropriate. 6. Diabetes mellitus He will continue under the care of internal medicine. 7. Gastrointestinal bleeding process He is now status post his general surgical procedure. He will continue to be followed by general surgery as he recuperates. His H&H is being followed. If his H&H declines he may need additional PRBCs. This note was generated with [employer] software. It may contain incorrect words, spelling, and punctuation that were not noted in checking the note before signing.
--- NOTE | 2018-07-09 10:49 | PCM.PN.SRG ---
Patient Problems: Active and Suspected Problems (Last Reviewed 07/07/18 @ 07:28 by Fan Otto MD) GI (gastrointestinal bleed) (Acute) Pre-syncope (Acute) Pre-operative cardiovascular examination (Acute) Subjective: Patient is ambulating somewhat complaint that doesn't have sensation of needing to void (can't feel bladder distention), also cannot feel actual act of urination - can only tell by hearing urine stream in the toilet - he states that he has noted this since surgery elevated WBC but remains afebrile - Physical Exam General: Alert, Oriented x3 HEENT: Atraumatic Oral: Moist Mucosa Neck: Supple Lungs: Normal air movement Abdomen: - - soft, but patient states that it is slightly distened, decreased bowel sounds - some rumblings, incisions are intact with minimal seepage Vital Signs Temp Pulse Resp BP Pulse Ox 98.4 F 90 16 142/57 H 94 07/09/18 09:40 07/09/18 10:03 07/09/18 09:40 07/09/18 10:03 07/09/18 09:40 Oxygen Flow Rate (L/min) 2 Oxygen Delivery Method Room Air Weight: 119.2 kg Body Mass Index (BMI) 37.5 Finger Stick Blood Glucose 391 Intake and Output for Last 24 Hours 07/07/18 07/08/18 07/09/18 23:59 23:59 23:59 Intake Total 2851 / 2851 2466 / 2466 747 / 747 Output Total 1450 / 1450 450 / 450 Balance 2851 / 2851 1016 / 1016 297 / 297 Laboratory Tests Past 24 Hrs 07/06/18 07/09/18 07/09/18 08:52 05:45 05:45 WBC 14.6 H RBC 3.35 L Hgb 9.0 L Hct 28.3 L MCV 84.5 MCH 26.9 L MCHC 31.8 L RDW 15.1 H RDW Differential 46.7 H Plt Count 207 MPV 11.2 Immature Gran % (Auto) 0.500 Neut % (Auto) 80.3 H Lymph % (Auto) 7.6 L [place]ble % (Auto) 11.4 H Eos % (Auto) 0.1 Baso % (Auto) 0.1 Absolute Neuts (auto) 11.7 H Absolute Lymphs (auto) 1.11 Total Counted Not Reportable Differential Comment SCANNED Diff Path Review May foll Macrocytosis 1+ Sodium 136 Potassium 4.3 Chloride 104 Carbon Dioxide 24.0 Anion Gap 8 BUN 25 H Creatinine 1.62 H Estim Creat Clear Calc 43.64 Est GFR (MDRD) Af Amer 55 L Est GFR (MDRD) Non-Af 45 L BUN/Creatinine Ratio 15.4 Glucose 219 H Calcium 8.0 L Carcinoembryonic Ag 3.3 POC Glucose 07/09/18 07/08/18 07/08/18 06:43 22:04 16:09 POC Glucose 200 H 222 H 191 H 07/08/18 11:47 POC Glucose 248 H Medical Necessity - Tobacco Use Smoking Status: Never smoker Assessment/Plan All Active Problems (Last Updated 07/07/18 @ 07:28 by Fan Otto MD) Acute cholecystitis (Acute) Lactic acid increased (Acute) Abdominal pain (Acute) GI (gastrointestinal bleed) (Acute) Pre-syncope (Acute) Pre-operative cardiovascular examination (Acute) S/P laparoscopic cholecystectomy (Acute) Hx laparoscopic cholecystectomy (Acute) IMPRESSION: POD#2 s/p laparoscopic extended right hemicolectomy PLAN: encourage ambulation encourage incentive spirometry Patient to remain on clear liquids until passage of flatus continue present therapy Patient counseled that he is at risk for pneumonia, etc. - given his medical morbidities and encouraged to do above
--- NOTE | 2018-07-09 11:34 | PCM.PN.HOSP ---
Patient Problems: Active and Suspected Problems (Last Reviewed 07/07/18 @ 07:28 by Fan Otto MD) GI (gastrointestinal bleed) (Acute) Pre-syncope (Acute) Pre-operative cardiovascular examination (Acute) Subjective: No flatus. + Belching. Increased abdominal distention. Vitals/I&O's: Vital Signs Temp Pulse Resp BP Pulse Ox 36.9 C 90 16 142/57 H 94 07/09/18 09:40 07/09/18 10:03 07/09/18 09:40 07/09/18 10:03 07/09/18 09:40 Oxygen Flow Rate (L/min) 2 Oxygen Delivery Method Room Air Weight: 119.2 kg Body Mass Index (BMI) 37.5 Finger Stick Blood Glucose 391 Intake and Output for Last 24 Hours 07/07/18 07/08/18 07/09/18 23:59 23:59 23:59 Intake Total 2851 / 2851 2466 / 2466 747 / 747 Output Total 1450 / 1450 450 / 450 Balance 2851 / 2851 1016 / 1016 297 / 297 General: Alert, No apparent distress HEENT: Atraumatic, Normocephalic Oral: Moist Mucosa, No Gingival or Mucosal Lesions/ Ulcerations Neck: No Nodes, Thyroid Normal Size and Texture Lungs: Clear to auscultation, Normal air movement, No rhonchi, No wheeze Cardiovascular: Regular rate, Regular Rhythm, Normal S1, Normal S2, No murmurs Abdomen: Soft, Non Tender, Hypoactive Bowel Sounds, Distended Extremities: No edema, No Calf Tenderness Psych/Mental Status: Normal Affect, Appropriate Laboratory Results 07/06/18 08:52: Carcinoembryonic Ag 3.3 07/08/18 11:47: POC Glucose 248 H 07/08/18 16:09: POC Glucose 191 H 07/08/18 22:04: POC Glucose 222 H 07/09/18 05:45: WBC 14.6 H, RBC 3.35 L, Hgb 9.0 L, Hct 28.3 L, MCV 84.5, MCH 26.9 L, MCHC 31.8 L, RDW 15.1 H, RDW Differential 46.7 H, Plt Count 207, MPV 11.2, Immature Gran % (Auto) 0.500, Neut % (Auto) 80.3 H, Lymph % (Auto) 7.6 L, [place] % (Auto) 11.4 H, Eos % (Auto) 0.1, Baso % (Auto) 0.1, Absolute Neuts (auto) 11.7 H, Absolute Lymphs (auto) 1.11, Total Counted Not Reportable, Differential Comment SCANNED, Diff Path Review May foll, Macrocytosis 1+ 07/09/18 05:45: Sodium 136, Potassium 4.3, Chloride 104, Carbon Dioxide 24.0, Anion Gap 8, BUN 25 H, Creatinine 1.62 H, Estim Creat Clear Calc 43.64, Est GFR (MDRD) Af Amer 55 L, Est GFR (MDRD) Non-Af 45 L, BUN/Creatinine Ratio 15.4, Glucose 219 H, Calcium 8.0 L 07/09/18 06:43: POC Glucose 200 H Current Medications Acetaminophen (Tylenol) 1,000 mg PO Q6 [facility] Last Admin: 07/09/18 06:45 Dose: 1,000 mg Al Hydroxide/Mg Hydroxide (Mylanta Ii) 30 ml PO Q6H PRN PRN PRN Reason: Gastric Burning Albuterol Sulfate (Ventolin Aerosols) 2.5 mg INHALATION Q2H PRN PRN PRN Reason: Shortness of Breath/Wheezing Amlodipine Besylate (Norvasc) 10 mg PO DAILY [facility] Last Admin: 07/09/18 10:03 Dose: 10 mg Aspirin (Aspirin, Baby) 81 mg PO DAILY@0800 [facility] Last Admin: 07/09/18 10:03 Dose: 81 mg Dextrose (D50w Syringe) 0 gm IV X1 PRN; Protocol PRN Reason: Hypoglycemia Docusate Sodium (Colace) 100 mg PO BID [facility] Last Admin: 07/09/18 10:03 Dose: 100 mg Enoxaparin Sodium (Lovenox) 40 mg SC DAILY [facility] Last Admin: 07/09/18 10:03 Dose: 40 mg Glucagon () 1 mg IM .X1 PRN PRN Reason: Hypoglycemia Guaifenesin (Robitussin) 20 ml PO Q4H PRN PRN PRN Reason: COUGH Pantoprazole Sodium 80 mg/ (Sodium Chloride) 100 mls @ 10 mls/hr CONT INF Q10H [facility] Last Admin: 07/09/18 06:45 Dose: 10 mls/hr Insulin Human Lispro (Humalog Kwikpen (Bkc)) 0 unit SQ ACHS [facility]; Protocol Last Admin: 07/09/18 06:46 Dose: 4 u Labetalol HCl (Trandate) 10 mg IV Q1H PRN PRN PRN Reason: SBP GREATER THAN 170 Last Admin: 07/07/18 23:19 Dose: 10 mg Lisinopril (Zestril) 10 mg PO BID [facility] Last Admin: 07/09/18 10:03 Dose: 10 mg Magnesium Hydroxide (Milk Of Magnesia) 30 ml PO DAILY PRN PRN PRN Reason: Constipation Magnesium Oxide (Mag-Ox 400) 400 mg PO DAILY PRN PRN PRN Reason: Constipation Melatonin (Melatonin) 3 mg PO QHS PRN PRN PRN Reason: INSOMNIA Metoprolol Tartrate (Lopressor (Beta Chasity)) 50 mg PO BID [facility] Morphine Sulfate () 1 - 3 mg IV Q2H PRN PRN PRN Reason: SEVERE PAIN (6-10/10) Last Admin: 07/07/18 21:35 Dose: 2 mg Nutritional Formula (Lactose Free) (Ensure Clear) 120 ml PO 4X/DAY [facility] Last Admin: 07/09/18 10:03 Dose: Not Given Ondansetron HCl (Zofran) 4 mg IV Q8H PRN PRN PRN Reason: NAUSEA/VOMITING Ondansetron HCl (Zofran Odt) 4 mg PO Q6H PRN PRN PRN Reason: NAUSEA Oxycodone HCl (Oxyir) 10 mg PO Q4H PRN PRN PRN Reason: Moderate Pain (4-6/10) Last Admin: 07/08/18 10:05 Dose: 5 mg Pravastatin Sodium (Pravachol) 80 mg PO QHS [facility] Last Admin: 07/08/18 22:11 Dose: 80 mg Promethazine HCl (Phenergan) 25 mg IM Q6H PRN PRN PRN Reason: Breakthrough nausea/vomiting Sodium Chloride () 5 - 15 ml IV UD PRN PRN Reason: SALINE FLUSH Last Admin: 07/06/18 15:04 Dose: 10 ml Medical Necessity - Tobacco Use Smoking Status: Never smoker Assessment/Plan All Active Problems (Last Updated 07/07/18 @ 07:28 by Fan Otto MD) Acute cholecystitis (Acute) Lactic acid increased (Acute) Abdominal pain (Acute) GI (gastrointestinal bleed) (Acute) Pre-syncope (Acute) Pre-operative cardiovascular examination (Acute) S/P laparoscopic cholecystectomy (Acute) Hx laparoscopic cholecystectomy (Acute) 1. GI bleed 2/2 colon mass transfused 1 unit PRBC Hg stable 2. Colon mass status post right hemicolectomy with LAMBERTO on 07/07 3. Elevated troponins minimal likely d/t surgery and known CAD (demand mismatch) cardiology on consult: continue medical mgmt 4. near syncope likely 2/2 anemia 5. ABLA Hg went from 10.2 to 8.4 transfused 1 unit PRBC no need for additional units at this time monitor 6. CAD stable on ASA 7. VTE prophylaxis: SCDs Code Visit Inpatient E&M: 16665 Subs Hosp L2
--- NOTE | 2018-07-09 11:38 | PN_ITS ---
Patient Problems: Active and Suspected Problems (Last Reviewed 07/07/18 @ 07:28 by Fan Otto MD) GI (gastrointestinal bleed) (Acute) Pre-syncope (Acute) Pre-operative cardiovascular examination (Acute) Subjective: No flatus. + Belching. Increased abdominal distention. Vitals/I&O's: Vital Signs Temp Pulse Resp BP Pulse Ox 36.9 C 90 16 142/57 H 94 07/09/18 09:40 07/09/18 10:03 07/09/18 09:40 07/09/18 10:03 07/09/18 09:40 Oxygen Flow Rate (L/min) 2 Oxygen Delivery Method Room Air Weight: 119.2 kg Body Mass Index (BMI) 37.5 Finger Stick Blood Glucose 391 Intake and Output for Last 24 Hours 07/07/18 07/08/18 07/09/18 23:59 23:59 23:59 Intake Total 2851 / 2851 2466 / 2466 747 / 747 Output Total 1450 / 1450 450 / 450 Balance 2851 / 2851 1016 / 1016 297 / 297 General: Alert, No apparent distress HEENT: Atraumatic, Normocephalic Oral: Moist Mucosa, No Gingival or Mucosal Lesions/ Ulcerations Neck: No Nodes, Thyroid Normal Size and Texture Lungs: Clear to auscultation, Normal air movement, No rhonchi, No wheeze Cardiovascular: Regular rate, Regular Rhythm, Normal S1, Normal S2, No murmurs Abdomen: Soft, Non Tender, Hypoactive Bowel Sounds, Distended Extremities: No edema, No Calf Tenderness Psych/Mental Status: Normal Affect, Appropriate Laboratory Results 07/06/18 08:52: Carcinoembryonic Ag 3.3 07/08/18 11:47: POC Glucose 248 H 07/08/18 16:09: POC Glucose 191 H 07/08/18 22:04: POC Glucose 222 H 07/09/18 05:45: WBC 14.6 H, RBC 3.35 L, Hgb 9.0 L, Hct 28.3 L, MCV 84.5, MCH 26.9 L, MCHC 31.8 L, RDW 15.1 H, RDW Differential 46.7 H, Plt Count 207, MPV 11.2, Immature Gran % (Auto) 0.500, Neut % (Auto) 80.3 H, Lymph % (Auto) 7.6 L, [place] % (Auto) 11.4 H, Eos % (Auto) 0.1, Baso % (Auto) 0.1, Absolute Neuts (auto) 11.7 H, Absolute Lymphs (auto) 1.11, Total Counted Not Reportable, Differential Comment SCANNED, Diff Path Review May foll, Macrocytosis 1+ 07/09/18 05:45: Sodium 136, Potassium 4.3, Chloride 104, Carbon Dioxide 24.0, Anion Gap 8, BUN 25 H, Creatinine 1.62 H, Estim Creat Clear Calc 43.64, Est GFR (MDRD) Af Amer 55 L, Est GFR (MDRD) Non-Af 45 L, BUN/Creatinine Ratio 15.4, Glucose 219 H, Calcium 8.0 L 07/09/18 06:43: POC Glucose 200 H Current Medications Acetaminophen (Tylenol) 1,000 mg PO Q6 [facility] Last Admin: 07/09/18 06:45 Dose: 1,000 mg Al Hydroxide/Mg Hydroxide (Mylanta Ii) 30 ml PO Q6H PRN PRN PRN Reason: Gastric Burning Albuterol Sulfate (Ventolin Aerosols) 2.5 mg INHALATION Q2H PRN PRN PRN Reason: Shortness of Breath/Wheezing Amlodipine Besylate (Norvasc) 10 mg PO DAILY [facility] Last Admin: 07/09/18 10:03 Dose: 10 mg Aspirin (Aspirin, Baby) 81 mg PO DAILY@0800 [facility] Last Admin: 07/09/18 10:03 Dose: 81 mg Dextrose (D50w Syringe) 0 gm IV X1 PRN; Protocol PRN Reason: Hypoglycemia Docusate Sodium (Colace) 100 mg PO BID [facility] Last Admin: 07/09/18 10:03 Dose: 100 mg Enoxaparin Sodium (Lovenox) 40 mg SC DAILY [facility] Last Admin: 07/09/18 10:03 Dose: 40 mg Glucagon () 1 mg IM .X1 PRN PRN Reason: Hypoglycemia Guaifenesin (Robitussin) 20 ml PO Q4H PRN PRN PRN Reason: COUGH Pantoprazole Sodium 80 mg/ (Sodium Chloride) 100 mls @ 10 mls/hr CONT INF Q10H [facility] Last Admin: 07/09/18 06:45 Dose: 10 mls/hr Insulin Human Lispro (Humalog Kwikpen (Bkc)) 0 unit SQ ACHS [facility]; Protocol Last Admin: 07/09/18 06:46 Dose: 4 u Labetalol HCl (Trandate) 10 mg IV Q1H PRN PRN PRN Reason: SBP GREATER THAN 170 Last Admin: 07/07/18 23:19 Dose: 10 mg Lisinopril (Zestril) 10 mg PO BID [facility] Last Admin: 07/09/18 10:03 Dose: 10 mg Magnesium Hydroxide (Milk Of Magnesia) 30 ml PO DAILY PRN PRN PRN Reason: Constipation Magnesium Oxide (Mag-Ox 400) 400 mg PO DAILY PRN PRN PRN Reason: Constipation Melatonin (Melatonin) 3 mg PO QHS PRN PRN PRN Reason: INSOMNIA Metoprolol Tartrate (Lopressor (Beta Chasity)) 50 mg PO BID [facility] Morphine Sulfate () 1 - 3 mg IV Q2H PRN PRN PRN Reason: SEVERE PAIN (6-10/10) Last Admin: 07/07/18 21:35 Dose: 2 mg Nutritional Formula (Lactose Free) (Ensure Clear) 120 ml PO 4X/DAY [facility] Last Admin: 07/09/18 10:03 Dose: Not Given Ondansetron HCl (Zofran) 4 mg IV Q8H PRN PRN PRN Reason: NAUSEA/VOMITING Ondansetron HCl (Zofran Odt) 4 mg PO Q6H PRN PRN PRN Reason: NAUSEA Oxycodone HCl (Oxyir) 10 mg PO Q4H PRN PRN PRN Reason: Moderate Pain (4-6/10) Last Admin: 07/08/18 10:05 Dose: 5 mg Pravastatin Sodium (Pravachol) 80 mg PO QHS [facility] Last Admin: 07/08/18 22:11 Dose: 80 mg Promethazine HCl (Phenergan) 25 mg IM Q6H PRN PRN PRN Reason: Breakthrough nausea/vomiting Sodium Chloride () 5 - 15 ml IV UD PRN PRN Reason: SALINE FLUSH Last Admin: 07/06/18 15:04 Dose: 10 ml Medical Necessity - Tobacco Use Smoking Status: Never smoker Assessment/Plan All Active Problems (Last Updated 07/07/18 @ 07:28 by Fan Otto MD) Acute cholecystitis (Acute) Lactic acid increased (Acute) Abdominal pain (Acute) GI (gastrointestinal bleed) (Acute) Pre-syncope (Acute) Pre-operative cardiovascular examination (Acute) S/P laparoscopic cholecystectomy (Acute) Hx laparoscopic cholecystectomy (Acute) 1. GI bleed * 2/2 colon mass * transfused 1 unit PRBC * Hg stable 2. Colon mass * status post right hemicolectomy with LAMBERTO on 07/07 3. Elevated troponins * minimal * likely d/t surgery and known CAD (demand mismatch) * cardiology on consult: continue medical mgmt 4. near syncope * likely 2/2 anemia 5. ABLA * Hg went from 10.2 to 8.4 * transfused 1 unit PRBC * no need for additional units at this time * monitor 6. CAD * stable * on ASA 7. VTE prophylaxis: SCDs Code Visit Inpatient E&M: 21311 Subs Hosp L2
[2018-07-09 12:15] LABS: Bedside Glucose 280 mg/dL (70-110)
[2018-07-09] MEDS: guaiFENesin 10 ML UDC (200MG/10ML) 20 ML PO (16:52)
[2018-07-09 17:05] LABS: Bedside Glucose 189 mg/dL (70-110)
[2018-07-09] MEDS: Pravastatin 80 MG Tablet PO (21:53)
[2018-07-09] MEDS: Metoprolol Tartrate 50 MG Tablet PO (21:53)
[2018-07-09 22:35] LABS: Bedside Glucose 188 mg/dL (70-110)
[2018-07-10] VITALS (9 sets, daily range): BP systolic 108–133; BP diastolic 52–73; PULSE 67–82; RESP 18–20; TEMP 36.6–37.4; O2SAT 94–97
[2018-07-10 05:24] LABS: Absolute Lymphocyte Count 1.08 X10^3/ul (0.83-4.51); Absolute Neutrophil Count 7.7 X10^3/uL (2.0-7.7); Basophil# 0.02 X10^3/uL; Basophil% 0.2 % (0-1); Eosinophil# 0.21 X10^3/uL; Eosinophils% 2.1 % (0-5); Hematocrit 24.5 % (40-54); Hemoglobin 7.9 g/dl (13.0-16.5); Lymphocyte # 1.08 X10^3/ul (4.0); Lymphocyte % 10.6 % (19-41); Mean Corp Hgb Conc 32.2 g/gl (32-36); Mean Corpuscular Hgb 27.2 pg (27.0-32.0); Mean Corpuscular Volume 84.5 fL (80-94); Mean Platelet Vol. 10.9 fl (6.2-12.0); Monocyte# 1.14 X10^3/uL; Monocyte% 11.2 % (0-10); Neutrophil # 7.67 X10^3/uL (2.7-7.7); Platelet Count 202 K/mm3 (150-450); RBC Distribution Width CV 15.1 % (11.6-14.6); RBC Distribution Width SD 46.7 fl (35.1-43.9); White Blood Count 10.2 K/mm3 (4.4-11.0)
[2018-07-10 05:27] LABS: POSITIVE COUNT NO; POSITIVE DIFFERENTIAL NO; POSITIVE MORPHOLOGY NO
[2018-07-10 05:32] LABS: Anion Gap 8 (5-15); BUN 39 mg/dL (7-18); BUN/Creat Ratio 19.5 RATIO (10-20); Calcium,Total 7.7 mg/dL (8.5-10.1); Chloride 107 mmol/L (98-107); EST Glomerular Filtration Rate 35 mL/min (>60); Est Glom Filt Rate - Afr Amer 43 mL/min (>60); Estimated Creatinine Clearance 35.35 ml/min; Glucose 175 mg/dL (74-106); Sodium Level 140 mmol/L (136-145)
[2018-07-10] MEDS: Insulin Lispro 100 UNIT/ML INSULN.PEN SQ ×2 (06:28→12:51)
[2018-07-10 06:45] LABS: Bedside Glucose 170 mg/dL (70-110)
[2018-07-10] MEDS: Acetaminophen 500 MG Tablet 1000 MG PO (06:46)
--- NOTE | 2018-07-10 08:43 | PN.SURG_ITS ---
Patient Problems: Active and Suspected Problems (Last Reviewed 07/07/18 @ 07:28 by Fan Otto MD) GI (gastrointestinal bleed) (Acute) Pre-syncope (Acute) Pre-operative cardiovascular examination (Acute) Subjective: from a surgical standpoint, patient is doing surprisingly well, has minimal abdominal pain and is hungry tolerating liquids wants solid food passing flatus and had small movement, felt distended but after bowel movement felt improved ambulating well - Physical Exam General: Alert Oral: Moist Mucosa Neck: Supple Abdomen: Bowel Sounds Present - dressings intact, minimal seepage, Soft Vital Signs Temp Pulse Resp BP Pulse Ox 97.9 F 79 18 108/52 L 95 07/10/18 03:30 07/10/18 07:08 07/10/18 03:46 07/10/18 03:30 07/10/18 07:20 Oxygen Flow Rate (L/min) 2 Oxygen Delivery Method Room Air Weight: 118.4 kg Body Mass Index (BMI) 37.5 Finger Stick Blood Glucose 391 Intake and Output for Last 24 Hours 07/08/18 07/09/18 07/10/18 23:59 23:59 23:59 Intake Total 2466 / 2466 2362 / 2362 253 / 253 Output Total 1450 / 1450 1200 / 1200 Balance 1016 / 1016 1162 / 1162 253 / 253 Laboratory Tests Past 24 Hrs 07/10/18 07/10/18 05:03 05:03 WBC 10.2 RBC 2.90 L Hgb 7.9 L Hct 24.5 L MCV 84.5 MCH 27.2 MCHC 32.2 RDW 15.1 H RDW Differential 46.7 H Plt Count 202 MPV 10.9 Immature Gran % (Auto) 0.900 Neut % (Auto) 75.0 H Lymph % (Auto) 10.6 L [place] % (Auto) 11.2 H Eos % (Auto) 2.1 Baso % (Auto) 0.2 Absolute Neuts (auto) 7.7 Absolute Lymphs (auto) 1.08 Total Counted Not Reportable Sodium 140 Potassium 4.0 Chloride 107 Carbon Dioxide 25.0 Anion Gap 8 BUN 39 H Creatinine 2.00 H Estim Creat Clear Calc 35.35 Est GFR (MDRD) Af Amer 43 L Est GFR (MDRD) Non-Af 35 L BUN/Creatinine Ratio 19.5 Glucose 175 H Calcium 7.7 L POC Glucose 07/10/18 07/09/18 07/09/18 06:27 21:49 16:47 POC Glucose 170 H 188 H 189 H 07/09/18 11:51 POC Glucose 280 H Medical Necessity - Tobacco Use Smoking Status: Never smoker Assessment/Plan All Active Problems (Last Updated 07/07/18 @ 07:28 by Fan Otto MD) Acute cholecystitis (Acute) Lactic acid increased (Acute) Abdominal pain (Acute) GI (gastrointestinal bleed) (Acute) Pre-syncope (Acute) Pre-operative cardiovascular examination (Acute) S/P laparoscopic cholecystectomy (Acute) Hx laparoscopic cholecystectomy (Acute) IMPRESSION: POD#3 s/p laparoscopic extended right hemicolectomy PLAN: encourage ambulation encourage incentive spirometry Patient can be advanced to regular diet continue present therapy Patient counseled that he is at risk for pneumonia, etc. - given his medical morbidities and encouraged to do above From a surgical standpoint, patient can be discharged, pending internal medicine evaluation
--- NOTE | 2018-07-10 08:43 | PCM.DC.GS ---
Discharge Diet: No Restrictions - drink plenty of fluids avoid carbonated beverages for a few days Discharge Activity: Return to Normal Activity, May not drive while taking narcotic pain medications. Lifting Restrictions: no lifting greater than 20 pounds until further notice Call your doctor if your incision/area has: Continuous Slow Oozing, Foul Smelling Discharge Call your doctor if you observe: Fever of 101 or Higher Additional Dressing/Incision Instructions:: Leave dressings in place. May get areas wet, may shower, do not scrub in the area. Do not soak - no tub baths/swimming Allergies/Adverse Reactions: Allergies No Known Allergies Allergy (Verified 07/05/18 12:14) Medications to take at Discharge Amlodipine Besylate 10 mg PO DAILY 08/30/15 Garlic 2,000 mg PO DAILY 08/30/15 [place]-3 Fatty Acids/Fish Oil [[place] 3 1,000 mg Softgel] 2 ea PO BID 08/30/15 Aspirin [Aspirin, Baby] 81 mg PO DAILY@0800 09/23/15 Multivitamin [Daily Multiple Vitamin] 1 ea PO DAILY 09/23/15 Pravastatin [Pravachol] 80 mg PO QHS 11/03/15 cinnamon bark 500 mg capsule 1,000 mg PO BID ea 03/22/17 hydrochlorothiazide 25 mg tablet 25 mg PO QDAY 04/04/17 metformin 1,000 mg tablet 1,000 mg PO BID 04/04/17 lisinopril 40 mg tablet 40 mg PO DAILY 04/04/18 Primary Care Physician: Refugio Peterson DO [Primary Care Provider] - Test Results: Test results from this visit will be discussed in further detail at your follow-up appointment, if applicable. Please Follow Up With: Fan Otto MD - When: to be seen next week, can follow up with Felecia Rosen PA-C
[2018-07-10] MEDS: 0.9% Normal Saline 1,000 ML 150 ML IV (09:15)
[2018-07-10] MEDS: Metoprolol Tartrate 50 MG Tablet PO (09:15)
[2018-07-10] MEDS: Aspirin 81 MG TAB.CHEW PO (09:15)
[2018-07-10] MEDS: Lisinopril 10 MG Tablet PO (09:16)
[2018-07-10] MEDS: Enoxaparin 40 MG/0.4 ML Syringe SC (09:16)
[2018-07-10] MEDS: amLODIPine 10 MG Tablet PO (09:16)
[2018-07-10 09:28] LABS: Pathologist Review Reviewed
--- NOTE | 2018-07-10 10:47 | PCM.DC.SUM ---
Discharge Date and Diagnosis - Problem List Patient Problems: Active and Suspected Problems (Last Reviewed 07/07/18 @ 07:28 by Fan Otto MD) GI (gastrointestinal bleed) (Acute) Pre-syncope (Acute) Pre-operative cardiovascular examination (Acute) Date of Admission: 07/05/18 Date of Discharge: 07/10/18 - Primary Discharge Diagnosis Active and Suspected Problems (Last Reviewed 07/07/18 @ 07:28 by Fan Otto MD) GI (gastrointestinal bleed) (Acute) Pre-syncope (Acute) Pre-operative cardiovascular examination (Acute) 1. GI bleed 2/2 colon mass transfused 1 unit PRBC Hg stable 2. Colon mass status post right hemicolectomy with LAMBERTO on 07/07 improved diet advanced, if tolerates, then can be discharged home. 3. Elevated troponins minimal likely d/t surgery and known CAD (demand mismatch) cardiology on consult: continue medical mgmt 4. near syncope likely 2/2 anemia 5. ABLA Hg went from 10.2 to 7.9 transfused 1 unit PRBC no need for additional units at this time monitor outpt CBC 6. CAD stable on ASA 7. CLAIRE IVF hold HCTZ follow up BMP as outpt. - Secondary Discharge Diagnosis Chronic Problems (Last Reviewed 07/07/18 @ 07:28 by Fan Otto MD) Carotid artery stenosis (Chronic) per Carotid doppler done10/01/15 prior to CABG @ [facility]. Right common carotid 50-69% CAD (coronary artery disease) (Chronic) Aortic valve disease (Chronic) History of left heart catheterization (Chronic) 09/26/2015 @ [facility]>tsfer to [facility] for CABG History of non-ST elevation myocardial infarction (NSTEMI) (Chronic) Hyperlipidemia (Chronic) Obstructive sleep apnea (Chronic) Diabetes mellitus, type II (Chronic) Hypertension (Chronic) Hx of CABG (Chronic) CABG X 3: BLANCO to LAD, SVG to PDA and SVG to Ramus 09/29/2015 @ [facility] per Dr. Milton Atherosclerotic heart disease of [place] coronary artery without angina pectoris (Chronic) CABG X 3: BLANCO to LAD, SVG to PDA and SVG to Ramus 09/29/2015 @ [facility] per Dr. Milton Obesity (BMI 30-39.9) (Chronic) Hospital Course and Treatment Imaging Results: Clinical Impression(s) from Imaging Studies Chest X-Ray 07/06/18 08:39 IMPRESSION: Stable appearance of the chest. No acute finding. Electronically Signed: Red Simon MD at 15:27 EDT , Service support , KUB X-Ray 07/06/18 14:20 IMPRESSION: No acute abnormality. Electronically Signed: Red Simon MD at 14:42 EDT , Service support , Fan Otto MD: general surgery Nirav Corado MD: cardiology Operations: - - Laparoscopic extended right hemicolectomy, laparoscopic lysis of adhesions Procedures: Colonoscopy, EGD Summary of Care Provided: The patient is a 67 year old M presents with blood in stool. Patient was admitted and seen by general surgery who underwent a colonoscopy and EGD on the . Colonoscopy showed likely malignant tumor in the mid ascending colon that was biopsied. Biopsy results appear to be a serrated adenoma. On the , patient underwent a laparoscopic partial hemicolectomy. Patient was admitted to the ICU for closer monitoring. Patient did have some trivial troponin elevations in 7, but patient was a otherwise asymptomatic. Cardiology fellows mismatch demand issue and just recommend medical management. Patient did receive a transfusion of 1 packed red blood cells while he was here. Today, the patient's creatinine bumped up to 2 from 1.68 the patient is otherwise doing well he is bowel function has improved and is been having bowel movements. Patient's diet be advanced to a carb controlled diet if he tolerates that well then he will be discharged. Is recommended patient that he follow-up with his primary care doctor, and to have outpatient labs for monitoring his hemoglobin as well as his creatinine. [] Patient Problems: Active and Suspected Problems (Last Reviewed 07/07/18 @ 07:28 by Fan Otto MD) GI (gastrointestinal bleed) (Acute) Pre-syncope (Acute) Pre-operative cardiovascular examination (Acute) - Physical Exam General: Alert, No apparent distress HEENT: Atraumatic, Normocephalic Oral: Moist Mucosa Lungs: Clear to auscultation, Normal air movement, No rhonchi, No wheeze Cardiovascular: Regular rate, Regular Rhythm, Normal S1, Normal S2, No murmurs Abdomen: Bowel Sounds Present, Soft, Non Tender, Non-Distended, Hyperactive Bowel Sounds, Obese Extremities: No edema, No Calf Tenderness Skin: No rashes, No breakdown Psych/Mental Status: Normal Affect, Appropriate Vital Signs Temp Pulse Resp BP Pulse Ox 36.6 C 82 18 108/52 L 95 07/10/18 03:30 07/10/18 09:15 07/10/18 03:46 07/10/18 03:30 07/10/18 07:20 Oxygen Flow Rate (L/min) 2 Oxygen Delivery Method Room Air Weight: 118.4 kg Body Mass Index (BMI) 37.5 Finger Stick Blood Glucose 391 Intake and Output for Last 24 Hours 07/08/18 07/09/18 07/10/18 23:59 23:59 23:59 Intake Total 2466 / 2466 2362 / 2362 253 / 253 Output Total 1450 / 1450 1200 / 1200 Balance 1016 / 1016 1162 / 1162 253 / 253 Laboratory Tests Past 24 Hrs 07/09/18 07/10/18 07/10/18 05:45 05:03 05:03 WBC 10.2 RBC 2.90 L Hgb 7.9 L Hct 24.5 L MCV 84.5 MCH 27.2 MCHC 32.2 RDW 15.1 H RDW Differential 46.7 H Plt Count 202 MPV 10.9 Immature Gran % (Auto) 0.900 Neut % (Auto) 75.0 H Lymph % (Auto) 10.6 L [place] % (Auto) 11.2 H Eos % (Auto) 2.1 Baso % (Auto) 0.2 Absolute Neuts (auto) 7.7 Absolute Lymphs (auto) 1.08 Total Counted Not Reportable Diff Path Review Reviewed Sodium 140 Potassium 4.0 Chloride 107 Carbon Dioxide 25.0 Anion Gap 8 BUN 39 H Creatinine 2.00 H Estim Creat Clear Calc 35.35 Est GFR (MDRD) Af Amer 43 L Est GFR (MDRD) Non-Af 35 L BUN/Creatinine Ratio 19.5 Glucose 175 H Calcium 7.7 L POC Glucose 07/10/18 07/09/18 07/09/18 06:27 21:49 16:47 POC Glucose 170 H 188 H 189 H 07/09/18 11:51 POC Glucose 280 H Discharge Diet: No Restrictions Discharge Activity: Return to Normal Activity, May not drive while taking narcotic pain medications. Call your doctor if your incision/area has: Continuous Slow Oozing, Foul Smelling Discharge Call your doctor if you observe: Fever of 101 or Higher Additional Dressing/Incision Instructions:: Leave dressings in place. May get areas wet, may shower, do not scrub in the area. Do not soak - no tub baths/swimming Home Medications: Medications to take at Discharge Amlodipine Besylate 10 mg PO DAILY 08/30/15 Garlic 2,000 mg PO DAILY 08/30/15 [place]-3 Fatty Acids/Fish Oil [[place] 3 1,000 mg Softgel] 2 ea PO BID 08/30/15 Aspirin [Aspirin, Baby] 81 mg PO DAILY@0800 09/23/15 Multivitamin [Daily Multiple Vitamin] 1 ea PO DAILY 09/23/15 Pravastatin [Pravachol] 80 mg PO QHS 11/03/15 cinnamon bark 500 mg capsule 1,000 mg PO BID ea 03/22/17 metformin 1,000 mg tablet 1,000 mg PO BID 04/04/17 Acetaminophen [Tylenol] 1,000 mg PO Q8H PRN tablet 07/10/18 Lisinopril 20 mg PO DAILY #0 07/10/18 Primary Care Physician: Refugio Peterson DO [Primary Care Provider] - Please Follow Up With: Fan Otto MD - When: to be seen next week, can follow up with Felecia Rosen PA-C Disposition: Home Minutes spent on discharge:: 35 Patient Condition:: Good Medical Necessity - Tobacco Use Smoking Status: Never smoker Meaningful Use Info Meaningful Use Diagnoses (Choose all that apply): None applicable Code Visit Inpatient E&M: 04688 Disch Hosp
--- NOTE | 2018-07-10 10:52 | DS.PCM_ITS ---
Discharge Date and Diagnosis - Problem List Patient Problems: Active and Suspected Problems (Last Reviewed 07/07/18 @ 07:28 by Fan Otto MD) GI (gastrointestinal bleed) (Acute) Pre-syncope (Acute) Pre-operative cardiovascular examination (Acute) Date of Admission: 07/05/18 Date of Discharge: 07/10/18 - Primary Discharge Diagnosis Active and Suspected Problems (Last Reviewed 07/07/18 @ 07:28 by Fan Otto MD) GI (gastrointestinal bleed) (Acute) Pre-syncope (Acute) Pre-operative cardiovascular examination (Acute) 1. GI bleed * 2/2 colon mass * transfused 1 unit PRBC * Hg stable 2. Colon mass * status post right hemicolectomy with LAMBERTO on 07/07 * improved * diet advanced, if tolerates, then can be discharged home. 3. Elevated troponins * minimal * likely d/t surgery and known CAD (demand mismatch) * cardiology on consult: continue medical mgmt 4. near syncope * likely 2/2 anemia 5. ABLA * Hg went from 10.2 to 7.9 * transfused 1 unit PRBC * no need for additional units at this time * monitor * outpt CBC 6. CAD * stable * on ASA 7. CLAIRE * IVF * hold HCTZ * follow up BMP as outpt. - Secondary Discharge Diagnosis Chronic Problems (Last Reviewed 07/07/18 @ 07:28 by Fan Otto MD) Carotid artery stenosis (Chronic) per Carotid doppler done10/01/15 prior to CABG @ [facility]. Right common carotid 50-69% CAD (coronary artery disease) (Chronic) Aortic valve disease (Chronic) History of left heart catheterization (Chronic) 09/26/2015 @ [facility]>tsfer to [facility] for CABG History of non-ST elevation myocardial infarction (NSTEMI) (Chronic) Hyperlipidemia (Chronic) Obstructive sleep apnea (Chronic) Diabetes mellitus, type II (Chronic) Hypertension (Chronic) Hx of CABG (Chronic) CABG X 3: BLANCO to LAD, SVG to PDA and SVG to Ramus 09/29/2015 @ [facility] per Dr. Milton Atherosclerotic heart disease of [place] coronary artery without angina pectoris (Chronic) CABG X 3: BLANCO to LAD, SVG to PDA and SVG to Ramus 09/29/2015 @ [facility] per Dr. Milton Obesity (BMI 30-39.9) (Chronic) Hospital Course and Treatment Imaging Results: Clinical Impression(s) from Imaging Studies Chest X-Ray 07/06/18 08:39 IMPRESSION: Stable appearance of the chest. No acute finding. Electronically Signed: Red Simon MD at 15:27 EDT , Service support , KUB X-Ray 07/06/18 14:20 IMPRESSION: No acute abnormality. Electronically Signed: Red Simno MD at 14:42 EDT , Service support , Fan Otto MD: general surgery Nirav Corado MD: cardiology Operations: - - Laparoscopic extended right hemicolectomy, laparoscopic lysis of adhesions Procedures: Colonoscopy, EGD Summary of Care Provided: The patient is a 67 year old M presents with blood in stool. Patient was admi tted and seen by general surgery who underwent a colonoscopy and EGD on the . Colonoscopy showed likely malignant tumor in the mid ascending colon that was biopsied. Biopsy results appear to be a serrated adenoma. On the , patient underwent a laparoscopic partial hemicolectomy. Patient was admitted to the ICU for closer monitoring. Patient did have some trivial troponin elevations in 7, but patient was a otherwise asymptomatic. Cardiology fellows mismatch demand issue and just recommend medical management. Patient did receive a transfusion of 1 packed red blood cells while he was here. Today, the patient's creatinine bumped up to 2 from 1.68 the patient is otherwise doing well he is bowel function has improved and is been having bowel movements. Patient's diet be advanced to a carb controlled diet if he tolerates that well then he will be discharged. Is recommended patient that he follow-up with his primary care doctor, and to have outpatient labs for monitoring his hemoglobin as well as his creatinine. [] Patient Problems: Active and Suspected Problems (Last Reviewed 07/07/18 @ 07:28 by Fan Otto MD) GI (gastrointestinal bleed) (Acute) Pre-syncope (Acute) Pre-operative cardiovascular examination (Acute) - Physical Exam General: Alert, No apparent distress HEENT: Atraumatic, Normocephalic Oral: Moist Mucosa Lungs: Clear to auscultation, Normal air movement, No rhonchi, No wheeze Cardiovascular: Regular rate, Regular Rhythm, Normal S1, Normal S2, No murmurs Abdomen: Bowel Sounds Present, Soft, Non Tender, Non-Distended, Hyperactive Bowel Sounds, Obese Extremities: No edema, No Calf Tenderness Skin: No rashes, No breakdown Psych/Mental Status: Normal Affect, Appropriate Vital Signs Temp Pulse Resp BP Pulse Ox 36.6 C 82 18 108/52 L 95 07/10/18 03:30 07/10/18 09:15 07/10/18 03:46 07/10/18 03:30 07/10/18 07:20 Oxygen Flow Rate (L/min) 2 Oxygen Delivery Method Room Air Weight: 118.4 kg Body Mass Index (BMI) 37.5 Finger Stick Blood Glucose 391 Intake and Output for Last 24 Hours 07/08/18 07/09/18 07/10/18 23:59 23:59 23:59 Intake Total 2466 / 2466 2362 / 2362 253 / 253 Output Total 1450 / 1450 1200 / 1200 Balance 1016 / 1016 1162 / 1162 253 / 253 Laboratory Tests Past 24 Hrs 07/09/18 07/10/18 07/10/18 05:45 05:03 05:03 WBC 10.2 RBC 2.90 L Hgb 7.9 L Hct 24.5 L MCV 84.5 MCH 27.2 MCHC 32.2 RDW 15.1 H RDW Differential 46.7 H Plt Count 202 MPV 10.9 Immature Gran % (Auto) 0.900 Neut % (Auto) 75.0 H Lymph % (Auto) 10.6 L Hayes % (Auto) 11.2 H Eos % (Auto) 2.1 Baso % (Auto) 0.2 Absolute Neuts (auto) 7.7 Absolute Lymphs (auto) 1.08 Total Counted Not Reportable Diff Path Review Reviewed Sodium 140 Potassium 4.0 Chloride 107 Carbon Dioxide 25.0 Anion Gap 8 BUN 39 H Creatinine 2.00 H Estim Creat Clear Calc 35.35 Est GFR (MDRD) Af Amer 43 L Est GFR (MDRD) Non-Af 35 L BUN/Creatinine Ratio 19.5 Glucose 175 H Calcium 7.7 L POC Glucose 05/04/2907/09/18 07/09/18 06:27 21:49 16:47 POC Glucose 170 H 188 H 189 H 07/09/18 11:51 POC Glucose 280 H Discharge Diet: No Restrictions Discharge Activity: Return to Normal Activity, May not drive while taking narcotic pain medications. Call your doctor if your incision/area has: Continuous Slow Oozing, Foul Smelling Discharge Call your doctor if you observe: Fever of 101 or Higher Additional Dressing/Incision Instructions:: Leave dressings in place. May get areas wet, may shower, do not scrub in the area. Do not soak - no tub baths/swimming Home Medications: Medications to take at Discharge Amlodipine Besylate 10 mg PO DAILY 08/30/15 Garlic 2,000 mg PO DAILY 08/30/15 Mobile-3 Fatty Acids/Fish Oil [Mobile 3 1,000 mg Softgel] 2 ea PO BID 08/30/15 Aspirin [Aspirin, Baby] 81 mg PO DAILY@0800 09/23/15 Multivitamin [Daily Multiple Vitamin] 1 ea PO DAILY 09/23/15 Pravastatin [Pravachol] 80 mg PO QHS 11/03/15 cinnamon bark 500 mg capsule 1,000 mg PO BID ea 03/22/17 metformin 1,000 mg tablet 1,000 mg PO BID 04/04/17 Acetaminophen [Tylenol] 1,000 mg PO Q8H PRN tablet 07/10/18 Lisinopril 20 mg PO DAILY #0 07/10/18 Primary Care Physician: Refugio Peterson DO [Primary Care Provider] - Please Follow Up With: Fan Otto MD - When: to be seen next week, can follow up with Felecia Rosen PA-C Disposition: Home Minutes spent on discharge:: 35 Patient Condition:: Good Medical Necessity - Tobacco Use Smoking Status: Never smoker Meaningful Use Info Meaningful Use Diagnoses (Choose all that apply): None applicable Code Visit Inpatient E&M: 31539 Disch Hosp
[2018-07-10 11:31] LABS: Bedside Glucose 276 mg/dL (70-110)
--- NOTE | 2018-07-11 13:44 | CASEMGMT ---
CINDY TERRY Discharge Follow-Up Phone Call. Bridget: Brittney Strata: 3 Discharge Date: 07/10/18 Adm Dx: GIB, pre-syncope. Call to pt to inquire about how he has been doing since being discharged from the hospital. Pt stated, well I was wore out yesterday from such a long day, but I'm starting to recover. Pt denies having any questions about the discharge instructions, medications, or follow-up appts. Pt states he has an appt with Dr Peterson next week, he thinks on the . He has not made an appt with Dr Otto yet, but plans to do so when he returns home. Offered to provide Dr Henry phone number but he states he knows he saw it on the discharge papers and he will get it from there. Pt thanked CINDY TERRY for the call. CINDY TERRY thanked pt for choosing [facility]. Abhilash ALBERTO RN, CM
== END 2018-07-10 15:04 | disposition home or self-care (01) | DRG 330 ==
LOC: ED 14:22 → PCU 15:00 → ICU 07-07 16:14 → PCU 07-08 15:26
PROVIDERS: Anesthesiology; Nurse Practitioner Family; Surgery; Admitting Provider Internal Medicine; Emergency Provider Emergency Medicine; Family Provider Family Medicine; PCP Family Medicine
PROC: 0DJD8ZZ Inspection of Lower Intestinal Tract, Via Natural or Artificial Opening Endoscopic (ICD-10-PCS; CPT 45378; principal; 2018-07-06 07:55)
PROC: 30233N1 Transfusion of Nonautologous Red Blood Cells into Peripheral Vein, Percutaneous Approach (ICD-10-PCS; CPT 44205; principal; 2018-07-07 13:40)
DX: C18.3 Malignant neoplasm of hepatic flexure (principal); C18.0 Malignant neoplasm of cecum; D62 Acute posthemorrhagic anemia; N17.9 Acute kidney failure, unspecified; I25.10 Atherosclerotic heart disease of native coronary artery without angina pectoris; E78.5 Hyperlipidemia, unspecified; E11.9 Type 2 diabetes mellitus without complications; E66.9 Obesity, unspecified; I10 Essential (primary) hypertension; K63.5 Polyp of colon; K66.0 Peritoneal adhesions (postprocedural) (postinfection); G47.33 Obstructive sleep apnea (adult) (pediatric); Z68.37 Body mass index [BMI] 37.0-37.9, adult; Z95.1 Presence of aortocoronary bypass graft; Z79.84 Long term (current) use of oral hypoglycemic drugs; Z90.49 Acquired absence of other specified parts of digestive tract; I25.2 Old myocardial infarction
CPT/HCPCS: 36415; 71046; 74018; 80048; 80053; 82274; 82378; 82962; 83735; 84484; 85014; 85018; 85025; 85027; 85610; 85730; 86850; 86900; 86920; 86922; 88302; 88305; 88309; 88341; 88342; 93005; 93306; 99285; J7030; J7040; J7120; P9016; Q9957; A4216; A4648; C8929; J3490

== ENCOUNTER → 2018-07-16 09:13 | Outpatient (CLI) | payer MEDICARE, OTHER, SELFPAY ==
[2018-07-07 13:11] VITALS: BMI 37.5
[2018-07-16 12:49] LABS: Anion Gap 6 (5-15); BUN 20 mg/dL (7-18); BUN/Creat Ratio 16.4 RATIO (10-20); Calcium,Total 8.9 mg/dL (8.5-10.1); Chloride 107 mmol/L (98-107); Creatinine, Serum 1.22 mg/dL (0.70-1.30); EST Glomerular Filtration Rate 63 mL/min (>60); Est Glom Filt Rate - Afr Amer 76 mL/min (>60); Glucose 152 mg/dL (74-106); Potassium 4.8 mmol/L (3.5-5.1); Sodium Level 139 mmol/L (136-145)
[2018-07-16 12:50] LABS: Absolute Lymphocyte Count 1.03 X10^3/ul (0.83-4.51); Absolute Neutrophil Count 7.6 X10^3/uL (2.0-7.7); Basophil# 0.03 X10^3/uL; Basophil% 0.3 % (0-1); Eosinophil# 0.19 X10^3/uL; Eosinophils% 1.9 % (0-5); Hematocrit 26.4 % (40-54); Hemoglobin 8.2 g/dl (13.0-16.5); Lymphocyte # 1.03 X10^3/ul (4.0); Lymphocyte % 10.1 % (19-41); Mean Corp Hgb Conc 31.1 g/gl (32-36); Mean Corpuscular Volume 86.8 fL (80-94); Mean Platelet Vol. 10.7 fl (6.2-12.0); Monocyte# 0.98 X10^3/uL; Monocyte% 9.6 % (0-10); Neutrophil # 7.64 X10^3/uL (2.7-7.7); Neutrophil % 75.2 % (47-70); POSITIVE COUNT YES; POSITIVE DIFFERENTIAL NO; POSITIVE MORPHOLOGY YES; Platelet Count 435 K/mm3 (150-450); RBC Distribution Width SD 47.6 fl (35.1-43.9); Red Blood Count 3.04 M/mm3 (4.6-6.2); White Blood Count 10.2 K/mm3 (4.4-11.0)
[2018-07-17 14:00] LABS: Pathologist Review Reviewed
== END ==
PROVIDERS: Family Provider Family Medicine; PCP Family Medicine
DX: D64.9 Anemia, unspecified (principal); N17.9 Acute kidney failure, unspecified
CPT/HCPCS: 36415; 80048; 85025

== ENCOUNTER → 2018-12-16 | Outpatient (CLI) | payer MEDICARE, OTHER, SELFPAY ==
[2018-07-07 13:11] VITALS: BMI 37.5
[2018-12-16 15:21] LABS: Absolute Lymphocyte Count 1.04 X10^3/uL (0.83-4.51); Absolute Neutrophil Count 4.3 X10^3/uL (2.0-7.7); Basophil# 0.06 X10^3/uL; Basophil% 0.9 % (0-1); Eosinophil# 0.33 X10^3/uL; Eosinophils% 5.1 % (0-5); Hematocrit 43.6 % (40-54); Hemoglobin 13.5 g/dL (13.0-16.5); Lymphocyte # 1.04 X10^3/ul (4.0); Lymphocyte % 15.9 % (19-41); Mean Corpuscular Hgb 27.2 pg (27.0-32.0); Mean Corpuscular Volume 87.7 fL (80-94); Mean Platelet Vol. 11.7 fl (6.2-12.0); Monocyte# 0.69 X10^3/uL; Monocyte% 10.6 % (0-10); NRBC Flagged by Analyzer 0 % (0-5); Neutrophil # 4.34 X10^3/uL (2.7-7.7); Neutrophil % 66.4 % (47-70); Platelet Count 184 K/mm3 (150-450); RBC Distribution Width CV 14.5 % (11.6-14.6); RBC Distribution Width SD 45.9 fl (35.1-43.9); Red Blood Count 4.97 M/mm3 (4.6-6.2); White Blood Count 6.5 K/mm3 (4.4-11.0)
[2018-12-16 15:48] LABS: Vitamin D,25 Hydroxy 17.9 ng/mL (29.95-100.01)
[2018-12-16 16:06] LABS: ALB/GLOB Ratio 0.9 RATIO (0.9-2.4); AST(SGOT) 20 U/L (15-37); Alanine Aminotransfer ALT/SGPT 36 U/L (16-61); Albumin, Serum 3.5 g/dL (3.2-5.0); Alkaline Phosphatase 91 U/L (45-117); Anion Gap 10 (5-15); BUN 31 mg/dL (7-18); BUN/Creat Ratio 26.7 RATIO (10-20); Calcium,Total 9.4 mg/dL (8.5-10.1); Chloride 101 mmol/L (98-107); Cholesterol 291 mg/dL (200); Creatinine, Serum 1.16 mg/dL (0.70-1.30); EST Glomerular Filtration Rate 66 mL/min (>60); Est Glom Filt Rate - Afr Amer 80 mL/min (>60); Ferritin 26 ng/mL (26-388); Glucose 184 mg/dL (74-106); High Density Lipoprotein 42 mg/dL; Iron 63 ug/dL (65-175); Potassium 4.7 mmol/L (3.5-5.1); Protein, Total 7.5 g/dL (6.4-8.2); Sodium Level 138 mmol/L (136-145); Triglycerides 768 mg/dL
== END | disposition home or self-care (01) ==
LOC: LAB.FUTURE 10:56
PROVIDERS: Family Provider Family Medicine; PCP Family Medicine; Visit Provider Family Medicine
DX: I10 Essential (primary) hypertension (principal); D64.9 Anemia, unspecified; E55.9 Vitamin D deficiency, unspecified; E78.5 Hyperlipidemia, unspecified
CPT/HCPCS: 36415; 80053; 80061; 82306; 82728; 83540; 85025

== ENCOUNTER → 2019-03-17 10:30 | Outpatient (CLI) | payer MEDICARE, OTHER, SELFPAY ==
[2017-04-04 10:42] VITALS: BMI 36.1
[2018-07-07 13:11] VITALS: BMI 37.5
[2019-03-17 12:16] LABS: Absolute Lymphocyte Count 1.01 X10^3/uL (0.83-4.51); Absolute Neutrophil Count 4.3 X10^3/uL (2.0-7.7); Basophil# 0.05 X10^3/uL; Basophil% 0.8 % (0-1); Eosinophil# 0.24 X10^3/uL; Eosinophils% 3.9 % (0-5); Hematocrit 40.9 % (40-54); Hemoglobin 13.2 g/dL (13.0-16.5); Lymphocyte # 1.01 X10^3/ul (4.0); Lymphocyte % 16.3 % (19-41); Mean Corp Hgb Conc 32.3 g/dL (32-36); Mean Corpuscular Hgb 28.7 pg (27.0-32.0); Mean Corpuscular Volume 88.9 fL (80-94); Monocyte# 0.57 X10^3/uL; Monocyte% 9.2 % (0-10); NRBC Flagged by Analyzer 0 % (0-5); Neutrophil # 4.25 X10^3/uL (2.7-7.7); Neutrophil % 68.4 % (47-70); Platelet Count 191 K/mm3 (150-450); RBC Distribution Width CV 12.9 % (11.6-14.6); RBC Distribution Width SD 41.9 fl (35.1-43.9); White Blood Count 6.2 K/mm3 (4.4-11.0)
[2019-03-17 13:06] LABS: Ferritin 22 ng/mL (26-388); Iron 42 ug/dL (65-175)
== END ==
PROVIDERS: Family Provider Family Medicine; PCP Family Medicine; Visit Provider Family Medicine
DX: D64.9 Anemia, unspecified (principal); E11.59 Type 2 diabetes mellitus with other circulatory complications; I10 Essential (primary) hypertension; E78.5 Hyperlipidemia, unspecified; I25.10 Atherosclerotic heart disease of native coronary artery without angina pectoris
CPT/HCPCS: 36415; 82728; 83540

== ENCOUNTER → 2019-04-02 10:43 | Outpatient (CLI) | payer MEDICARE, OTHER, SELFPAY ==
[2019-04-02 09:48] VITALS: BMI 39.5
[2019-04-02 11:40] LABS: AST(SGOT) 18 U/L (15-37); Alanine Aminotransfer ALT/SGPT 35 U/L (16-61); Albumin, Serum 3.6 g/dL (3.2-5.0); Alkaline Phosphatase 86 U/L (45-117); Bilirubin, Direct 0.13 mg/dL (0.00-0.30); Cholesterol 269 mg/dL (200); Globulin 3.9 g/dL (2.2-4.2); High Density Lipoprotein 39 mg/dL; Protein, Total 7.5 g/dL (6.4-8.2); Triglycerides 687 mg/dL
== END ==
LOC: LAB 10:47
PROVIDERS: PCP Family Medicine; Referring Provider Internal Medicine Cardiovascular Disease; Visit Provider Internal Medicine Cardiovascular Disease
DX: E78.1 Pure hyperglyceridemia (principal); I25.10 Atherosclerotic heart disease of native coronary artery without angina pectoris
CPT/HCPCS: 36415; 80061; 80076

== ENCOUNTER → 2019-08-19 | Outpatient (CLI) | payer MEDICARE, OTHER, SELFPAY ==
[2019-04-02 09:48] VITALS: BMI 39.5
[2019-08-19 15:35] LABS: Absolute Neutrophil Count 4.3 X10^3/uL (2.0-7.7); Basophil# 0.06 X10^3/uL; Basophil% 0.9 % (0-1); Eosinophil# 0.25 X10^3/uL; Eosinophils% 3.9 % (0-5); Hemoglobin 13.7 g/dL (13.0-16.5); Lymphocyte % 15.7 % (19-41); Mean Corp Hgb Conc 31.9 g/dL (32-36); Mean Corpuscular Hgb 29.4 pg (27.0-32.0); Mean Corpuscular Volume 92.3 fL (80-94); Mean Platelet Vol. 12.3 fl (6.2-12.0); Monocyte# 0.68 X10^3/uL; Monocyte% 10.7 % (0-10); NRBC Flagged by Analyzer 0 % (0-5); Neutrophil # 4.31 X10^3/uL (2.7-7.7); Neutrophil % 67.7 % (47-70); Platelet Count 197 K/mm3 (150-450); RBC Distribution Width CV 13.2 % (11.6-14.6); RBC Distribution Width SD 44.5 fl (35.1-43.9); Red Blood Count 4.66 M/mm3 (4.6-6.2); White Blood Count 6.4 K/mm3 (4.4-11.0)
[2019-08-19 15:43] LABS: Vitamin B12 679 pg/mL (211-911)
[2019-08-19 15:47] LABS: Anion Gap 10 (5-15); BUN 36 mg/dL (7-18); BUN/Creat Ratio 27.7 RATIO (10-20); Calcium,Total 9.8 mg/dL (8.5-10.1); Chloride 102 mmol/L (98-107); EST Glomerular Filtration Rate 58 mL/min (>60); Est Glom Filt Rate - Afr Amer 70 mL/min (>60); Ferritin 39 ng/mL (26-388); Glucose 154 mg/dL (74-106); Iron 59 ug/dL (65-175); Potassium 4.3 mmol/L (3.5-5.1); Sodium Level 138 mmol/L (136-145)
== END | disposition home or self-care (01) ==
LOC: BFHLAB 12:04
PROVIDERS: PCP Family Medicine; Visit Provider Family Medicine
DX: E61.1 Iron deficiency (principal); I10 Essential (primary) hypertension; R53.83 Other fatigue
CPT/HCPCS: 36415; 80048; 82607; 82728; 83540; 85025

== ENCOUNTER → 2019-11-20 | Outpatient (CLI) | payer MEDICARE, OTHER, SELFPAY ==
[2019-09-29 11:08] VITALS: BMI 39.5
[2019-11-20 13:21] LABS: ALB/GLOB Ratio 0.9 RATIO (0.9-2.4); AST(SGOT) 25 U/L (15-37); Alanine Aminotransfer ALT/SGPT 49 U/L (16-61); Albumin, Serum 3.7 g/dL (3.2-5.0); Alkaline Phosphatase 93 U/L (45-117); Anion Gap 5 (5-15); BUN 26 mg/dL (7-18); BUN/Creat Ratio 21.1 RATIO (10-20); Calcium,Total 9.7 mg/dL (8.5-10.1); Chloride 105 mmol/L (98-107); Creatinine, Serum 1.23 mg/dL (0.70-1.30); EST Glomerular Filtration Rate 62 mL/min (>60); Est Glom Filt Rate - Afr Amer 75 mL/min (>60); Globulin 3.9 g/dL (2.2-4.2); Glucose 187 mg/dL (74-106); Protein, Total 7.6 g/dL (6.4-8.2); Sodium Level 139 mmol/L (136-145); Thyroid Stim Hormone (TSH) 1.14 uIU/mL (0.358-3.74)
== END | disposition home or self-care (01) ==
LOC: BFHLAB 11:05
PROVIDERS: PCP Family Medicine; Visit Provider Family Medicine
DX: I10 Essential (primary) hypertension (principal); I49.8 Other specified cardiac arrhythmias
CPT/HCPCS: 36415; 80053; 83735; 84443

== ENCOUNTER → 2019-12-08 | Outpatient (CLI) | payer MEDICARE, OTHER, SELFPAY ==
[2019-09-29 11:08] VITALS: BMI 39.5
--- NOTE | 2019-12-08 08:22 | ECHOCS_ITS ---
Reason For Study: SOB, CAD Procedure This was a 2D Doppler, Color Flow transthoracic echocardiogram. The study was technically difficult. Contrast injection was performed. Exam performed in department. Left Ventricle Normal LV size. Left ventricular systolic function is normal. The estimated ejection fraction is 75 %. No regional wall motion abnormalities noted. Right Ventricle Normal RV size. Normal systolic function. Atria Normal left atrium. Normal right atrium. Mitral Valve Normal mitral valve. Tricuspid Valve Normal tricuspid valve. Aortic Valve Trisinus/trileaflet aortic valve. Mild focal aortic valve calcification. Pulmonic Valve Normal pulmonic valve. Great Vessels Normal aortic root. The pulmonary artery is normal size. Normal inferior vena cava. Pericardium/Pleural No pericardial effusion. Medication Diluted definity 3.0ml given slow IV push to enhance endocardial definition. MMode/2D Measurements & Calculations LVIDd: 3.9 cm IVSd: 1.5 cm LVOT diam: 2.0 cm LVIDs: 2.5 cm LVPWd: 1.3 cm RVDd: 3.8 cm FS: 35.0 % LVOT area: 3.2 cm2 Ao root diam: 3.3 cm LAV(MOD-bp): 75.6 ml LVAd ap4: 40.1 cm2 LAV(MOD-bp) Indexed: 32.8 ml/m2 EDV(MOD-sp4): 139.5 ml LAV(MOD-sp2): 77.1 ml EDV(sp4-el): 142.4 ml LAV(MOD-sp4): 71.1 ml LVAs ap4: 17.7 cm2 ESV(MOD-sp4): 35.7 ml ESV(sp4-el): 35.7 ml EF(MOD-sp4): 74.4 % EF(sp4-el): 74.9 % SV(MOD-sp4): 103.8 ml SV(sp4-el): 106.7 ml Aortic Valve Planimetry: 1.6 cm2 LA A4 area: 24.0 cm2 LA dimension(2D): 4.6 cm RA A4 area: 14.2 cm2 Time Measurements MV dec time: 0.17 sec Doppler Measurements & Calculations MV E max rashid: 131.5 cm/sec Lat Peak E' Rashid: 2.7 cm/sec Med Peak E' Rashid: 4.0 cm/sec MV A max rashid: 43.3 cm/sec E/E' lat: 48.5 E/E' med: 32.9 MV E/A: 3.0 Ao V2 max: 353.8 cm/sec AI max rashid: 306.6 cm/sec LV V1 max: 168.6 cm/sec Ao max P.1 mmHg AI max P.7 mmHg LV V1 max P.4 mmHg Ao V2 mean: 252.7 cm/sec AI dec slope: 188.3 cm/sec2 LV V1 mean P.1 mmHg Ao mean P.0 mmHg AI P1/2t: 477.0 msec LV V1 mean: 124.3 cm/sec Ao V2 VTI: 69.3 cm LV V1 VTI: 34.8 cm KI(I,D): 1.6 cm2 KI(V,D): 1.5 cm2 SV(LVOT): 112.0 ml PA V2 max: 136.8 cm/sec PI end-d rashid: 113.6 cm/sec TR max rashid: 320.6 cm/sec TR max P.1 mmHg Interpretation Summary Normal LV size. Left ventricular systolic function is normal. The estimated ejection fraction is 75 %. Contrast injection was performed. Compared to previous study, the left ventricular systolic function has improved.. Ordering Physician: Vincent Gonzalez Referring Physician: Refugio Peterson Performed By: Eileen Lord, BRAULIO, RVT
--- NOTE | 2019-12-08 13:17 | STRESSREP ---
Stress Test Report Pharmacologic myocardial perfusion stress test. 69-year-old man with a history of coronary artery disease status post coronary artery bypass surgery. Stress protocol: Resting EKG demonstrates normal sinus rhythm with a rate of 86 bpm and frequent premature ventricular complexes some in the pattern of bigeminy. 0.4 mg of regadenoson was infused per usual protocol followed by rapid intravenous saline flush injection continuous EKG monitoring was performed. The maximum heart rate attained was 103 bpm which was 68% of max impacted heart rate the maximum workload was 1 metabolic equivalent. At rest there were no ST or T wave changes noted to suggest abnormal flow reserve at peak infusion nonspecific ST-T wave changes were noted. Downsloping ST depression was present at rest and during peak infusion. Premature ventricular complexes were noted. The final blood pressure was 172/70 mmHg. Myocardial perfusion protocol. 14.7 mCi of technetium 99m sestamibi was injected at rest. 0.4 mg of regadenoson was infused. Appropriately perfusion 44.5 mCi of technetium 99m sestamibi was injected stress images were obtained stress and rest images were reconstructed and compared in the short axis vertical long horizontal long axis. Gated images were also obtained Perfusion SPECT analysis: Review of the stress images demonstrate normal uptake of tracer noted in all areas of the myocardium the resting images similarly demonstrate normal perfusion in all areas of the myocardium. No infarct is noted no ischemia is noted. Conclusion: Normal pharmacologic myocardial perfusion stress test. Sinus rhythm with significant ventricular ectopy.
== END | disposition home or self-care (01) ==
PROVIDERS: PCP Family Medicine; Referring Provider Family Medicine; Visit Provider Family Medicine
DX: I25.10 Atherosclerotic heart disease of native coronary artery without angina pectoris (principal); I49.8 Other specified cardiac arrhythmias; R06.00 Dyspnea, unspecified; R94.31 Abnormal electrocardiogram [ECG] [EKG]; R06.02 Shortness of breath
CPT/HCPCS: 78452; 93017; 93306; A9500; Q9957; A4216; C8929; J2785

== ENCOUNTER → 2020-10-20 14:08 | Outpatient (CLI) | payer MEDICARE, OTHER, SELFPAY ==
[2020-08-02 14:38] VITALS: BMI 40.1
--- NOTE | 2020-10-20 14:13 | RAD_ITS ---
History: Dyspnea EXAMINATION/TECHNIQUE: XR Chest 2 Views: COMPARISON: June 28, 2018 FINDINGS: LINES/DEVICES: None. LUNGS: Bibasilar pleural-parenchymal densities noted symptoms with pneumonia with parapneumonic effusions. No pneumothorax. MEDIASTINUM AND CARDIOVASCULAR STRUCTURES: Cardiac silhouette not enlarged. Central airways and mediastinal contour are unremarkable. BONES AND SOFT TISSUES: Sternotomy wires are in place. RAD/Chest PA and Lateral IMPRESSION: Bibasilar pneumonia with small bilateral pleural effusions at 1510 Reported and signed by: Acosta Rhoades MD Electronically Signed: Acosta Rhoades MD at 15:09 EDT Tel , Service support ,
[2020-10-20 17:42] LABS: BNP,B-Type NATRIURETIC PEPTIDE 375.5 pg/mL (0-100)
[2020-10-20 18:08] LABS: D-Dimer Quantitative (DVT/PE) 2.54 FEU/ug/m (0.27-0.49)
== END ==
PROVIDERS: PCP Family Medicine; Referring Provider Family Medicine; Visit Provider Family Medicine
DX: R06.00 Dyspnea, unspecified (principal)
CPT/HCPCS: 36415; 71046; 83880; 85379

== ENCOUNTER → 2020-10-21 11:30 | Outpatient (CLI) | payer MEDICARE, OTHER, SELFPAY ==
[2020-08-02 14:38] VITALS: BMI 40.1
--- NOTE | 2020-10-21 11:36 | CT_ITS ---
EXAM: CT ANGIOGRAPHY CHEST WITHOUT AND WITH INTRAVENOUS CONTRAST : 1950 CLINICAL INDICATION: DYSPNEA W/HYPOXIA ON EXERTION,POSSIBLE PNEUMONIA,POSSIBLE CHF -- ELEVATED DDIMER TECHNIQUE: Helically acquired angiography images were obtained of the chest without and with intravenous contrast. This CT exam was performed using one or more of the following dose reduction techniques: automated exposure control, adjustment of the mA and/or kV according to patient size, and/or use of iterative reconstruction technique. This report was created using [employer] report generation technology. MIP reconstructed images were created and reviewed. CONTRAST: IV 100mL Isovue-370 COMPARISON: Chest radiograph October 20, 2020 FINDINGS: PULMONARY ARTERIES: Unremarkable. Normal in caliber. No evidence of pulmonary embolism. AORTA: Unremarkable. Normal in caliber. No evidence of dissection. GREAT VESSELS OF AORTIC ARCH: Unremarkable. Normal in caliber. No evidence of dissection. LUNGS AND PLEURAL SPACES: Small bilateral pleural effusions are noted greater in size on the right than left associated with compression atelectasis of a portion of the right lower lobe. No mass. No pneumothorax. HEART: Mild cardiomegaly with left ventricular hypertrophy. No pericardial effusion. No signs of right heart strain. MEDIASTINUM: Mildly enlarged mediastinal lymph nodes noted within the AP window suggestive of reactive change. Esophagus is unremarkable. No hiatal hernia. THYROID: Unremarkable. No thyroid lesions. BONES/JOINTS: Unremarkable. No suspicious lytic or blastic abnormality. CT/CTA Chest W/WO Contrast IMPRESSION: 1. No evidence of acute pulmonary embolism. 2. Bilateral pleural effusions with compression atelectasis of the right lower lobe. 3. Mild cardiomegaly with left ventricular hypertrophy. Individualized dose optimization techniques were used for this CT. at 1245 Reported and signed by: Acosta Rhoades MD Electronically Signed: Acosta Rhoades MD at 12:44 EDT Tel , Service support ,
[2020-10-21 11:56] LABS: CREATININE FINGERSTICK 0.8 mg/dL (0.70-1.30); EGFR FINGERSTICK > 60.0000 mL/min (>60)
== END ==
PROVIDERS: PCP Family Medicine; Referring Provider Family Medicine; Visit Provider Family Medicine
DX: R06.00 Dyspnea, unspecified (principal); R09.02 Hypoxemia
CPT/HCPCS: 71275; Q9967; A4216

== ENCOUNTER → 2020-10-31 11:15 | Outpatient (CLI) | payer MEDICARE, OTHER, SELFPAY ==
--- NOTE | 2020-10-31 11:18 | RAD_ITS ---
STUDY: X-RAY CHEST REASON FOR EXAM: Male, 70 years old. PLEURAL EFFUSION TECHNIQUE: PA and lateral views of the chest. COMPARISON: 10/20/2020 FINDINGS: Status post median sternotomy. The lungs are clear and expanded. Small right pleural effusion which is unchanged. There is moderate cardiac enlargement. Normal mediastinum and benito. Normal visualized pulmonary arteries. Normal visualized aortic arch and descending thoracic aorta. Normal visualized thoracic spine. Normal visualized ribs, clavicles, and shoulders. There is no demonstrated abnormality of the visualized soft tissue structures of the upper abdomen. RAD/Chest PA and Lateral IMPRESSION: No change from 10/20/2020. Electronically Signed: Fan Vazquez MD at 9:37 EDT Tel , Service support ,
== END ==
PROVIDERS: PCP Family Medicine; Referring Provider Family Medicine; Visit Provider Family Medicine
DX: J90 Pleural effusion, not elsewhere classified (principal)
CPT/HCPCS: 71046

== ENCOUNTER → 2020-11-23 14:15 | Outpatient (CLI) | payer MEDICARE, OTHER, SELFPAY ==
--- NOTE | 2020-11-23 14:18 | CT_ITS ---
STUDY: CT CHEST, ABDOMEN T PELVIS WITH CONTRAST REASON FOR EXAM: Male, 70 years old. Colon cancer. Status post partial colectomy. Recent pulmonary embolus. RADIATION DOSAGE (If Supplied By Facility): CTDIvol = ( 24.14 ) mGy, DLP = ( 2521.19 ) mGycm TECHNIQUE: Transaxial imaging was performed following intravenous administration of Oral and amp; IV Readi-CAT and amp; 100mL Isovue-300. Individualized dose optimization techniques were used for this CT. COMPARISON: CT chest dated 10/21/20 FINDINGS: There is a small left pleural effusion and moderate right pleural effusion with overlying atelectasis. There are no pulmonary infiltrates. There are no pulmonary nodules or masses. There is no pneumothorax. The patient is status post sternotomy and coronary artery bypass. The [place] coronary arteries are calcified. The heart is mildly enlarged, but stable. There is no pericardial effusion. There is stable mild mediastinal lymphadenopathy with the largest node measuring 1.5 cm in the prevascular space. There is no evidence of thoracic aortic aneurysm. The patient is status post cholecystectomy. The liver is within normal limits. There are no suspicious hepatic lesions. The spleen is normal in size. The pancreas is within normal limits. The adrenal glands are within normal limits. There are no renal or ureteral stones. There is no hydronephrosis. There are no focal renal lesions. Normal visualized stomach. There is no bowel obstruction or inflammation. There are postsurgical changes noted from a prior right hemicolectomy. The abdominal aorta is normal in caliber. There are atherosclerotic calcifications noted in the abdominal aorta and its branches. There is no abdominal or pelvic free air, free fluid, fluid collection or lymphadenopathy. There are no destructive osseous lesions. There are degenerative changes noted in the spine. CT/CT Chest, Abd, Pel w/Contrast IMPRESSION: No evidence of metastatic disease in the chest, abdomen or pelvis. Small left pleural effusion and moderate right pleural effusion with overlying atelectasis. No pulmonary infiltrates. Stable mild mediastinal lymphadenopathy. Coronary artery disease, status post sternotomy and coronary artery bypass. Status post right hemicolectomy. No bowel obstruction or inflammation. Electronically Signed: Milad Ocasio MD at 10:03 EDT Tel , Service support ,
[2020-11-23 14:46] LABS: CREATININE FINGERSTICK 1.1 mg/dL (0.70-1.30); EGFR FINGERSTICK > 60.0000 mL/min (>60)
== END ==
PROVIDERS: PCP Family Medicine; Referring Provider Family Medicine; Visit Provider Family Medicine
DX: I26.99 Other pulmonary embolism without acute cor pulmonale (principal); J90 Pleural effusion, not elsewhere classified; R59.0 Localized enlarged lymph nodes; Z85.038 Personal history of other malignant neoplasm of large intestine
CPT/HCPCS: 71260; 74177; Q9967